=== PATIENT | female | born 1975 | race African-American/Black ===

== ENCOUNTER 2024-03-25 10:19 | Outpatient (CLI) | payer OTHER, SELFPAY ==
--- NOTE | ~2024-03-25 | MR_ITS ---
EXAMINATION: MR cervical spine wo con DATE: 03/25/2024 11:10 INDICATION: Cervical radiculopathy. TECHNIQUE: Magnetic resonance imaging (MRI) of the cervical spine was performed without intravenous c ontrast. COMPARISON: None FINDINGS: There is mild kyphosis of lower cervical spine. Vertebral body heights are normal. There is mildly decreased disc height at C4-C5, C5-C6, and C6-C7. The spinal cord signal intensity is normal. The following disc levels are specifically discussed: C2-C3: The disc does not extend beyond the endplate margin. There is no uncovertebral joint osteoarth ritis. There is no facet joint osteoarthritis. There is no neural foraminal stenosis. There is no carlos tral canal stenosis. C3-C4: There is a central extrusion. There is no uncovertebral joint osteoarthritis. There is mild bi lateral facet joint osteoarthritis. There is mild left neural foraminal stenosis. There is mild centr al canal stenosis. C4-C5: The disc does not extend beyond the endplate margin. There is mild bilateral uncovertebral eduin nt osteoarthritis. There is mild bilateral facet joint osteoarthritis. There is mild left neural fora soren stenosis. There is no central canal stenosis. C5-C6: The disc is bulging. There is moderate bilateral uncovertebral joint osteoarthritis. There is no facet joint osteoarthritis. There is mild bilateral neural foraminal stenosis. There is mild centr al canal stenosis with ventral indentation of the spinal cord. C6-C7: The disc is bulging with superimposed left central extrusion. There is mild bilateral uncovert ebral joint osteoarthritis. There is mild bilateral facet joint osteoarthritis. There is mild bilater al neural foraminal stenosis. There is severe central canal stenosis with ventral and dorsal indentat ion of the spinal cord. C7-T1: The disc does not extend beyond the endplate margin. There is no uncovertebral joint osteoarth ritis. There is mild bilateral facet joint osteoarthritis. There is no neural foraminal stenosis. The re is no central canal stenosis. IMPRESSION: 1. Severe spondylosis at C6-C7 and mild spondylosis at other levels. Reviewed, dictated and finalized at location [] [employer]
--- OUTSIDE RECORDS SUMMARY | 2024-03-25 10:31 | XMS_ITS | Patient Health Summary ---
Author Organization [facility] Address [address] [place] [address] Care Team Providers Care Fish Grader Name Role Phone Juan Ace MD Primary Care Provider Note from [facility],non-owned Affiliates and Associated Physician Practices is amultiple site organization consisting of ambulatory clinics and hospital sitesin [place], [place], [place] and [place]. This disclosure is being madepursuant to the Care Everywhere program and may not contain all information available regarding this patient. Last updated 17.[facility] Allergies No known active allergies Medications * Be aware that medications may not be up to date on this document. Alwaysverify current medications with the patient. * Probiotic Product (PROBIOTIC PO) Active Problems Problem Noted Date Diagnosed Date Subarachnoid hemorrhage 09/03/2020 Malignant hypertension 09/03/2020 Social History Tobacco Use Types Packs/Day Years Used Date Smoking Tobacco: Never Smokeless Tobacco: Never Alcohol Use Standard Drinks/Week Comments Yes 0 (1 standard drink = 0.6 oz pur e alcohol) AUDIT-C Answer Date Recorded Frequency of Alcohol Consumption Monthly or less 05/29/2019 Average Number of Drinks Not on file 020 Frequency of Binge Drinking Not on file 08/2019 Sex and Gender Information Value Date Recorded Sex Assigned at Not on file Gender Identity Not on file Sexual Orientation Not on file Last Filed Vital Signs Vital Sign Reading Time Taken Comments Blood Pressure 134/84 10/29/2020 2:52 PM CDT Pulse 76 10/29/2020 2:52 PM CDT Temperature 36.6 ??C (97.8 ??F) 10/29/2020 2:52 PM CD T Respiratory Rate 18 10/29/2020 2:52 PM CDT Oxygen Saturation 100% 10/29/2020 2:52 PM CDT Inhaled Oxygen Concentration - - Weight 72.8 kg (160 lb 6.4 oz) 10/29/2020 2:52 P M CDT Height 170.2 cm (5' 7 ) 10/29/2020 2:52 PM CDT Body Mass Index 25.12 10/29/2020 2:52 PM CDT Procedures * CT HEAD WO CONTRAST(Performed 10/29/2020) Performed for Subarachnoid hemorrhage (HCC) * CARDIAC EKG ORDER(Performed 09/15/2020) * PT EVAL AND TREAT(Performed 09/10/2020) * OT EVAL AND TREAT(Performed 09/10/2020) * PT EVAL AND TREAT(Performed 09/10/2020) * OT EVAL AND TREAT(Performed 09/10/2020) * MAGNESIUM BLOOD(Performed 09/10/2020) * CBC W/O DIFFERENTIAL(Performed 09/10/2020) * BASIC METABOLIC PANEL (CALCIUM TOTAL)(Performed 09/10/2020) * IR CAROTID CEREBRAL ANGIOGRAM(Performed 09/09/2020) Performed for Subarachnoid hemorrhage (HCC) * MAGNESIUM BLOOD(Performed 09/09/2020) * CBC W/O DIFFERENTIAL(Performed 09/09/2020) * BASIC METABOLIC PANEL (CALCIUM TOTAL)(Performed 09/09/2020) * MAGNESIUM BLOOD(Performed 09/08/2020) * CBC W/O DIFFERENTIAL(Performed 09/08/2020) * BASIC METABOLIC PANEL (CALCIUM TOTAL)(Performed 09/08/2020) * MAGNESIUM BLOOD(Performed 09/07/2020) * CBC W/O DIFFERENTIAL(Performed 09/07/2020) * BASIC METABOLIC PANEL (CALCIUM TOTAL)(Performed 09/07/2020) * MAGNESIUM BLOOD(Performed 09/06/2020) * CBC W/O DIFFERENTIAL(Performed 09/06/2020) * BASIC METABOLIC PANEL (CALCIUM TOTAL)(Performed 09/06/2020) * MAGNESIUM BLOOD(Performed 09/05/2020) * CBC W/O DIFFERENTIAL(Performed 09/05/2020) * BASIC METABOLIC PANEL (CALCIUM TOTAL)(Performed 09/05/2020) * MRI CERVICAL SPINE WWO CONT(Performed 09/04/2020) Performed for Subarachnoid hemorrhage (HCC) * MRI BRAIN WWO CONTRAST(Performed 09/04/2020) Performed for Subarachnoid hemorrhage (HCC) * IR CAROTID CEREBRAL ANGIOGRAM(Performed 09/04/2020) Performed for Subarachnoid hemorrhage (HCC) * CARDIAC EKG ORDER(Performed 09/04/2020) * MAGNESIUM BLOOD(Performed 09/04/2020) * CBC W/O DIFFERENTIAL(Performed 09/04/2020) * BASIC METABOLIC PANEL (CALCIUM TOTAL)(Performed 09/04/2020) * TROPONIN I(Performed 09/03/2020) * CT HEAD WO CONTRAST(Performed 09/03/2020) Performed for Subarachnoid hemorrhage (HCC) * TROPONIN I(Performed 09/03/2020) * URINE DRUG SCREEN IMMUNOASSAY(Performed 09/03/2020) * HCG URINE QUALITATIVE(Performed 09/03/2020) * BLOOD TYPE VERIFICATION(Performed 09/03/2020) * SARS-COV-2 (COVID-19)+INFLU A+B PCR RAPID(Performed 09/03/2020) * TYPE + SCREEN PANEL(Performed 09/03/2020) * SICKLE CELL SCREEN(Performed 09/03/2020) * TROPONIN I(Performed 09/03/2020) * PT-INR [facility](Performed 09/03/2020) * COMPREHENSIVE METABOLIC PANEL(Performed 09/03/2020) * CBC W AUTO DIFFERENTIAL(Performed 09/03/2020) * EKG 12-LEAD(Performed 09/03/2020) Performed for Subarachnoid hemorrhage (HCC) Results * CT HEAD WO CONTRAST (10/29/2020 2:24 PM CDT) Only the most recent of2 resultswithin the time period is included. Anatomical Region Laterality Modality Head Computed Tomogra phy 10/29/2020 7:06 PM CDT Impressions 10/29/2020 7:19 PM CDT IMPRESSION: 1. No acute intracranial abnormality. This report was electronically signed by ANDREA LOCKWOOD ??on 10/29/2020 7:19 PM . Narrative 10/29/2020 7:19 PM CDT EXAM: CT BRAIN WITHOUT CONTRAST CLINICAL INDICATION: I60.9: Subarachnoid hemorrhage TECHNIQUE: Contiguous axial images through head were obtained without intravenous contrast administration. ??Brain and bone window images were obtained. COMPARISON: 09/03/[address] FINDINGS: Brain parenchyma: Brain volume is normal for age. ??No large acute infarction, mass, hemorrhage or abnormal extra-axial fluid collection. Ventricles and the midline: Ventricles are normal without a midline shift or hydrocephalus. Skull and soft tissues: No acute fracture, bony or soft tissue abnormality. Extracranial structures: Orbits are normal bilaterally. Visualized parts of paranasal sinuses demonstrate no significant mucosal disease or opacification. ??Visualized mastoids and tympanic cavities demonstrate no significant opacification. Procedure Note Andrea Lockwood MD - 10/29/2020 EXAM: CT BRAIN WITHOUT CONTRAST CLINICAL INDICATION: I60.9: Subarachnoid hemorrhage TECHNIQUE: Contiguous axial images through head were obtained without intravenous contrast administration. Brain and bone window images were obtained. COMPARISON: 09/03/[address] FINDINGS: Brain parenchyma: Brain volume is normal for age. No large acute infarction, mass, hemorrhage or abnormal extra-axial fluid collection. Ventricles and the midline: Ventricles are normal without a midline shift or hydrocephalus. Skull and soft tissues: No acute fracture, bony or soft tissue abnormality. Extracranial structures: Orbits are normal bilaterally. Visualized parts of paranasal sinuses demonstrate no significant mucosal disease or opacification. Visualized mastoids and tympanic cavities demonstrate no significant opacification. IMPRESSION: 1. No acute intracranial abnormality. This report was electronically signed by ANDREA LOCKWOOD on 10/29/2020 7:[address] ORDERABLES * CARDIAC EKG ORDER (09/15/2020 11:02 AM CDT) Only the most recent of2 resultswithin the time period is included. Narrative 09/15/2020 11:02 AM CDT Ordered by an unspecified provider. Scanned Document CARDIAC SERVICES ORD ERABLES * (ABNORMAL) CBC W/O DIFFERENTIAL (09/10/2020 4:52 AM CDT) Only the most recent of7 resultswithin the time period is included. WBC 7.9 3.5 - 10.5 10? 3 /uL 09/10/2020 5:08 AM [facility] RBC 4.09 3.80 - 5.20 10? 6 /uL 09/10/2020 5:08 AM [facility] Hemoglobin 10.9(L) 12.0 - 15.6 g/dL 09/10/2020 5:08 AM [facility] Hematocrit 33.1(L) 35.0 - 45.0 % 09/10/2020 5:08 AM [facility] MCV 80.9 80.7 - 98.3 fL 09/10/2020 5:08 AM [facility] MCH 26.7 26.7 - 34.0 pg 09/10/2020 5:08 AM [facility] MCHC 32.9 30.8 - 35.9 g/dL 09/10/2020 5:08 AM [facility] Platelet Count 294 150 - 400 10? 3 /uL 09/10/2020 5:08 AM [facility] RDW-SD 38.2 36.0 - 50.0 fL 09/10/2020 5:08 AM [facility] RDW-CV 13.1 11.2 - 14.8 % 09/10/2020 5:08 AM [facility] MPV 10.2 9.4 - 12.9 fL 09/10/2020 5:08 AM [facility] nRBC Absolute 0.00 0 10? 3 /uL 09/10/2020 5:08 AM [facility] nRBC Auto 0.0 0 /100 WBC 09/10/2020 5:08 AM [facility] Blood BLOOD SPECIMEN / Unknown Venipuncture / Unknown 09/10/2020 4:52 AM CDT 09/10/2020 5:01 AM [facility] Oliver Haskins MD LAB - HEMATOLOGY O RDERABLES [facility] [address] [place] [address], [facility] [phone] * BASIC METABOLIC PANEL (CALCIUM TOTAL) (09/10/2020 4:52 AM CDT) Only the most recent of7 resultswithin the time period is included. BUN 13 7 - 26 mg/dL 09/10/2020 5:27 AM [facility] Creatinine 0.63 0.56 - 0.96 mg/dL 09/10/2020 5:27 AM [facility] Sodium 140 136 - 145 mmol/L 09/10/2020 5:27 AM [facility] Potassium 4.0 3.5 - 4.5 mmol/L 09/10/2020 5:27 AM [facility] Chloride 106 98 - 107 mmol/L 09/10/2020 5:27 AM [facility] CO2 28 22 - 29 mmol/L 09/10/2020 5:27 AM [facility] Glucose 109 70 - 115 mg/dL 09/10/2020 5:27 AM [facility] Calcium 8.8 8.4 - 10.2 mg/dL 09/10/2020 5:27 AM [facility] Anion Gap 10 8 - 18 09/10/2020 5:27 AM [facility] BUN/Creatinine Ratio 21 7 - 23 09/10/2020 5:27 AM [facility] Osmolality Calculated 291 270 - 300 mOsm/kg 09/10/2020 5:27 AM [facility] eGFR by CKD-EPI >90 >=90 mL/min/1.7 3 m2 09/10/2020 5:27 AM [facility] Blood BLOOD SPECIMEN / Unknown Venipuncture / Unknown 09/10/2020 4:52 AM CDT 09/10/2020 5:01 AM T Oliver Haskins MD LAB - CHEMISTRY OR DERABLES [address] [address], [facility] [phone] * MAGNESIUM BLOOD (09/10/2020 4:52 AM CDT) Only the most recent of7 resultswithin the time period is included. Pathologist [facility] Magnesium 1.8 1.6 - 2.6 mg/dL 09/10/2020 5:27 AM CDT [facility] Blood BLOOD SPECIMEN / Unknown Venipuncture / Unknown 09/10/2020 4:52 AM CDT 09/10/2020 5:01 AM CDT Oliver Haskins MD LAB - CHEMISTRY OR DERABLES Performing Organization Address City/State/[facility] Co de Phone Number [facility] [address] [place] [address], [facility] [phone] * IR CAROTID CEREBRAL ANGIOGRAM (09/09/2020 12:20 PM CDT) Only the most recent of2 resultswithin the time period is included. Anatomical Region Laterality Modality Head X-Ray Angiograph y 09/09/2020 1:26 PM CDT Impressions 09/29/2020 2:14 PM CDT Impression: 1. No angiographic evidence of aneurysm, dissection, or other vascular abnormality within anterior and posterior circulation to suggest an underlying etiology of hemorrhage 2. There is fusiform dilatation of R V3-4 junction 3. Xkugff-go-mbaap appearance of bilateral ICAs in mid-cervical segments is highly suggestive ofFMD changes as previously described in angiogram dated 09/04/2020. I, Dr. NAVDEEP ANTHONY M.D. have personally reviewed and interpreted this examination/study. This report was electronically signed by NAVDEEP ANTHONY M.D. ??on 09/29/2020 2:14 PM . Narrative 09/29/2020 2:14 PM CDT Procedure: Diagnostic Catheter Cerebral Angiogram Comparison Study: Cerebral Angiogram dated 09/04/2020 History: The patient is a 44 year-old woman who presents with subarachnoid hemorrhage. Catheter angiography from 09/04/2020 was negative for aneurysm or vascular abnormalities. She is here for repeat catheter angiography to rule out the presence of aneurysm or other vascular abnormality as the cause of the hemorrhage.. Janitor Helper: Yamil Anthony Page Makeup System Operator: Carlo Paulson Vessels: Ultrasound Guided Access of Right Femoral Radial Artery Left Vertebral Artery Angiogram: Cerebral Left Internal Carotid Artery Angiogram: Cerebral Left External Carotid Artery Angiogram Right Internal Carotid Artery Angiogram: Cerebral Right External Carotid Artery Angiogram Right Vertebral Artery Angiogram: Cerebral Right Femoral Artery Angiogram Anesthesia: Moderate sedation on this adult patient ws ordered by the subway train operator, administered intravenously in my presence, and monitored by the procedure nurse as an independent trained observer who was present throughout the procedure. The following parameters were monitored: oxygen saturation, heart rate, blood pressure, and response to care. Intra-service sedation start time was 1045 and end time was 1205 during which I was present. Total physician intra-service sedation time was 80 minutes. For details on sedation patient evaluation, please review the evaluation in [facility]. For details on monitored clinical parameters during the intra-service sedation time, please review the procedure nurse documentation in [facility]. Procedural detail: The risks, benefits, and alternatives to procedure were discussed in detail with the patient and her family. These included but were not limited to the risk of blood loss, vessel injury, stroke, renal injury, and contrast allergy. The patient was brought to the biplane angiography suite where she underwent prep and drape procedures. Limited ultrasound of the right common femoral ??artery demonstrated a patent vessel. The take off of the profunda and other arteries were identified. A hull scale image was documented. The right common femoral artery was accessed using a micropuncture needle. The needle entry was documented. Following a series of exchanges, a 6 Norwegian 35 cm Brite tip sheath was placed in the right femoral artery and a 5 Norwegian tapered angled catheter was navigated into the aortic arch. The catheter was used to select the left subclavian artery followed by the left vertebral artery and a cerebral angiogram was obtained. The catheter was returned to the arch and used to select the left common carotid artery followed by the left internal carotid artery and a cerebral angiogram was obtained. The catheter was returned to the common carotid artery and used to select the left external carotid artery and an angiogram was obtained. The catheter was returned to the arch and used to select the brachiocephalic artery followed by the right common carotid artery and finally the right internal carotid artery and a cerebral angiogram was obtained. The catheter was returned to the right common carotid artery and used select the right external carotid artery and an angiogram was obtained. The catheter was returned to the brachiocephalic artery and used to select the right subclavian artery followed by the right vertebral artery and a cerebral angiogram was obtained. The right femoral artery angiogram was obtained through the sheath. All catheters and sheaths were removed from the arterial system. Hemostasis was achieved using a 6 Norwegian Angio-Seal closure device. Hemostasis was immediate at the end of the closure procedure. The right dorsalis pedis pulse was palpable at the end of the closure procedure. The patient tolerated the procedure without immediate complications. She was returned to the recovery area and hemodynamically stable condition neurologically unchanged. The estimated blood loss was less than 10 mL. A total of ??10.5 ??minutes of fluoroscopic time and 140 ml of Isovue-300 contrast were utilized for the study. Findings: There was good arterial, capillary, and venous opacification of all angiographic runs. The left vertebral artery angiogram reveals a V3, V4, and vertebrobasilar junction that are normal in course and caliber. The major vessels to the cerebellum are normal in course and caliber. The basilar artery and posterior cerebral arteries are also normal in course and caliber. The venous drainage is also normal. There is no evidence of aneurysm or dissection on this angiogram. The left common carotid artery angiogram reveals a normal carotid bifurcation. Visualized branches of the external carotid artery are normal in course and caliber. The left internal carotid artery angiogram reveals an irregular ryhjed-cv-vxyeh appearance in the mid-distal cervical segment that was previously visualized on prior angiography. The middle cerebral artery and anterior cerebral artery are also normal in course and caliber as is the venous drainage. There is no evidence of aneurysm. The left external carotid artery angiogram reveals a normal course and caliber of the visualized branches. There is no evidence of early venous shunting to suggest underlying vascular abnormality. The right internal carotid artery angiogram reveals an irregular tkgxse-gd-kqtlj appearance in the mid-distal cervical segment that was previously visualized on prior angiography. The middle cerebral artery and anterior cerebral artery are also normal in course and caliber as is the venous drainage. There is no evidence of aneurysm. The right external carotid artery angiogram reveals a normal course and caliber of the visualized branches. There is no evidence of early venous shunting to suggest underlying vascular abnormality. The right vertebral artery angiogram reveals a fusiform dilatation at the V3-4 junction. There is no evidence of aneurysm or dissection in this angiogram. There is mild irregularity of the V2 segment. The remainder of the posterior circulation is as described above. The right femoral artery angiogram reveals a puncture site above the femoral bifurcation. Procedure Note Edgell, Navdeep C, MD - 09/29/2020 Procedure: Diagnostic Catheter Cerebral Angiogram Comparison Study: Cerebral Angiogram dated 09/04/2020 History: The patient is a 44 year-old woman who presents withsubarachnoid hemorrhage. Catheter angiography from 09/04/2020 was negative foraneurysm or vascular abnormalities. She is here for repeat catheter angiographyto rule out the presence of aneurysm or other vascular abnormality as the cause of the hemorrhage.. Janitor Helper: Yamil Anthony Page Makeup System Operator: Carlo Paulson Vessels: Ultrasound Guided Access of Right Femoral Radial Artery Left Vertebral Artery Angiogram: Cerebral Left Internal Carotid Artery Angiogram: Cerebral Left External Carotid Artery Angiogram Right Internal Carotid Artery Angiogram: Cerebral Right External Carotid Artery Angiogram Right Vertebral Artery Angiogram: Cerebral Right Femoral Artery Angiogram Anesthesia: Moderate sedation on this adult patient ws ordered by the subway train operator, administered intravenously in my presence, and monitored bythe procedure nurse as an independent trained observer who was present throughout the procedure. The following parameters were monitored:oxygen saturation, heart rate, blood pressure, and response to care. Intra-service sedation start time was 1045 and end time was 1205 during which I was present. Total physician intra-service sedation time was 80 minutes. For details on sedation patient evaluation, please review the evaluation in [facility]. For details on monitored clinical parameters during the intra-service sedation time, please review the procedure nurse documentation in [facility]. Procedural detail: The risks, benefits, and alternatives to procedurewere discussed in detail with the patient and her family. These included but were not limited to the risk of blood loss, vessel injury, stroke, renal injury, and contrast allergy. The patient was brought to the biplane angiography suite where she underwent prep and drape procedures. Limited ultrasound of the right common femoral artery demonstrated a patent vessel. The take off of the profunda and other arteries were identified. A hull scale image was documented. The right common femoral artery was accessed using a micropuncture needle. The needle entry was documented. Following a series of exchanges, a 6 Norwegian 35 cm Brite tip sheath was placed in the right femoral artery and a 5 Norwegian tapered angled catheter was navigated into the aortic arch. The catheter was used to select the left subclavian artery followed bythe left vertebral artery and a cerebral angiogram was obtained. Thecatheter was returned to the arch and used to select the left common carotidartery followed by the left internal carotid artery and a cerebral angiogramwas obtained. The catheter was returned to the common carotid artery andused to select the left external carotid artery and an angiogram wasobtained. The catheter was returned to the arch and used to select the brachiocephalic artery followed by the right common carotid artery and finally the right internal carotid artery and a cerebral angiogram was obtained. The catheter was returned to the right common carotid arteryand used select the right external carotid artery and an angiogram was obtained. The catheter was returned to the brachiocephalic artery andused to select the right subclavian artery followed by the right vertebral artery and a cerebral angiogram was obtained. The right femoral artery angiogram was obtained through the sheath. All catheters and sheaths were removed from the arterial system. Hemostasis was achieved using a 6 Norwegian Angio-Seal closure device. Hemostasis was immediate at the end of the closure procedure. The right dorsalis pedis pulse was palpable at the end of the closure procedure. The patient tolerated the procedure without immediate complications. She was returned to the recovery area and hemodynamically stable condition neurologically unchanged. The estimated blood loss was less than 10 mL. A total of 10.5 minutes of fluoroscopic time and 140 ml of Isovue-300 contrast were utilized for the study. Findings: There was good arterial, capillary, and venous opacification of all angiographic runs. The left vertebral artery angiogram reveals a V3, V4, andvertebrobasilar junction that are normal in course and caliber. The major vessels to the cerebellum are normal in course and caliber. The basilar artery and posterior cerebral arteries are also normal in course and caliber. The venous drainage is also normal. There is no evidence of aneurysm or dissection on this angiogram. The left common carotid artery angiogram reveals a normal carotid bifurcation. Visualized branches of the external carotid artery arenormal in course and caliber. The left internal carotid artery angiogram reveals an irregular pubjdg-pt-ucjss appearance in the mid-distal cervical segment that was previously visualized on prior angiography. The middle cerebral arteryand anterior cerebral artery are also normal in course and caliber as is the venous drainage. There is no evidence of aneurysm. The left external carotid artery angiogram reveals a normal course and caliber of the visualized branches. There is no evidence of early venous shunting to suggest underlying vascular abnormality. The right internal carotid artery angiogram reveals an irregular zvxevu-ww-pgunl appearance in the mid-distal cervical segment that was previously visualized on prior angiography. The middle cerebral arteryand anterior cerebral artery are also normal in course and caliber as is the venous drainage. There is no evidence of aneurysm. The right external carotid artery angiogram reveals a normal course and caliber of the visualized branches. There is no evidence of early venous shunting to suggest underlying vascular abnormality. The right vertebral artery angiogram reveals a fusiform dilatation atthe V3-4 junction. There is no evidence of aneurysm or dissection in this angiogram. There is mild irregularity of the V2 segment. The remainderof the posterior circulation is as described above. The right femoral artery angiogram reveals a puncture site above the femoral bifurcation. Impression: 1. No angiographic evidence of aneurysm, dissection, or other vascular abnormality within anterior and posterior circulation to suggest an underlying etiology of hemorrhage 2. There is fusiform dilatation of R V3-4 junction 3. Ejfyho-yz-lnqpj appearance of bilateral ICAs in mid-cervicalsegments is highly suggestive ofFMD changes as previously described in angiogram dated 09/04/2020. I, Dr. NAVDEEP ANTHONY M.D. have personally reviewed and interpretedthis examination/study. This report was electronically signed by NAVDEEP ANTHONY M.D. on09/29/2020 2:14 PM . Chad Han MD IR ORDERABLES * MRI CERVICAL SPINE WWO CONT (09/04/2020 6:02 PM CDT) Anatomical Region Laterality Modality Spine Magnetic Resonan ce 09/05/2020 10:1 3 AM CDT Impressions 09/05/2020 10:41 AM CDT IMPRESSION: 1.Suggestion of subtle lateral vascular suppression in the bilateral cerebral sulci, predominantly posteriorly and in the interpeduncular cistern concerning for trace subarachnoid hemorrhage. 2.No evidence of mass effect or midline shift. 3.No evidence of abnormal enhancement. 4.Multilevel degenerative disc and joint disease as detailed level by level above. Subtle cord signal changes concerning for cord edema and/or myelomalacia. Evaluation is however limited due to the presence of motion artifacts. This report was electronically signed by JULIO RAO ??on 09/05/2020 10:41 AM . Narrative 09/05/2020 10:41 AM CDT MRI BRAIN WWO CONTRAST, MRI CERVICAL SPINE WWO CONT DATE: 09/04/2020 6:02 PM EXAMINATION: 1.Magnetic resonance imaging (MRI) of the brain without and with contrast 2.MRI of the cervical spine without and with contrast HISTORY: I60.9: Subarachnoid hemorrhage TECHNIQUE: MRI of the brain and cervical spine was performed prior to and following the uneventful administration of 7 mL intravenous GADAVIST contrast according to standard protocol. COMPARISON: CT of the head from 09/03/2020. FINDINGS: Brain: There is very subtle lack of FLAIR signal suppression in the bilateral cerebral sulci, predominantly posteriorly and within the interpeduncular cistern concerning for trace subarachnoid hemorrhage. No evidence of acute cerebral infarction is seen. The ventricles are of normal size, shape, and morphology. No mass effect or midline shift is seen. The brain parenchyma appears otherwise grossly unremarkable for the patient's stated age. No enhancing lesions are identified. The corpus callosum and sella appear normal. The posterior fossa and brainstem appear normal. Other than mild paranasal sinus disease, the visualized portions of the orbits, paranasal sinuses, and mastoids appear normal. Normal flow voids are demonstrated in the carotid arteries and basilar artery. The calvarium appears normal. Cervical spine: The images are degraded due to motion artifacts. Mild kyphosis centered at C5-C6. Vertebral bodies are normal in height without evidence of compression fractures. Marrow signal intensity is normal. The craniocervical junction and its stabilizing ligaments appear normal. Multilevel mild cord abutment and trace T2/STIR hyperintensity concerning for a cord edema and/or myelomalacia however evaluation is limited due to the presence of motion artifacts. No abnormal enhancement is identified. There is mild disc height loss at multiple levels. There is developmental cervical spinal canal stenosis and superimposed multilevel degenerative disc and joint disease. There are varying degrees of mild facet osteoarthritis. There are varying degrees of mild uncovertebral joint osteoarthritis with the same degree of neural foraminal stenosis at these levels. No soft tissue abnormality is identified. Normal flow voids are identified in the vertebral arteries. At C2-C3: The spinal canal and neural foramina are patent. At C3-C4: There is mild disc bulge/disc osteophyte complex causing central indentation on the ventral thecal sac. No high-grade spinal canal stenosis. Mild facet arthropathy and uncovertebral hypertrophy. No significant neural foraminal stenosis. At C4-C5: Minimal disc bulge. No significant spinal canal stenosis. Mild facet arthropathy and uncovertebral hypertrophy. Minimal left neural foraminal narrowing. No significant neural foraminal stenosis. At C5-C6: there is diffuse disc bulge/disc osteophyte complex. There is mild spinal canal stenosis. There is mild cord abutment. There are bilateral facet arthropathy and uncovertebral hypertrophy. There is mild to moderate right neural foraminal stenosis. At C6-C7: There is diffuse disc bulge/disc mass effect complex. There is mild thickening of the ligamentum flavum. There is mild to moderate spinal canal stenosis. There is mild cord abutment. There are bilateral facet arthropathy and uncovertebral hypertrophy. No high-grade neural foraminal stenosis. At C7-T1: The spinal canal and neural foramina are patent. Procedure Note Julio Rao MD - 09/05/2020 MRI BRAIN WWO CONTRAST, MRI CERVICAL SPINE WWO CONT DATE: 09/04/2020 6:02 PM EXAMINATION: 1.Magnetic resonance imaging (MRI) of the brain without and withcontrast 2.MRI of the cervical spine without and with contrast HISTORY: I60.9: Subarachnoid hemorrhage TECHNIQUE: MRI of the brain and cervical spine was performed prior toand following the uneventful administration of 7 mL intravenous GADAVIST contrast according to standard protocol. COMPARISON: CT of the head from 09/03/2020. FINDINGS: Brain: There is very subtle lack of FLAIR signal suppression in the bilateral cerebral sulci, predominantly posteriorly and within the interpeduncular cistern concerning for trace subarachnoid hemorrhage. No evidence ofacute cerebral infarction is seen. The ventricles are of normal size, shape,and morphology. No mass effect or midline shift is seen. The brainparenchyma appears otherwise grossly unremarkable for the patient's stated age. No enhancing lesions are identified. The corpus callosum and sella appear normal. The posterior fossa and brainstem appear normal. Other than mild paranasal sinus disease, the visualized portions of the orbits, paranasal sinuses, and mastoids appear normal. Normal flow voids are demonstrated in the carotid arteries and basilar artery. Thecalvarium appears normal. Cervical spine: The images are degraded due to motion artifacts. Mild kyphosis centered at C5-C6. Vertebral bodies are normal in height without evidence of compression fractures. Marrow signal intensity is normal. The craniocervical junction and its stabilizing ligaments appear normal. Multilevel mild cord abutment and trace T2/STIR hyperintensity concerning for a cord edema and/or myelomalacia however evaluation is limited due to the presence of motion artifacts. No abnormal enhancement is identified. There is mild disc height loss at multiple levels. There isdevelopmental cervical spinal canal stenosis and superimposed multilevel degenerative disc and joint disease. There are varying degrees of mild facet osteoarthritis. There are varying degrees of mild uncovertebral joint osteoarthritis with the same degree of neural foraminal stenosis atthese levels. No soft tissue abnormality is identified. Normal flow voids are identified in the vertebral arteries. At C2-C3: The spinal canal and neural foramina are patent. At C3-C4: There is mild disc bulge/disc osteophyte complex causingcentral indentation on the ventral thecal sac. No high-grade spinal canal stenosis. Mild facet arthropathy and uncovertebral hypertrophy. No significant neural foraminal stenosis. At C4-C5: Minimal disc bulge. No significant spinal canal stenosis. Mild facet arthropathy and uncovertebral hypertrophy. Minimal left neural foraminal narrowing. No significant neural foraminal stenosis. At C5-C6: there is diffuse disc bulge/disc osteophyte complex. There is mild spinal canal stenosis. There is mild cord abutment. There are bilateral facet arthropathy and uncovertebral hypertrophy. There is mild to moderate right neural foraminal stenosis. At C6-C7: There is diffuse disc bulge/disc mass effect complex. There is mild thickening of the ligamentum flavum. There is mild to moderatespinal canal stenosis. There is mild cord abutment. There are bilateral facet arthropathy and uncovertebral hypertrophy. No high-grade neuralforaminal stenosis. At C7-T1: The spinal canal and neural foramina are patent. IMPRESSION: 1.Suggestion of subtle lateral vascular suppression in the bilateral cerebral sulci, predominantly posteriorly and in the interpeduncular cistern concerning for trace subarachnoid hemorrhage. 2.No evidence of mass effect or midline shift. 3.No evidence of abnormal enhancement. 4.Multilevel degenerative disc and joint disease as detailed level by level above. Subtle cord signal changes concerning for cord edema and/or myelomalacia. Evaluation is however limited due to the presence ofmotion artifacts. This report was electronically signed by JULIO RAO on09/05/2020 10:41 AM . Mike Fuentes MD MR ORDERABLES * MRI BRAIN WWO CONTRAST (09/04/2020 6:02 PM CDT) Anatomical Region Laterality Modality Head Magnetic Resonan ce 09/05/2020 10:1 3 AM CDT Impressions 09/05/2020 10:41 AM CDT IMPRESSION: 1.Suggestion of subtle lateral vascular suppression in the bilateral cerebral sulci, predominantly posteriorly and in the interpeduncular cistern concerning for trace subarachnoid hemorrhage. 2.No evidence of mass effect or midline shift. 3.No evidence of abnormal enhancement. 4.Multilevel degenerative disc and joint disease as detailed level by level above. Subtle cord signal changes concerning for cord edema and/or myelomalacia. Evaluation is however limited due to the presence of motion artifacts. This report was electronically signed by JULIO RAO ??on 09/05/2020 10:41 AM . Narrative 09/05/2020 10:41 AM CDT MRI BRAIN WWO CONTRAST, MRI CERVICAL SPINE WWO CONT DATE: 09/04/2020 6:02 PM EXAMINATION: 1.Magnetic resonance imaging (MRI) of the brain without and with contrast 2.MRI of the cervical spine without and with contrast HISTORY: I60.9: Subarachnoid hemorrhage TECHNIQUE: MRI of the brain and cervical spine was performed prior to and following the uneventful administration of 7 mL intravenous GADAVIST contrast according to standard protocol. COMPARISON: CT of the head from 09/03/2020. FINDINGS: Brain: There is very subtle lack of FLAIR signal suppression in the bilateral cerebral sulci, predominantly posteriorly and within the interpeduncular cistern concerning for trace subarachnoid hemorrhage. No evidence of acute cerebral infarction is seen. The ventricles are of normal size, shape, and morphology. No mass effect or midline shift is seen. The brain parenchyma appears otherwise grossly unremarkable for the patient's stated age. No enhancing lesions are identified. The corpus callosum and sella appear normal. The posterior fossa and brainstem appear normal. Other than mild paranasal sinus disease, the visualized portions of the orbits, paranasal sinuses, and mastoids appear normal. Normal flow voids are demonstrated in the carotid arteries and basilar artery. The calvarium appears normal. Cervical spine: The images are degraded due to motion artifacts. Mild kyphosis centered at C5-C6. Vertebral bodies are normal in height without evidence of compression fractures. Marrow signal intensity is normal. The craniocervical junction and its stabilizing ligaments appear normal. Multilevel mild cord abutment and trace T2/STIR hyperintensity concerning for a cord edema and/or myelomalacia however evaluation is limited due to the presence of motion artifacts. No abnormal enhancement is identified. There is mild disc height loss at multiple levels. There is developmental cervical spinal canal stenosis and superimposed multilevel degenerative disc and joint disease. There are varying degrees of mild facet osteoarthritis. There are varying degrees of mild uncovertebral joint osteoarthritis with the same degree of neural foraminal stenosis at these levels. No soft tissue abnormality is identified. Normal flow voids are identified in the vertebral arteries. At C2-C3: The spinal canal and neural foramina are patent. At C3-C4: There is mild disc bulge/disc osteophyte complex causing central indentation on the ventral thecal sac. No high-grade spinal canal stenosis. Mild facet arthropathy and uncovertebral hypertrophy. No significant neural foraminal stenosis. At C4-C5: Minimal disc bulge. No significant spinal canal stenosis. Mild facet arthropathy and uncovertebral hypertrophy. Minimal left neural foraminal narrowing. No significant neural foraminal stenosis. At C5-C6: there is diffuse disc bulge/disc osteophyte complex. There is mild spinal canal stenosis. There is mild cord abutment. There are bilateral facet arthropathy and uncovertebral hypertrophy. There is mild to moderate right neural foraminal stenosis. At C6-C7: There is diffuse disc bulge/disc mass effect complex. There is mild thickening of the ligamentum flavum. There is mild to moderate spinal canal stenosis. There is mild cord abutment. There are bilateral facet arthropathy and uncovertebral hypertrophy. No high-grade neural foraminal stenosis. At C7-T1: The spinal canal and neural foramina are patent. Procedure Note Julio Rao MD - 09/05/2020 MRI BRAIN WWO CONTRAST, MRI CERVICAL SPINE WWO CONT DATE: 09/04/2020 6:02 PM EXAMINATION: 1.Magnetic resonance imaging (MRI) of the brain without and withcontrast 2.MRI of the cervical spine without and with contrast HISTORY: I60.9: Subarachnoid hemorrhage TECHNIQUE: MRI of the brain and cervical spine was performed prior toand following the uneventful administration of 7 mL intravenous GADAVIST contrast according to standard protocol. COMPARISON: CT of the head from 09/03/2020. FINDINGS: Brain: There is very subtle lack of FLAIR signal suppression in the bilateral cerebral sulci, predominantly posteriorly and within the interpeduncular cistern concerning for trace subarachnoid hemorrhage. No evidence ofacute cerebral infarction is seen. The ventricles are of normal size, shape,and morphology. No mass effect or midline shift is seen. The brainparenchyma appears otherwise grossly unremarkable for the patient's stated age. No enhancing lesions are identified. The corpus callosum and sella appear normal. The posterior fossa and brainstem appear normal. Other than mild paranasal sinus disease, the visualized portions of the orbits, paranasal sinuses, and mastoids appear normal. Normal flow voids are demonstrated in the carotid arteries and basilar artery. Thecalvarium appears normal. Cervical spine: The images are degraded due to motion artifacts. Mild kyphosis centered at C5-C6. Vertebral bodies are normal in height without evidence of compression fractures. Marrow signal intensity is normal. The craniocervical junction and its stabilizing ligaments appear normal. Multilevel mild cord abutment and trace T2/STIR hyperintensity concerning for a cord edema and/or myelomalacia however evaluation is limited due to the presence of motion artifacts. No abnormal enhancement is identified. There is mild disc height loss at multiple levels. There isdevelopmental cervical spinal canal stenosis and superimposed multilevel degenerative disc and joint disease. There are varying degrees of mild facet osteoarthritis. There are varying degrees of mild uncovertebral joint osteoarthritis with the same degree of neural foraminal stenosis atthese levels. No soft tissue abnormality is identified. Normal flow voids are identified in the vertebral arteries. At C2-C3: The spinal canal and neural foramina are patent. At C3-C4: There is mild disc bulge/disc osteophyte complex causingcentral indentation on the ventral thecal sac. No high-grade spinal canal stenosis. Mild facet arthropathy and uncovertebral hypertrophy. No significant neural foraminal stenosis. At C4-C5: Minimal disc bulge. No significant spinal canal stenosis. Mild facet arthropathy and uncovertebral hypertrophy. Minimal left neural foraminal narrowing. No significant neural foraminal stenosis. At C5-C6: there is diffuse disc bulge/disc osteophyte complex. There is mild spinal canal stenosis. There is mild cord abutment. There are bilateral facet arthropathy and uncovertebral hypertrophy. There is mild to moderate right neural foraminal stenosis. At C6-C7: There is diffuse disc bulge/disc mass effect complex. There is mild thickening of the ligamentum flavum. There is mild to moderatespinal canal stenosis. There is mild cord abutment. There are bilateral facet arthropathy and uncovertebral hypertrophy. No high-grade neuralforaminal stenosis. At C7-T1: The spinal canal and neural foramina are patent. IMPRESSION: 1.Suggestion of subtle lateral vascular suppression in the bilateral cerebral sulci, predominantly posteriorly and in the interpeduncular cistern concerning for trace subarachnoid hemorrhage. 2.No evidence of mass effect or midline shift. 3.No evidence of abnormal enhancement. 4.Multilevel degenerative disc and joint disease as detailed level by level above. Subtle cord signal changes concerning for cord edema and/or myelomalacia. Evaluation is however limited due to the presence ofmotion artifacts. This report was electronically signed by JULIO RAO on09/05/2020 10:41 AM . Mike Fuentes MD MR ORDERABLES * TROPONIN I (09/03/2020 8:28 PM CDT) Only the most recent of3 resultswithin the time period is included. [facility] Troponin I <0.010 <0.032 ng/mL 09/03/2020 9:09 PM CDT [facility] Blood BLOOD SPECIMEN / Unknown Venipuncture / Unknown 09/03/2020 8:28 PM CDT 09/03/2020 8:38 PM CDT Oliver Haskins MD LAB - CHEMISTRY OR DERABLES [address] [address], [facility] [phone] * HCG URINE QUALITATIVE (09/03/2020 4:14 PM CDT) Pathologist [facility] Test Urine Negative Negative 09/03/2020 4:41 PM CDT [facility] Urine URINE / Unknown Collection / Unknown 09/03/2020 4:14 PM CDT 09/03/2020 4:21 PM CDT Oliver Haskins MD LAB - URINALYSIS O RDERABLES [facility] [address] [place] [address], [facility] [phone] * (ABNORMAL) URINE DRUG SCREEN IMMUNOASSAY (09/03/2020 4:14 PM CDT) [facility] Amphetamines Screen Urine Negative Negative : < 1000 ng/mL 09/03/2020 4:53 PM [facility] Barbiturates Screen Urine Negative Negative : < 200 ng/mL 09/03/2020 4:53 PM [facility] Benzodiazepine Screen Urine Negative Negative : < 200 ng/mL 09/03/2020 4:53 PM [facility] Opiates Urine Positive(A) Negative : < 300 ng/mL 09/03/2020 4:53 PM [facility] Comment:Positive urine opiat e screening results should be confirmed by another generally accepted non-immunological method such as gas chromatography or mass spectrometry. Cocaine Metabolites Urine Negative Negative : < 300 ng/mL 09/03/2020 4:53 PM [facility] Phencyclidine Screen Urine Negative Negative : < 25 ng/ml 09/03/2020 4:53 PM [facility] Cannabinoids Screen Urine Negative Negative : <50 ng/mL 09/03/2020 4:53 PM [facility] Methadone Screen Urine Negative Negative : < 300 ng/mL 09/03/2020 4:53 PM [facility] Fentanyl Screen Urine Negative Negative : <1.0 ng/mL 09/03/2020 4:53 PM [facility] Urine URINE / Unknown Collection / Unknown 09/03/2020 4:14 PM CDT 09/03/2020 4:21 PM CDT Narrative [facility] - 09/03/2020 4:53 PM CDT The Urine Toxicology Screening Panel does not screen for Propoxyphene, Meprobamate, Carisoprodol, Trazodone, [id number]-zul-whwxozg medications and/or volatiles (Acetone, Isopropanol, Methanol or Ethylene Glycol). Ethanol, Salicylate, Acetaminophen, Tricyclic Antidepressants and several therapeutic drugs may be individually assayed in serum or plasma specimen. Toxicology testing by the [facility] is an aid to medical diagnosis and treatment of patients. No documented chain of custody was maintained. Results are intended to be used for clinical purposes only. ? Oliver Haskins MD LAB - URINE CHEMIS TRY ORDERABLES Performing Organization Address [facility] Co de Phone Number [facility] [address] [place] [phone], [facility] [phone] * BLOOD TYPE VERIFICATION (09/03/2020 2:52 PM CDT) ABO Rh O POS 09/03/2020 3:2 8 PM CDT [facility] Blood Bank BLOOD SPECIMEN / Unknown Venipuncture / Unknown 09/03/2020 2:52 PM CDT 09/03/2020 3:00 PM CDT Provider Unknown LAB - BLOOD BANK ORD ERABLES Performing Organization Address [facility] Co de Phone Number [facility] [address] [place] [phone], [place] [phone] * SARS-COV-2 (COVID-19)+INFLU A+B PCR RAPID (09/03/2020 2:48 PM CDT) COVID-19 PCR Not detected Not detected 09/04/19 3:23 PM CDT [facility] Influenza A Rapid ALEXEI Not Detected Not Detected 09/03/2020 3:23 PM CDT [facility] Influenza B ALEXEI Rapid Not Detected Not Detected 09/03/2020 3:23 PM CDT [facility] Microbiology SPECIMEN FROM NASOPHARYNGEAL STRUCTURE / Unknown Collection / Unknown 09/03/2020 2:48 PM CDT 09/03/2020 2:58 PM CDT Narrative [facility] - 09/03/2020 3:23 PM CDT Influenza assay performed by Nucleic Acid Amplification. Results do not exclude the possibility of a mixed viral infection. NOTE: ??Detecting and identifying specific viral nucleic acids from individuals exhibiting signs and symptoms of respiratory infection aids in the diagnosis of respiratory infection, if used in conjunction with other clinical and laboratory findings. The results of this test should not be used as the sole basis for diagnosis, treatment, or patient management decisions. This nucleic acid amplification assay performance was validated by [facility]. This test has been authorized by the Food and Drug administration (FDA)under an Emergency??Use Authorization (EUA). This test has been validated in accordance with the FDA's guidance document Policy for Diagnostic Testing in Laboratories Certified to perform High Complexity Testing under CLIA prior to Emergency Use Authorization for Coronavirus Disease-2019 during the Public Health Emergency issued on April 21, 2019. FDA independent review of this validation is pending. This test is only authorized for the duration of time the declaration that circumstances exist justifying the authorization of emergency use of in vitro diagnostic tests for detection of SARS-CoV-2 virus and/or diagnosis of COVID-19 infection under section 564(b)(1) of the Act, 21 U.S.C 360bbb-3 (b)(1), unless the authorization is terminated or revoked sooner. Fact Sheets for this EUA assay are available upon request. Oliver Haskins MD LAB - MICROBIOLOGY ORDERABLES [facility] [address] [place] [address], [facility] [phone] * PT-INR [facility] (09/03/2020 1:56 PM CDT) Pathologist [facility] PT 12.8 12.1 - 14.8 Seconds 09/03/2020 2:18 PM CDT [facility] INR 1.0 See Comment 09/03/2020 2:18 PM CDT [facility] Comment:The suggested therap eutic range for standard coumadin (warfarin) therapy is an INR of 2.0-3.0. For high-risk patients (Mechanical Mitral Valve Prosthesis, etc.), the suggested prophylactic therapeutic range is an INR of 2.5-3.5. Blood BLOOD SPECIMEN / Unknown Venipuncture / Unknown 09/03/2020 1:56 PM CDT 09/03/2020 2:10 PM CDT Oliver Haskins MD LAB - COAGULATION ORDERABLES Performing Organization Address City/[facility]/ZIP Co de Phone Number [address] [address], [facility] [phone] * TYPE + SCREEN PANEL (09/03/2020 1:56 PM CDT) Pathologist [facility] Antibody Screen NEG 2:41 PM CDT [facility] ABO Rh O POS 09/03/2020 2:41 PM CDT [facility] Blood Bank BLOOD SPECIMEN / Unknown Venipuncture / Unknown 09/03/2020 1:56 PM CDT 09/03/2020 2:02 PM CDT Oliver Haskins MD LAB - BLOOD BANK O RDERABLES [facility] [address] [place] [phone], [facility] [phone] * (ABNORMAL) SICKLE CELL SCREEN (09/03/2020 1:56 PM CDT) Pathologist [facility] Sickle Cell Screen Positive(A ) Negative 09/03/2020 2:52 PM CDT [facility] Blood BLOOD SPECIMEN / Unknown Venipuncture / Unknown 09/03/2020 1:56 PM CDT 09/03/2020 2:00 PM CDT [facility] - 09/03/2020 2:52 PM CDT Disclaimer: ??This is a screening test only. ??Recommend ordering Hemoglobin Electrophoresis test for the confirmation of Sickle Cell Disease. Oliver Haskins MD LAB - HEMATOLOGY O RDERABLES [facility] [address] [place] [address], [facility] [phone] * (ABNORMAL) CBC W AUTO DIFFERENTIAL (09/03/2020 1:56 PM CDT) WBC 7.3 3.5 - 10.5 10? 3 /uL 09/03/2020 2:06 PM [facility] RBC 4.28 3.80 - 5.20 10? 6 /uL 09/03/2020 2:06 PM [facility] Hemoglobin 11.2(L) 12.0 - 15.6 g/dL 09/03/2020 2:06 PM [facility] Hematocrit 34.9(L) 35.0 - 45.0 % 09/03/2020 2:06 PM [facility] MCV 81.5 80.7 - 98.3 fL 09/03/2020 2:06 PM [facility] MCH 26.2(L) 26.7 - 34.0 pg 09/03/2020 2:06 PM [facility] MCHC 32.1 30.8 - 35.9 g/dL 09/03/2020 2:06 PM [facility] Platelet Count 331 150 - 400 10? 3 /uL 09/03/2020 2:06 PM [facility] RDW-SD 39.8 36.0 - 50.0 fL 09/03/2020 2:06 PM [facility] RDW-CV 13.3 11.2 - 14.8 % 09/03/2020 2:06 PM [facility] MPV 10.3 9.4 - 12.9 fL 09/03/2020 2:06 PM [facility] nRBC Absolute 0.00 0 10? 3 /uL 09/03/2020 2:06 PM [facility] nRBC Auto 0.0 0 /100 WBC 09/03/2020 2:06 PM [facility] Neutrophils % 82.0(H) 35.0 - 70.0 % 09/03/2020 2:06 PM [facility] Lymphocytes % 14.0(L) 20.0 - 43.0 % 09/03/2020 2:06 PM [facility] Monocytes % 3.3(L) 5.0 - 13.0 % 09/03/2020 2:06 PM [facility] Eosinophils % 0.1 0.0 - 6.0 % 09/03/2020 2:06 PM [facility] Basophil % 0.3 0.0 - 2.0 % 09/03/2020 2:06 PM [facility] Neutrophils Absolute 6.0 1.6 - 7.0 10? 3 /uL 09/03/2020 2:06 PM [facility] Lymphocyte Absolute 1.0(L) 1.1 - 3.9 10? 3 /uL 09/03/2020 2:06 PM [facility] Monocytes Absolute 0.24(L) 0.26 - 1.07 10? 3 /uL 09/03/2020 2:06 PM [facility] Eosinophils Absolute 0.01 0.00 - 0.47 10? 3 /uL 09/03/2020 2:06 PM [facility] Basophils Absolute 0.02 0.00 - 0.08 10? 3 /uL 09/03/2020 2:06 PM [facility] Immature Granulocytes % 0.3 0.0 - 1.0 % 09/03/2020 2:06 PM [facility] Immature Granulocytes Absolute 0.02 09/03/2020 2:06 PM [facility] Blood BLOOD SPECIMEN / Unknown Venipuncture / Unknown 09/03/2020 1:56 PM CDT 09/03/2020 2:00 PM T Oliver Haskins MD LAB - HEMATOLOGY O RDERABLES [facility] [address] [place] [address], [facility] [phone] * (ABNORMAL) COMPREHENSIVE METABOLIC PANEL (09/03/2020 1:56 PM [facility]) BUN 8 7 - 26 mg/dL 09/03/2020 2:38 PM [facility] Creatinine 0.59 0.56 - 0.96 mg/dL 09/03/2020 2:38 PM [facility] Sodium 142 136 - 145 mmol/L 09/03/2020 2:38 PM [facility] Potassium 3.7 3.5 - 4.5 mmol/L 09/03/2020 2:38 PM [facility] Chloride 107 98 - 107 mmol/L 09/03/2020 2:38 PM [facility] CO2 25 22 - 29 mmol/L 09/03/2020 2:38 PM [facility] Glucose 119(H) 70 - 115 mg/dL 09/03/2020 2:38 PM [facility] Calcium 8.9 8.4 - 10.2 mg/dL 09/03/2020 2:38 PM [facility] Protein Total 7.5 6.0 - 8.3 g/dL 09/03/2020 2:38 PM [facility] Albumin 4.0 3.4 - 5.0 g/dL 09/03/2020 2:38 PM [facility] Bilirubin Total 0.5 0.2 - 1.2 mg/dL 09/03/2020 2:38 PM [facility] Alkaline Phosphatase 82 40 - 150 U/L 09/03/2020 2:38 PM [facility] ALT 30 5 - 55 U/L 09/03/2020 2:38 PM [facility] AST 32 5 - 34 U/L 09/03/2020 2:38 PM [facility] Anion Gap 14 8 - 18 09/03/2020 2:38 PM [facility] BUN/Creatinine Ratio 14 7 - 23 09/03/2020 2:38 PM [facility] Osmolality Calculated 293 270 - 300 mOsm/kg 09/03/2020 2:38 PM CDT [facility] Albumin/Globulin Ratio 1.1 1.1 - 2.3 09/03/2020 2:38 PM CDT [facility] eGFR by CKD-EPI >90 >=90 mL/min/1.7 3 m2 09/03/2020 2:38 PM CDT [facility] Blood BLOOD SPECIMEN / Unknown Venipuncture / Unknown 09/03/2020 1:56 PM CDT 09/03/2020 2:01 PM CDT Oliver Haskins MD LAB - CHEMISTRY OR DERABLES Performing Organization Address City/[facility]/ZIP Co de Phone Number [facility] [address] [place] [address], [facility] [phone] * EKG 12-LEAD (09/03/2020 1:48 PM CDT) Pathologist [facility] Ventricular Rate 95 BPM [facility] MUSE Atrial Rate 95 BPM [facility] MUSE P-R Interval 198 ms [facility] MUSE QRS Duration ms 72 ms [facility] MUSE Q-T Interval ms 366 ms [facility] MUSE QTC Calculation (Bezet) 459 ms [facility] MUSE Calculated P [place] 49 degrees [facility] MUSE Calculated R [place] 35 degrees [facility] MUSE Calculated T [place] 13 degrees [facility] MUSE Interpretation EKG NORMAL SINUS RHYTHM NORMAL ECG NO PREVIOUS ECGS AVAILABLE Confirmed by fellow Gurwinder Guerra ([id number]) on 09/04/2020 8:10:25 AM Confirmed by Samy Rueda ([id number]) on 09/04/2020 4:37:57 PM [facility] MUSE 09/03/2020 1:48 PM CDT 09/04/2020 4:37 PM CDT Oliver Haskins MD ECG ORDERABLES [facility] MUSE Care Teams Fish Grader Relationship Specialty Start Date End Date Juan Ace MD [address] [place] [phone] (work) PCP - General 04/12/19
--- OUTSIDE RECORDS SUMMARY | 2024-03-25 10:31 | XMS_ITS | Clinical Summary ---
Author Organization [facility] Address [address] [place] [address] Care Team Providers Care Cut In Station Operator Name Role Phone Juan Ace MD Primary Care Provider [phone] Source Comments [facility],non-owned Affiliates and Associated Physician Practices is amultiple site organization consisting of ambulatory clinics and hospital sitesin [place], [place], [place]. This disclosure is being madepursuant to the Care Everywhere program and may not contain all information available regarding this patient. Last updated 17.[facility] Allergies No known active allergies Medications * Be aware that medications may not be up to date on this document. Alwaysverify current medications with the patient. 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 Family History Medical History Relation Name Comments Hypertension Father CVA Maternal Grandfather Hypertension Maternal Grandmother Cancer - Other Sister Relation Name Status Comments Father Maternal Grandfather Maternal Grandmother Sister Social History Tobacco Use Types Packs/Day Years [...] Mass Index 25.12 10/29/2020 2:52 PM CDT Plan of Treatment Health Maintenance Due Date Last Done Comments COLOGUARD (AGES 45-75) - COLON CA SCREENING 1977 COLON MONITORING 1977 COLONOSCOPY - COLON CA SCREENING 1977 CT COLONOGRAPHY - COLON CA SCREENING 1977 Colorectal Cancer Screening 1977 FIT - COLON CA SCREENING 1977 FLEX SIG - COLON CA SCREENING 1977 LIPID TESTING 1977 MAMMOGRAM 1977 PAP SMEAR 1977 HIV SCREENING 1992 HEPATITIS C SCREENING 10/15/1995 DTAP/TDAP/TD VACCINES (1 - Tdap) 1996 HEPATITIS B VACCINE (1 of 3 - 19+ 3-dose series) 1996 SCREENING FOR DIABETES 09/11/2023 , 09/09/2020, 09/08/2020, Additional history exists COVID-19 VACCINE ( - 2023- season) 2023 INFLUENZA VACCINE (#1) 2023 DEPRESSION SCREENING 02/22/2024 ZOSTER VACCINE (1 of 2) 10/20/2027 HIB VACCINE Aged Out No longer eligi ble based on patient's age to complete this topic HPV VACCINE Aged Out No longer eligi ble based on patient's age to complete this topic MENINGOCOCCAL (Group B) VACCINE Aged Out No longer eligible based on patient's age to complete this topic MENINGOCOCCAL VACCINE Aged Out No abel olayinka eligible based on patient's age to complete this topic PNEUMOCOCCAL VACCINE Aged Out No long er eligible based on patient's age to complete this topic Procedures Procedure Name Priority Date/Time Associated Diagnosis Comments BASIC METABOLIC PANEL (CALCIUM TOTAL) Routine 09/10/2020 4:52 AM CDT from Last 3 Months or Most Recently Relevant to Health Maintenance Results * BASIC METABOLIC PANEL (CALCIUM TOTAL) (09/10/2020 4:52 AM CDT) BUN 13 7 - 26 mg/dL 09/10/2020 5:27 AM [facility] Creatinine 0.63 0.56 - 0.96 mg/dL 09/10/2020 5:27 AM [facility] Sodium 140 136 - 145 mmol/L 09/10/2020 5:27 AM [facility] Potassium 4.0 3.5 - 4.5 mmol/L 09/10/2020 5:27 AM [facility] Chloride 106 98 - 107 mmol/L 09/10/2020 5:27 AM [facility] CO2 28 22 - 29 mmol/L 09/10/2020 5:27 AM [facility] Glucose 109 70 - 115 mg/dL 09/10/2020 5:27 AM [facility] Calcium 8.8 8.4 - 10.2 mg/dL 09/10/2020 5:27 AM [facility] Anion Gap 10 8 - 18 09/10/2020 5:27 AM [facility] BUN/Creatinine Ratio 21 7 - 23 09/10/2020 5:27 AM [facility] Osmolality Calculated 291 270 - 300 mOsm/kg 09/10/2020 5:27 AM [facility] eGFR by CKD-EPI >90 >=90 mL/min/1.7 3 m2 09/10/2020 5:27 AM [facility] Blood BLOOD SPECIMEN / Unknown Venipuncture / Unknown 09/10/2020 4:52 AM CDT 09/10/2020 5:01 AM CDT Oliver Haskins MD LAB - CHEMISTRY OR DERABLES [facility] [address] [place] [address], [facility] [phone] from Last 3 Months or Most Recently Relevant to Health Maintenance Advance Directives * Full Code (Latest Code Status on File) Date Activated Date Inactivated Comments 09/03/2020 5:30 PM 09/10/2020 6:10 PM * Full Code Date Activated Date Inactivated Comments 09/03/2020 3:05 PM 09/03/2020 5:30 PM Care Teams Cut In Station Operator Relationship Specialty Start Date End Date Juan Ace MD [address] [place] [phone] PCP - General 04/12/19
--- OUTSIDE RECORDS SUMMARY | 2024-03-25 10:31 | XMS_ITS | Clinical Summary ---
Author Organization [facility] Care Team Providers Care Land Acquisition Manager Name Role Phone Unavailable Primary Care Provider Unavailabl e Social History Tobacco Use Types Packs/Day Years Used Date Smoking Tobacco: Never Assessed Comments Unknown Sex and Gender Information Value Date Recorded Sex Assigned at Not on file Legal Sex Female 10:17 AM CDT Gender Identity Not on file Sexual Orientation Not on file Plan of Treatment Health Maintenance Due Date Last Done Comments Hepatitis C Virus (HCV) Screening 1977 TdaP Immunization 1977 Hepatitis B Immunization (1 of 3 - 19+ 3-dose series) 1996 Pap Smear 1998 Cervical Cancer Screening (CCS) 10/20/2007 HPV/Cotest 10/20/2007 Discussion re Starting/Frequ ency of Mammograms 2017 Colonoscopy 2022 Colorectal Cancer Screening 2022 Influenza Immunization (#1) 2023 SARS-COV-2 Immunization ( season) 2023 Respiratory Syncytial Virus (RSV) Immunization (Adult) (1 - 1-dose 75+ series) 2052 Meningococcal Immunization (ACWY) Aged Out No longer eligible based on patient's age to complete this topic Pneumococcal Immunization Combined Aged Out No longer eligible based on patient's age to complete this topic Rotavirus Immunization Aged Out No lo nger eligible based on patient's age to complete this topic
--- OUTSIDE RECORDS SUMMARY | 2024-03-25 10:31 | XMS_ITS | Referral Summary ---
Author Organization [facility] Address [address] [place] [address] Care Team Providers Care Pinion Sorter Name Role Phone Juan Ace MD Primary Care Provider [phone] Source Comments [facility],non-owned Affiliates and Associated Physician Practices is amultiple site organization consisting of ambulatory clinics and hospital sitesin [place], [place], [place] and [place]. This disclosure is being madepursuant to the Care Everywhere program and may not contain all information available regarding this patient. Last updated 17.[facility] Allergies No known active allergies Medications * [...] Mass Index 25.12 10/29/2020 2:52 PM CDT Functional Status Functional Status Response Date of Assess ment Is person deaf or have serious hearing difficult y? No 09/03/2020 Is person blind or have serious difficulty seein g? No 09/03/2020 Does person have serious dif ficulty walking/climbing stairs? No 09/03/2020 Does person have difficulty dressing/bathing? No 09/03/2020 Does person have difficulty doing errands alone? No 09/03/2020 Cognitive Status Response Date of Assessm ent Does person have difficulty concentrating/remembering/making decisions? No 09/03/2020 Plan of Treatment Not on file Procedures Procedure Name Priority Date/Time Associated Diagnosis Comments BASIC METABOLIC PANEL (CALCIUM TOTAL) Routine 09/10/2020 4:52 AM CDT from Last 3 Months or Most Recently Relevant to Health Maintenance Results * BASIC METABOLIC PANEL (CALCIUM TOTAL) (09/10/2020 4:52 AM CDT) BUN 13 7 - 26 mg/dL 09/10/2020 5:27 AM CDT [facility] Creatinine 0.63 0.56 - 0.96 mg/dL 09/10/2020 5:27 AM CDT [facility] Sodium 140 136 - 145 mmol/L 09/10/2020 5:27 AM CDT [facility] Potassium 4.0 3.5 - 4.5 mmol/L 09/10/2020 5:27 AM CDT [facility] Chloride 106 98 - 107 mmol/L 09/10/2020 5:27 AM CDT [facility] CO2 28 22 - 29 mmol/L 09/10/2020 5:27 AM [facility] Glucose 109 70 - 115 mg/dL 09/10/2020 5:27 AM [facility] Calcium 8.8 8.4 - 10.2 mg/dL 09/10/2020 5:27 AM [facility] Anion Gap 10 8 - 18 09/10/2020 5:27 AM [facility] BUN/Creatinine Ratio 21 7 - 23 09/10/2020 5:27 AM [facility] Osmolality Calculated 291 270 - 300 mOsm/kg 09/10/2020 5:27 AM [facility] eGFR by CKD-EPI >90 >=90 mL/min/1.7 3 m2 09/10/2020 5:27 AM [facility] Blood BLOOD SPECIMEN / Unknown Venipuncture / Unknown 09/10/2020 4:52 AM T 09/10/2020 5:[address] [facility] Oliver Haskins MD LAB - CHEMISTRY OR DERABLES [facility] [address] [place] [address], [facility] [phone] from Last 3 Months or Most Recently Relevant to Health Maintenance Advance Directives * Full Code (Latest Code Status on File) Date Activated Date Inactivated Comments 09/03/2020 5:30 PM 09/10/2020 6:10 PM * Full Code Date Activated Date Inactivated Comments 09/03/2020 3:05 PM 09/03/2020 5:30 PM Care Teams Pinion Sorter Relationship Specialty Start Date End Date Juan Ace MD [address] [place] [phone] PCP - General 04/12/19
--- OUTSIDE RECORDS SUMMARY | 2024-03-25 10:31 | XMS_ITS | Clinical Summary ---
Author Organization [facility] Address [address] [place] [address]. [place], [place] [id number] [place] [id number] Care Team Providers Care Modeling Instructor Name Role Phone Juan Ace MD Primary Care Provider [phone] Allergies No known active allergies Social History Tobacco Use Types Packs/Day Years Used Date Smoking Tobacco: Never Smokeless Tobacco: Never Alcohol Use Standard Drinks/Week Comments Not Currently 0 (1 standard drink = 0.6 oz pur e alcohol) Comments No Sex and Gender Information Value Date Recorded Sex Assigned at Not on file Legal Sex Female 5:42 PM CDT Gender Identity Not on file Sexual Orientation Not on file Last Filed Vital Signs Vital Sign Reading Time Taken Comments Blood Pressure 145/94 09/03/2020 12:48 PM CDT Pulse 98 09/03/2020 12:48 PM CDT Temperature 36.3 ??C (97.4 ??F) 09/03/2020 8:22 AM CD T Respiratory Rate 18 09/03/2020 12:4 8 PM CDT Oxygen Saturation 100% 09/03/2020 12: 48 PM CDT Inhaled Oxygen Concentration - - Weight 77.9 kg (171 lb 11.8 oz) 021 11:50 AM CDT Height 170.2 cm (5' 7 ) 09/03/2020 8:24 AM CDT Body Mass Index 26.9 09/03/2020 8:24 AM CDT Plan of Treatment Health Maintenance Due Date Last Done Comments Cervical Cancer Screening Pa p Smear (Age 30 to 64) Every 3 Years 1977 Colorectal Cancer Screening Colonoscopy (10 Years) 1977 Annual Physical 1980 Hepatitis C 10/20/1995 DTaP, Tdap and Td Vaccines ( 1 - Tdap) 1996 Hepatitis B Vaccines (1 of 3 - 19+ 3-dose series) 1996 Cervical Cancer Screening Pa p with HPV Testing (Age 30 to 64) Every 5 Years 10/20/2007 Cervical Cancer Screening wi th HPV 10/20/2007 Mammogram Screening 2017 COVID-19 Vaccine (3 - 2023-2 5 season) 2023 05/30/2020, 05/02/2020 Influenza Adult (#1) 2023 Meningococcal B Vaccine Aged Out No l onger eligible based on patient's age to complete this topic Meningococcal Vaccine Aged Out No abel olayinka eligible based on patient's age to complete this topic Pneumococcal Vaccine: Pediatrics (0 to 5 Years) and At-Risk Patients (6 to 64 Years) Aged Out No longer eligible b ased on patient's age to complete this topic RSV Immunizations Under 20 Months Aged Out No longer eligible b ased on patient's age to complete this topic Insurance Care Teams Modeling Instructor Relationship Specialty Start Date End Date Juan Ace MD PCP - General FAMILY PRACTICE 09/03/20
--- OUTSIDE RECORDS SUMMARY | 2024-03-25 10:31 | XMS_ITS | Data Portability ---
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 Plan of Treatment Reminders Order Date Submit Date Provider Last Modified By Organization Details Last Modified Time Details Appointments None recorded. Lab urinalysis , complete 2022 023 [facility], [address] [place] [address], [facility] [address], [place], [address], 4 12:40:55 HbA1c (hemoglobi n A1c), blood 2022 023 [email or web address] 3 In-Office Order, Internal Use Only DO Not Attach Compendium DO Not Attach Compendium, Do Not Delete/merge, [id number] 3 17:43:23 TSH, ultra-sens itive, serum 2023 024 [place] [facility], [address] [place] [address], [address], [place], [address], 4 08:28:41 HbA1c (hemoglobi n A1c), blood 2023 024 [facility], [address] [place] [address], [address], [place], [address], 4 08:28:43 vitamin D, 25-hydroxy , total, serum 2023 024 [facility], [address], [address], [place], [address], 4 08:28:47 CMP, serum or plasma 2023 024 [facility], [address], [address], [place], [address], 4 08:28:40 CBC w/ auto diff 2023 024 [facility], [address], [address], [place], [address], 4 08:28:46 lipid panel, serum 2023 024 [facility], [address], [address], [place], [address], 4 08:28:38 urinalysis macro (dipstick) panel, urine 2023 024 [facility], [address], [place], [address], 4 08:28:44 glucose, fingerstic k, blood 2024 025 [email or web address] 3 In-Office Order, Internal Use Only DO Not Attach Compendium DO Not Attach Compendium, Do Not Delete/merge, [id number] 5 12:07:07 Referral gastroente rologist referral 2023 024 KATRINA Langston MD, [address], [place], [address], 4 11:03:22 Procedures None recorded. Surgeries None recorded. Imaging unlisted imaging order 2022 023 [email or web address] 3 [facility]? [facility], [address], [place], [address], 4 13:22:35 US, abdomen 2023 024 [facility], [address], [place], [address], 5 14:50:57 MRI, cervical spine, w/o contrast 2024 025 [facility], [address], [address] [address], [place], [address], 5 17:00:41 Medication Orders dicyclomin e 10 mg capsule 2022 023 [facility], [address], [place], [place], [id number], 3 15:26:11 metronidaz ole 500 mg tablet 2023 024 [facility] #77877, [address], [place], [place], [id number], 4 12:52:08 fluconazol e 150 mg tablet 2023 024 [facility] #58771, [address], [place], [place], [id number], 4 12:52:07 pantoprazo le 40 mg tablet,del ayed release 2023 024 [facility] #59717, [address], [place], [place], [id number], 4 12:50:58 metformin ER 500 mg tablet,ext ended release 24 hr 2023 024 [email or web address] 3 [facility] #68463, [address], [place], [place], [id number], 4 16:14:57 Medrol (Wesley) 4 mg tablets in a dose pack 2024 025 [facility] #35485, [address], [place], [id number], 5 15:32:26 Jardiance 10 mg tablet 2024 025 [facility] #35211, [address], [place], [place], [id number], 5 12:08:45 Patient Targets Encounter Date Encounter Id Patient Goals Patient Target Last Modified By Organization Details Last Modified Time Our goal is to get rid of the Diabetes. [email or web address] Not available 01/17/2024 16:23:18 Patient Instructions Encounter Date Encounter Id Patient Instructions Last Modified By Organization Details Last Modified Time 01/28/2023 [id number] abdominal pain: care instructions [email or web address] Not available 01/28/2023 15:25:54 A healthy lifest yle: care instructions [email or web address] Not available 01/29/2023 17:43:23 Take your medications as directed. If you have any problems with them, let us know. Keep adequate fluid intake. Winter is on it's way. The cold temperatures will make your arthritis hurt more. Decrease red meat. Increase vegetables & fruits. Please add exercise if you can. Get a little sunlight daily even if it's in your house. Vitamin D Deficiency is caused by our lack of sunlight and not a poor diet issue. Let the shades up and let the sun shine in on you. It will help. Use the 5 S[facility] To Good Health. [email or web address] Not available 01/29/2023 17:09:26 Lets try the dicyclomine first. If no improvement, we may need to treat for Diverticulitis. The ultrasound will let us know if you have gallbladder stones. Follow up in 2 weeks. [email or web address] Not available 01/29/2023 17:12:03 01/10/2024 [id number] learning about h igh blood sugar [email or web address] Not available 01/10/2024 12:50:45 abdominal pain: care instructions [email or web address] Not available 01/10/2024 12:50:46 bacterial vagino sis: care instructions [email or web address] Not available 01/10/2024 12:52:04 learning about h igh blood pressure [email or web address] Not available 01/10/2024 12:50:45 gastroesophageal reflux disease (GERD): care instructions [email or web address] Not available 01/10/2024 12:50:45 Please take all medications as directed. Report any problems with them to us. Keep adequate fluid intake. Fall is here with it's cooler temperatures and allergies. Changes in weather can cause an increased chance of illness. The cooler temperatures can also result in more pain. Try to keep the body temperature constant. Decrease red meat. (Pork & beef). Increase vegetables & fruits. Use the 5 Sausal, they address all the issues. Follow up in 1 MO. [email or web address] Not available 01/10/2024 16:15:11 We discuss the education of the problems, the possible causes of these problems and possible treatments that we can offer. The side effects of the new medications prescribed are discussed. Support and counseling given. Our primary goal, is to help you. Let's work together to get a better outcome. I discussed the 5 [employer] to Good Health. [email or web address] Not available 01/10/2024 16:15:36 01/17/2024 [id number] learning about h igh blood pressure [email or web address] Not available 01/17/2024 16:22:52 Take your medications as directed. Keep up the exercise. Keep adequate fluid intake. Fall is upon us. Try to keep your body temperature even. Decrease red meat. Increase vegetables & fruits. Add exercise. Take one day at a time. Follow up in 1 month. [email or web address] Not available 01/17/2024 16:25:09 Take your medications as directed. Keep adequate fluid intake. Decrease red meat. This is pork and beef. Increase vegetables & fruits. Stay away from sugary snacks. Eat more often, but less food. Exercise is so important. [email or web address] Not available 01/17/2024 16:24:58 03/05/2024 [id number] learning about h igh blood pressure [email or web address] Not available 03/05/2024 15:31:54 Be very careful. Do gentle stretching for your neck. Take the medications as directed. Report any problems with them to us. Don't just stop taking them. Winter is here. Changes in weather can cause an increased chance of illness. The cooler temperatures can also result in more pain and stiffness. Try to keep the body temperature constant. Decrease red meat. (Pork & beef). Increase vegetables & fruits. Use the 5 Sausal, they address all the issues. Follow up in 1 month. [email or web address] Not available 03/06/2024 00:22:28 We discuss the t he problems, the possible causes of these problems and possible treatments that we can offer. The possible side effects of the medications prescribed are discussed. Support and counseling given. Our primary goal, is to help you. Let's work together to get a better outcome. We can do it together. I discussed the 5 [employer] to Good Health. [email or web address] Not available 03/06/2024 00:22:46 03/19/2024 [id number] neck pain: care instructions [email or web address] Not available 03/19/2024 12:07:07 learning about h igh blood pressure [email or web address] Not available 03/19/2024 12:07:07 Try gentle stretching of your neck now. I probably was the shoveling of the snow that did it. Take your medications as directed. Keep adequate fluid intake. Keep warm this Winter. . Do not allow your body to get cold. Decrease red meat. Increase vegetables & fruits. Please add exercise if you can. Get a little sunlight daily even if it's in your house. Please do not take any herbs unless you discuss it with me. Follow up in 1 month. [email or web address] Not available 03/19/2024 22:05:55 The MRI will tel l us where you are with the stenosis. It is awful what is happening in healthcare. Every Black person is considered a drug abuser. This is what we face. 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 Referral for Gastroesophageal reflux disease Referring Physician: Juan Ace, Family Medicine, Encounter Date: 01/10/2024 Results Created Date Observation Date Name Description Value Unit Range Abnormal Flag Note LastModifiedBy Organization Detail LastModifiedTime 01/29/20 23 01/28/2023 HbA1c (hemo globi n A1c), blood HbA1c 6.5 Not Available In-Office Order Internal Use Only DO Not Attach Compendium DO Not Attach Compendium, Do Not Delete/merge, [id number] 01/28/2023 16:44:54 01/10/20 24 01/11/2024 LIPID PANEL cholesterol, total 206 mg/dL 100-19 9 above high normal Not Available [facility] ([facility]) [address] [place], [address], 01/11/2024 08:28:38 01/10/20 24 01/11/2024 LIPID PANEL triglyceride s 49 mg/dL 0-149 Not Available [facility] [address] [place], [address], 01/11/2024 08:28:38 01/10/20 24 01/11/2024 LIPID PANEL HDL cholesterol 80 mg/dL >39 Not Available [facility] [address] [place], [address], 01/11/2024 08:28:38 01/10/20 24 01/11/2024 LIPID PANEL VLDL cholesterol stephan 9 mg/dL 5-40 Not Available [facility]) [address] [place], [address], 01/11/2024 08:28:38 01/10/20 24 01/11/2024 LIPID PANEL LDL chol calc ([facility]) 117 mg/dL 0-99 above high normal Not Available [facility] ([facility]) [address] [place], [address], 01/11/2024 08:28:38 01/10/20 24 01/11/2024 COMP. METAB OLIC PANEL (14) glucose 114 mg/dL 70-99 above high normal Not Available [facility] ([facility]) [address] [place], [address], 01/11/2024 08:28:39 01/10/20 24 01/11/2024 COMP. METAB OLIC PANEL (14) BUN 13 mg/dL 6-24 Not Available [facility] ([facility]) [address] [place], [address], 01/11/2024 08:28:39 01/10/20 24 01/11/2024 COMP. METAB OLIC PANEL (14) creatinine 0.72 mg/dL 0.57-1 .00 Not Available [facility] ([facility]) [address] [place], [address], 01/11/2024 08:28:39 01/10/20 24 01/11/2024 COMP. METAB OLIC PANEL (14) eGFR 104 mL/mi n/1.7 3 >59 Not Available [facility] ([facility]) [address] [facility] [place], [address], 01/11/2024 08:28:39 01/10/20 24 01/11/2024 COMP. METAB OLIC PANEL (14) BUN/creatini ne ratio 18 9-23 Not Available [facility] [address] [facility] [place], [address], 01/11/2024 08:28:39 01/10/20 24 01/11/2024 COMP. METAB OLIC PANEL (14) sodium 141 mmol/ L 134-14 4 Not Available [facility] ([facility] [address] [facility] [place], [address], 01/11/2024 08:28:39 01/10/20 24 01/11/2024 COMP. METAB OLIC PANEL (14) potassium 3.9 mmol/ L 3.5-5. 2 Not Available [facility] ([facility] [address] [facility] [place], [address], 01/11/2024 08:28:39 01/10/20 24 01/11/2024 COMP. METAB OLIC PANEL (14) chloride 105 mmol/ L 96-106 Not Available [facility] ([facility]) [address] [place], [address], 01/11/2024 08:28:39 01/10/20 24 01/11/2024 COMP. METAB OLIC PANEL (14) carbon dioxide, total 23 mmol/ L 20-29 Not Available [facility] ([facility] [address] [place], [address], 01/11/2024 08:28:39 01/10/20 24 01/11/2024 COMP. METAB OLIC PANEL (14) calcium 9.1 mg/dL 8.7-10 .2 Not Available [facility] ([facility] [address] [place], [address], 01/11/2024 08:28:39 01/10/20 24 01/11/2024 COMP. METAB OLIC PANEL (14) protein, total 7.2 g/dL 6.0-8. 5 Not Available [facility] ([facility] [address] [place], [address], 01/11/2024 08:28:39 01/10/20 24 01/11/2024 COMP. METAB OLIC PANEL (14) albumin 4.3 g/dL 3.9-4. 9 Not Available [facility] ([facility]) [address] [place], [address], 01/11/2024 08:28:39 01/10/20 24 01/11/2024 COMP. METAB OLIC PANEL (14) globulin, total 2.9 g/dL 1.5-4. 5 Not Available [facility] ([facility] [address] [place], [address], 01/11/2024 08:28:39 01/10/20 24 01/11/2024 COMP. METAB OLIC PANEL (14) bilirubin, total 0.4 mg/dL 0.0-1. 2 Not Available [facility] ([facility] [address] [facility], [place], [address], 01/11/2024 08:28:39 01/10/20 24 01/11/2024 COMP. METAB OLIC PANEL (14) alkaline phosphatase 69 IU/L 44-121 Not Available [facility] [address] [facility], [place], [address], 01/11/2024 08:28:39 01/10/20 24 01/11/2024 COMP. METAB OLIC PANEL (14) AST (SGOT) 17 IU/L 0-40 Not Available [facility] ([facility] [address] [facility], [place], [address], 01/11/2024 08:28:39 01/10/20 24 01/11/2024 COMP. METAB OLIC PANEL (14) ALT (SGPT) 14 IU/L 0-32 Not Available [facility] ([facility] [address] [facility], [place], [address], 01/11/2024 08:28:39 01/10/20 24 01/11/2024 TSH RFX ON ABNOR MAL TO FREE T4 TSH 0.931 uIU/m L 0.450- 4.500 Not Available [facility] ([facility]) [address] [place], [address], 01/11/2024 08:28:41 01/10/20 24 01/11/2024 HEMOG LOBIN A1C hemoglobin A1C 7.1 % 4.8-5. 6 above high normal Predi abete s: 5.7 - 6.4 Diabe maggi: >6.4 Glyce camila contr ol for adult s with diabe maggi: <7.0 Not Available [facility] ([facility]) [address] [facility], [place], [address], 01/11/2024 08:28:43 01/10/20 24 01/11/2024 URINA LYSIS , ROUTI NE specific gravity 1.015 1.005- 1.030 Not Available [facility] ([facility]) [address] [facility], [place], [address], 01/11/2024 08:28:44 01/10/20 24 01/11/2024 URINA LYSIS , ROUTI NE pH 6.5 5.0-7. 5 Not Available [facility] ([facility] [address] [facility], [place], [address], 01/11/2024 08:28:44 01/10/2001/11/2024 URINA LYSIS , ROUTI NE urine-color YELLOW yellow Not Available [facility] [address] [facility], [place], [address], 01/11/2024 08:28:44 01/10/2001/11/2024 URINA LYSIS , ROUTI NE appearance CLEAR clear Not Available [facility] ([facility] [address] [facility], [place], [address], 01/11/2024 08:28:44 01/10/20 24 01/11/2024 URINA LYSIS , ROUTI NE WBC esterase NEGATI VE negati ve Not Available [facility] ([facility]) [address] [facility], [place], [address], 01/11/2024 08:28:44 01/10/20 24 01/11/2024 URINA LYSIS , ROUTI NE protein TRACE negati ve/tra ce Not Available [facility] ([facility] [address] [place], [address], 01/11/2024 08:28:44 01/10/20 24 01/11/2024 URINA LYSIS , ROUTI NE glucose NEGATI VE negati ve Not Available [facility] ([facility] [address] [place], [address], 01/11/2024 08:28:44 01/10/20 24 01/11/2024 URINA LYSIS , ROUTI NE ketones NEGATI VE negati ve Not Available [facility] ([facility] [address] [place], [address], 01/11/2024 08:28:44 01/10/20 24 01/11/2024 URINA LYSIS , ROUTI NE occult blood NEGATI VE negati ve Not Available [facility] ([facility] [address] [place], [address], 01/11/2024 08:28:44 01/10/20 24 01/11/2024 URINA LYSIS , ROUTI NE bilirubin NEGATI VE negati ve Not Available [facility] ([facility] [address] [place], [address], 01/11/2024 08:28:44 01/10/20 24 01/11/2024 URINA LYSIS , ROUTI NE urobilinogen ,semi-qn 0.2 mg/dL 0.2-1. 0 Not Available [facility] ([facility]) [address] [place], [address], 01/11/2024 08:28:44 01/10/20 24 01/11/2024 URINA LYSIS , ROUTI NE nitrite, urine NEGATI VE negati ve Not Available [facility] ([facility]) [address] [place], [address], 01/11/2024 08:28:44 01/10/20 24 01/11/2024 URINA LYSIS , ROUTI NE microscopic examination COMMEN T Micro scopi c not indic ated and not perfo rmed. Not Available [facility] ([facility]) [address] [place], [address], 01/11/2024 08:28:44 01/10/20 24 01/11/2024 CBC WITH DIFFE RENTI AL/PL ATELE T WBC 4.7 x10e3 /uL 3.4-10 .8 Eff ectiv e Decem gabby 2023 profi katelyn [id number] 5 WBC will be made* * non-o rdera ble as a stand -santa e order code. Not Available [facility] ([facility]) [address] [facility], [place], [address], 01/11/2024 08:28:46 01/10/20 24 01/11/2024 CBC WITH DIFFE RENTI AL/PL ATELE T RBC 4.29 x10e6 /uL 3.77-5 .28 Not Available [facility]) [address] [place], [address], 01/11/2024 08:28:46 01/10/20 24 01/11/2024 CBC WITH DIFFE RENTI AL/PL ATELE T hemoglobin 11.8 g/dL 11.1-1 5.9 Not Available [facility] ([facility]) [address] [place], [address], 01/11/2024 08:28:46 01/10/20 24 01/11/2024 CBC WITH DIFFE RENTI AL/PL ATELE T hematocrit 36.5 % 34.0-4 6.6 Not Available [facility] ([facility]) [address] [place], [address], 01/11/2024 08:28:46 01/10/20 24 01/11/2024 CBC WITH DIFFE RENTI AL/PL ATELE T MCV 85 fL 79-97 Not Available [facility] ([facility]) [address] [place], [address], 01/11/2024 08:28:46 01/10/20 24 01/11/2024 CBC WITH DIFFE RENTI AL/PL ATELE T MCH 27.5 pg 26.6-3 3.0 Not Available [facility] ([facility]) [address] [place], [address], 01/11/2024 08:28:46 01/10/20 24 01/11/2024 CBC WITH DIFFE RENTI AL/PL ATELE T MCHC 32.3 g/dL 31.5-3 5.7 Not Available [facility]) [address] [facility], [place], [address], 01/11/2024 08:28:46 01/10/20 24 01/11/2024 CBC WITH DIFFE RENTI AL/PL ATELE T RDW 12.1 % 11.7-1 5.4 Not Available [facility] ([facility]) [address] [facility], [place], [address], 01/11/2024 08:28:46 01/10/20 24 01/11/2024 CBC WITH DIFFE RENTI AL/PL ATELE T platelets 284 x10e3 /uL 150-45 0 Not Available [facility] ([facility]) [address] [facility], [place], [address], 01/11/2024 08:28:46 01/10/20 24 01/11/2024 CBC WITH DIFFE RENTI AL/PL ATELE T neutrophils 46 % notest ab. Not Available [facility] ([facility]) [address] [facility], [place], [address], 01/11/2024 08:28:46 01/10/20 24 01/11/2024 CBC WITH DIFFE RENTI AL/PL ATELE T lymphs 45 % notest ab. Not Available [facility] [address] [facility], [place], [address], 01/11/2024 08:28:46 01/10/20 24 01/11/2024 CBC WITH DIFFE RENTI AL/PL ATELE T monocytes 6 % notest ab. Not Available [facility] [address] [facility], [place], [address], 01/11/2024 08:28:46 01/10/20 24 01/11/2024 CBC WITH DIFFE RENTI AL/PL ATELE T eos 3 % notest ab. Not Available [facility] ([facility]) [address] [place], [address], 01/11/2024 08:28:46 01/10/20 24 01/11/2024 CBC WITH DIFFE RENTI AL/PL ATELE T basos 0 % notest ab. Not Available [facility] ([facility]) [address] [place], [address], 01/11/2024 08:28:46 01/10/20 24 01/11/2024 CBC WITH DIFFE RENTI AL/PL ATELE T neutrophils (absolute) 2.1 x10e3 /uL 1.4-7. 0 Not Available [facility] ([facility]) [address] [place], [address], 01/11/2024 08:28:46 01/10/20 24 01/11/2024 CBC WITH DIFFE RENTI AL/PL ATELE T lymphs (absolute) 2.1 x10e3 /uL 0.7-3. 1 Not Available [facility] ([facility]) [address] [place], [address], 01/11/2024 08:28:46 01/10/20 24 01/11/2024 CBC WITH DIFFE RENTI AL/PL ATELE T monocytes(ab solute) 0.3 x10e3 /uL 0.1-0. 9 Not Available [facility] ([facility]) [address] [place], [address], 01/11/2024 08:28:46 01/10/20 24 01/11/2024 CBC WITH DIFFE RENTI AL/PL ATELE T eos (absolute) 0.2 x10e3 /uL 0.0-0. 4 Not Available [facility] ([facility] [address] [place], [address], 01/11/2024 08:28:46 01/10/20 24 01/11/2024 CBC WITH DIFFE RENTI AL/PL ATELE T baso (absolute) 0.0 x10e3 /uL 0.0-0. 2 Not Available [facility] ([facility]) [address] [facility], [place], [address], 01/11/2024 08:28:46 01/10/20 24 01/11/2024 CBC WITH DIFFE RENTI AL/PL ATELE T immature granulocytes 0 % notest ab. Not Available [facility] ([facility]) [address] [facility], [place], [address], 01/11/2024 08:28:46 01/10/20 24 01/11/2024 CBC WITH DIFFE RENTI AL/PL ATELE T immature grans (abs) 0.0 x10e3 /uL 0.0-0. 1 Not Available [facility] ([facility]) [address] [facility], [place], [address], 01/11/2024 08:28:46 01/10/20 24 01/11/2024 VITAM IN D, 25-HY DROXY vitamin D, 25-hydroxy 15.3 NG/mL 30.0-1 00.0 below low normal Vitam in D defic iency has been defin ed by the Insti tute of Medic ine and an Endoc rine Socie ty pract ice guide line as a level of serum 25-OH vitam in D less than 20 ng/mL (1,2) . The Endoc rine Socie ty went on to furth er defin e vitam in D insuf ficie ncy as a level betwe en 21 and 29 ng/mL (2). 1. IOM (Inst itute of Medic ine). 2010. Dieta ry refer ence intak es for calci um and D. Tree sam [place]: The Natio nal Acade [facility] Press . 2. José Miguel sherman MF, Binruddy ey [place], Rafaela off-F errar i RENE, et al. Evalu ation , treat ment, and preve ntion of vitam in D defic iency : an Endoc rine Socie ty clini stephan pract ice guide line. JCEM. 2010; 96(7) :1911 -30. Not Available [facility] ([facility]) [address], [place], [address], 01/11/2024 08:28:47 03/19/19 25 03/19/2024 gluco se, finge rstic k, blood Blood Glucose: mg/dl 113 Not Available In-Off ice Order Internal Use Only DO Not Attach Compendium DO Not Attach Compendium, Do Not Delete/merge, [id number] 03/19/2024 10:58:05 03/08/19 24 03/08/2023 US, abdom en No observ ation record ed. [address] [facility] [address] [place], [address], 03/12/2023 15:22:59 03/09/19 24 03/09/2023 US, pelvi s, compl ete No observ ation record ed. [address], [place], [address], 03/12/2023 15:41:10 03/22/19 24 03/22/2023 MAMMO , scree rgay, tomos ynthe sis, bilat eral No observ ation record ed. [facility] [address] [place], [address], 03/23/2023 17:07:10 Result Notes None recorded. Problems Name Problem SNOMED Code Status Onset Date Resolution Date Notes Provider Name and Address Organization Details Recorded Time Hyperlipide noé 56525458 Active Charles preciado MD Attn: Chelita oshea,[address] [place], [address], [facility] 6 13:53:03 Cervical radiculopat hy 21192694 Active 2020 Juan Ace MD Attn: Chelita oshea,[address] [place], [address], [place] [facility] 1 00:02:26 Subarachnoi d hemorrhage 89134761 Active 2020 Juan Ace MD Attn: Chelita oshea,[address] [facility], [place], [address], [place] [facility] 1 00:38:35 Essential hypertensio n 23123014 Active 2023 Juan Ace MD Attn: Chelita oshea,[address] [facility], [place], [address], [place] [facility] 4 12:48:39 Gastroesoph ageal reflux disease 733630193 Active 2023 Juan Ace MD Attn: Chelita oshea,[address] [facility], [place], [address], [place] [facility] 4 12:48:41 Diabetes mellitus 86861203 Active 2023 Juan Ace MD Attn: Chelita oshea,[address] [facility], [place], [address], [place] [facility] 4 11:55:13 Hypercholes terolemia 42051226 Active 2023 Juan Ace MD Attn: Chelita oshea,[address] [facility], [place], [address], [place] [facility] 4 16:22:30 Umbilical hernia 018699094 Active Charles Aditya preciado MD Attn: Chelita oshea,[address] [facility], [place], [address], [place] [facility] 6 13:53:03 Abdominal pain 35176686 Active Charles Aditya preciado MD Attn: Chelita oshea,[address] [place], [address], [place] [facility] 6 13:53:03 Chronic constipatio n 671496602 Active ibs Charles preciado MD Attn: Chelita oshea,[address] [place], [address], [facility] - [facility] 9 13:42:43 Swollen abdomen 82186931 Active Charles preciado MD Attn: Chelita oshea,[address] [facility], [place], [address], [facility] - [facility] 6 13:53:03 Candidiasis of vagina 65359594 Active Charles preciado MD Attn: Chelita oshea,[address] [facility], [place], [address], [facility] - [facility] 6 13:53:03 Migraine 48542284 Active Douglas Ontiveros PA-C Attn: Chelita oshea,[address] [facility], [place], [address], [facility] - [facility] 6 18:45:04 Acute sinusitis 13406185 Completed 07/19/2018 Charles preciado MD Attn: Chelita oshea,[address] [facility], [place], [address], [facility] - [facility] 9 13:42:32 Problem Notes None recorded. Procedures Surgical History Date Name Laterality Status Provider Name and Address Organization Details Recorded Time 6 Hernia Repair completed Rosalinda Sapp MA [facility] 01/31/2015 17:33:14 6 Caesarean Section completed Razia Kline [place] - [facility] 01/11/2014 17:16:48 Imaging Results Imaging Date Name Status LastModified by Organiz [facility] Details LastModified Time 03/08/2023 US, abdomen active [email or web address] [address] [place], [address], 03/12/2023 15:22:59 03/09/2023 US, pelvis, complete active [id number] [place] [address] [address] [place], [address], 03/12/2023 15:41:10 03/22/2023 MAMMO, screening, tomosynthesis, bilateral completed [facility] [address] [facility] [place], [address], 03/23/2023 17:07:10 Procedure Notes None recorded. Medical Equipment None Reported. Allergies No known drug allergies Medications Name Sig Start Date Stop Date Status Note LastModified by Organization Details LastModified Time cyclobenzap rine 10 mg tablet TAKE 1 TABLET BY MOUTH THREE TIMES DAILY NEEDED FOR SPASM active Not Available Not Available No t Available amoxicillin 500 mg capsule 01/27 completed Not Available Not Available Not Available cetirizine 10 mg tablet TAKE 1 TABLET BY MOUTH EVERY DAY active Not Available Not Available No t Available Necon 35 (28) 1 mg-35 mcg tablet Take 1 tablet every day by oral route for 28 days. 08/16 completed Not Available Not Available Not Available ibuprofen 800 mg tablet Take 1 tablet 3 times a day by oral route for 30 days. 04/15 completed Not Available Not Available Not Available fluconazole 150 mg tablet Take 1 tablet every week by oral route for 1 day. active Not Available Not Available No t Available benzonatate 200 mg capsule TAKE 1 CAPSULE BY MOUTH THREE TIMES DAILY NEEDED 04/15 completed Not Available Not Available Not Available sumatriptan 100 mg tablet Take 1 tablet as needed by oral route for 10 days. 04/15 completed Not Available Not Available Not Available promethazin e 6.25 mg/5 mL oral syrup TAKE 10 ML BY MOUTH EVERY 6 HOURS NEEDED active Not Available Not Available No t Available fluconazole 200 mg tablet TAKE 1 TABLET BY MOUTH AT END OF ANTIBIOTI CS OR WHEN SYMPTOMS START AND 1 TABLET 72 HOURS LATER active Not Available Not Available No t Available metronidazo le 0.75 % (37.5 mg/5 gram) vaginal gel INSERT 5G VAGINALLY AT BEDTIME FOR 5 DAYS active Not Available Not Available No t Available famotidine 40 mg tablet TAKE 1 TABLET BY MOUTH EVERY DAY active Not Available Not Available No t Available Zithromax Z-Wesley 250 mg tablet TAKE 2 TABLETS (500 MG) BY ORAL ROUTE ONCE DAILY FOR 1 DAY THEN 1 TABLET (250 MG) BY ORAL ROUTE ONCE DAILY FOR 4 DAYS 04/15 completed Not Available Not Available Not Available sumatriptan 50 mg tablet Take one or two with onset RENE, max 2 tabs in 24 hours active Not Available Not Available No t Available metronidazo le 500 mg tablet Take 1 tablet twice a day by oral route for 14 days. active Not Available Not Available No t Available acetaminoph en 300 mg-codeine 30 mg tablet active Not Available Not Available Not Available ciprofloxac in 500 mg tablet Take 1 tablet every 12 hours by oral route for 10 days. 01/27 completed Not Available Not Available Not Available amoxicillin 500 mg tablet take 2 tabs PO x1 then 1 tab every 8 hours until gone 01/27 completed Not Available Not Available Not Available Depo-Medrol 80 mg/mL suspension for injection Take 80 mg by injection route. 04/15 completed Not Available Not Available Not Available meloxicam 7.5 mg tablet Take 1 tablet every day by oral route. 04/15 completed Not Available Not Available Not Available oxycodone-a cetaminophe n 5 mg-325 mg tablet active Not Available Not Available No t Available Microgestin FE /20 (28) 1 mg-20 mcg (21)/75 mg (7) tablet 08/16 completed Not Available Not Available Not Available DOK 100 mg capsule TK 1 C PO BID DIRECTED 04/15 completed Not Available Not Available Not Available benzonatate 100 mg capsule Take 1 capsule 3 times a day by oral route as needed. 08/16 completed Not Available Not Available Not Available cephalexin 500 mg capsule 04/15 completed Not Available Not Available Not Available pantoprazol e 40 mg tablet,amador yed release TAKE 1 TABLET BY MOUTH EVERY DAY active Not Available Not Available No t Available mupirocin calcium 2 % topical cream 01/27 completed Not Available Not Available Not Available omeprazole 20 mg capsule,del ayed release TAKE 1 CAPSULE BY MOUTH EVERY DAY active Not Available Not Available No t Available norethindro ne acetate 5 mg tablet active Not Available Not Available Not Available ergocalcife rol (vitamin D2) 1,250 mcg (50,000 unit) capsule TAKE 1 CAPSULE BY MOUTH EVERY WEEK. active Not Available Not Available No t Available polyethylen e glycol 3350 17 gram/dose oral powder TAKE 17GRAMS BY MOUTH DAILY active Not Available Not Available No t Available estradiol 0.01% (0.1 mg/gram) vaginal cream active Not Available Not Available Not Available methylpredn isolone 4 mg tablets in a dose pack FOLLOW PACKAGE DIRECTION S active Not Available Not Available No t Available albuterol sulfate HFA 90 mcg/actuati on aerosol inhaler Inhale 2 puffs every 4-6 hours by inhalatio n route. 04/15 completed Not Available Not Available Not Available norethindro ne (contracept david) 0.35 mg tablet TAKE 1 TABLET BY MOUTH EVERY DAY active Not Available Not Available No t Available metformin ER 500 mg tablet,exte nded release 24 hr Take 1 tablet every day by oral route. active Not Available Not Available No t Available dicyclomine 10 mg capsule TAKE 1 CAPSULE BY MOUTH THREE TIMES DAILY BEFORE MEALS active Not Available Not Available No t Available azithromyci n 500 mg tablet Take 1 tablet every day by oral route for 3 days. 04/15 completed Not Available Not Available Not Available Vitamin D3 25 mcg (1,000 unit) tablet Take 1 tablet every day by oral route. 04/15 completed Not Available Not Available Not Available cyclobenzap rine 5 mg tablet 04/15 completed Not Available Not Available Not Available June.07/20 (21) 1.5 mg-30 mcg tablet 04/15 completed Not Available Not Available Not Available nitrofurant oin monohydrate /macrocryst als 100 mg capsule TAKE 1 CAPSULE BY MOUTH EVERY 12 HOURS FOR 5 DAYS 04/15 completed Not Available Not Available Not Available Amitiza 24 mcg capsule Take 1 capsule twice a day by oral route. 2014 active Not Available Not Available Not Avai lable norethindro ne 1 mg-ethinyl estradiol 20 mcg (24)-iron 75 mg (4) tablet one po daily 08/16 completed Not Available Not Available Not Available Mucinex DM 60 mg-1,200 mg tablet,exte nded release 12 hr Take 1 tablet twice a day by oral route. 04/15 completed Not Available Not Available Not Available Virtussin AC 10 mg-100 mg/5 mL oral liquid Take 10 mL every 6 hours by oral route. 04/15 completed Not Available Not Available Not Available Jardiance 10 mg tablet TAKE 1 TABLET BY MOUTH EVERY DAY active Not Available Not Available No t Available Aurovela Fe 1.5/30 (28) 1.5 mg-30 mcg (21)/75 mg (7) tablet TAKE 1 TABLET BY MOUTH EVERY DAY 04/15 completed Not Available Not Available Not Available Vitals Date Recorded Body height Provider Name an d Address Organization Details Last Updated DateTime 01/28/2023 167.64 cm Sharon Staples MA [facility] 01/29/20 12:54:11 Date Recorded Body mass index (BMI) Body weight Provider Name and Address Organization Details Last Updated DateTime 01/28/2023 26.6 kg/m2 61553.74 g Sharon Staples MA [facility] 01/28/2023 12:54:31 Date Recorded Heart rate Provider Name an d Address Organization Details Last Updated DateTime 01/28/2023 101 /min Sharon Staples MA [facility] 01/29/20 12:54:39 Date Recorded Body temperature Provider Name a nd Address Organization Details Last Updated DateTime 01/28/2023 98.3 [degF] Sharon Staples MA [facility] 023 12:54:44 Date Recorded Body height Provider Name an d Address Organization Details Last Updated DateTime 01/10/2024 167.64 cm Sharon Staples MA [facility] 01/10/20 10:42:23 Date Recorded Heart rate Provider Name an d Address Organization Details Last Updated DateTime 01/10/2024 73 /min Sharon Staples MA [facility] 01/10/20 11:05:39 Date Recorded Respiratory rate Provider Name a nd Address Organization Details Last Updated DateTime 01/10/2024 18 /min Sharon Staples MA [facility] 01/10/20 11:05:53 Date Recorded Body mass index (BMI) Body weight Provider Name and Address Organization Details Last Updated DateTime 01/10/2024 26 kg/m2 82819.37 g Sharon Staples MA [facility] 01/10/2024 11:06:03 Date Recorded Body height Provider Name an d Address Organization Details Last Updated DateTime 01/17/2024 167.64 cm Sharon Staples MA [facility] 01/17/20 10:55:11 Date Recorded Body mass index (BMI) Body weight Provider Name and Address Organization Details Last Updated DateTime 01/17/2024 26 kg/m2 46955.37 dorie Sharon Staples MA [facility] 01/17/2024 10:55:15 Date Recorded Heart rate Provider Name an d Address Organization Details Last Updated DateTime 01/17/2024 80 /min Sharon Staples MA [facility] 01/17/20 24 10:55:23 Date Recorded Body height Provider Name an d Address Organization Details Last Updated DateTime 03/05/2024 167.64 cm Sharon Staples MA [facility] 03/05/19 13:50:18 Date Recorded Body mass index (BMI) Body weight Provider Name and Address Organization Details Last Updated DateTime 03/05/2024 25.8 kg/m2 07297.48 g Sharon Staples MA [facility] 03/05/2024 14:25:08 Date Recorded Heart rate Provider Name an d Address Organization Details Last Updated DateTime 03/05/2024 72 /min Sharon Staples MA [facility] 03/05/19 14:25:16 Date Recorded Body height Provider Name an d Address Organization Details Last Updated DateTime 03/19/2024 167.64 cm Sharon Staples MA [facility] 03/19/19 10:55:28 Date Recorded Body mass index (BMI) Body weight Provider Name and Address Organization Details Last Updated DateTime 03/19/2024 25.4 kg/m2 48829.4 dorie Sharon Staples MA [facility] 03/19/2024 10:56:00 Date Recorded Heart rate Provider Name an d Address Organization Details Last Updated DateTime 03/19/2024 81 /min Sharon Staples MA [facility] 03/19/19 25 10:56:11 Date Recorded Systolic blood pressure Diastolic blood pressure Provider Name and Address Organization Details Last Updated DateTime 01/28/2023 158 mm[Hg] 84 mm[Hg] Sharon Staples MA [facility] 01/28/2023 12:54:22 Date Recorded Systolic blood pressure Diastolic blood pressure Provider Name and Address Organization Details Last Updated DateTime 01/10/2024 157 mm[Hg] 93 mm[Hg] Sharon Staples MA [facility] 01/10/2024 11:05:01 Date Recorded Systolic blood pressure Diastolic blood pressure Provider Name and Address Organization Details Last Updated DateTime 01/10/2024 149 mm[Hg] 87 mm[Hg] Sharon Staples MA [facility] 01/10/2024 11:05:19 Date Recorded Systolic blood pressure Diastolic blood pressure Provider Name and Address Organization Details Last Updated DateTime 01/17/2024 145 mm[Hg] 90 mm[Hg] Sharon Staples MA [facility] 01/17/2024 10:55:05 Date Recorded Systolic blood pressure Diastolic blood pressure Provider Name and Address Organization Details Last Updated DateTime 03/05/2024 130 mm[Hg] 83 mm[Hg] Sharon Staples MA [facility] 03/05/2024 14:24:58 Date Recorded Systolic blood pressure Diastolic blood pressure Provider Name and Address Organization Details Last Updated DateTime 03/19/2024 135 mm[Hg] 88 mm[Hg] Sharon Staples MA [facility] 03/19/2024 10:55:52 Social History Question Answer Notes LastModified by Organizat ion Details LastModified Time Tobacco Smoking Status Never [facility] 01/11[facility]2014 17:16:48 What Is Your Level Of Alcohol Consumption? None Information not available 02/08/2022 What Is Your Level Of Caffeine Consumption? None Information not available 02/08/2022 What Was The Date Of Your Most Recent Tobacco Screening? 03/19/2024 Information not available 03/19/2024 Do You Feel Stressed (tense, Restless, Nervous, Or Anxious, Or Unable To Sleep At Night)? [id number] Information not available 02/08/2022 Do You Use Any Illicit Or Recreational Drugs? No Information not available 02/08/2022 Has Tobacco Cessation Counseling Been Provided? No Information not available 02/08/2022 Do You Or Have You Ever Used Any Other Forms Of Tobacco Or Nicotine? No Information not available 06/08/2022 Sex: Unknown Functional Status None recorded. Mental Status None recorded. Family History Nothing Reported Notes:Sister with thyroid ca ncer dx age 38 Medical History Condition Response Coronary Artery Disease N Other N High Blood Pressure N Atrial Fibrillation N Kidney or Bladder Problems N Thyroid Problems N GI Problems N Depression N COPD N Blood Clots N Skin Problems N Anemia N Heart Attack ([place]) N Anxiety Disorder N Diabetes N Muscle, Joint, or Bone Problems N Seizures/Epilepsy N Acid Reflux (GERD) N Cancer N Stroke N Asthma N Allergies N High Cholesterol N Hepatitis N Liver Disease N Headaches N Heart Failure N Osteoporosis N Gynecological HistoryNo gynecological history recorded. Obstetrics History GPAL:G 0 P 0 0 0 0 Immunizations Vaccine Type Date Status Note Provider Nam e and Address Organization Details Recorded Time Influenza, injectable,veronica valent, preservative free, pediatric 9 completed Not Available [facility] 03/24/2019 02:11:47 influenza, unspecified formulation 3 completed Sharon Staples [place], [place] [facility] 12/14/2022 14:58:23 COVID-19, mRNA, LNP-S, PF, 100 mcg/0.5mL dose or 50 mcg/0.25mL dose 1 completed Narinder Jones RN [place], [place] [facility] 05/02/2020 19:18:33 COVID-19, mRNA, LNP-S, PF, 100 mcg/0.5mL dose or 50 mcg/0.25mL dose 1 completed Narinder Jones RN [place], [place] [facility] 05/30/2020 13:37:51 COVID-19, mRNA, LNP-S, PF, 100 mcg/0.5mL dose or 50 mcg/0.25mL dose 2 completed Richar Zhao [place], [place] [facility] 03/05/2021 16:56:40 Past Encounters Encounter ID Performer Location Encounter Start Date Encounter Closed Date Diagnosis/Indication Diagnosis SNOMED-CT Code Diagnosis ICD10 Code Diagnosis Note [id number] MD Sher Cagle [address] [facility] Ed AYAK[place] Orta [address] 01/11/2014 16:24:41 01/25/2014 10:13:03 Hyperlipidemia 46944187 [id number] [facility] [address] [facility] AYAKA GOMES [address] 05/20/2014 13:41:25 05/20/2014 15:40:51 Umbilical hernia 104157279 [id number] [facility] [address] [place] [address] 06/13/2014 13:41:24 06/14/2014 13:10:09 Umbilical hernia 789114708 Doing well post-op. Return to work 06/18. [id number] [address] [address] 07/11/2014 13:33:43 07/11/2014 16:42:53 Umbilical hernia 641288825 Doing well post-op. [id number] [address] [place] [address] 08/22/2014 14:33:16 08/22/2014 15:32:02 Chronic constipation 770429197 Abdominal pain 82374384 Not sure related to hernia? constipati on? other path? Long standing, no red flags, has had colonoscop y related to similar sx and records requested. Follow up 3-4 weeks after Miralox [id number] [facility] [address] [place] [address] 09/12/2014 10:15:43 09/12/2014 15:36:14 Chronic constipation 694449164 Stool soft but continues infreq and current management incre bloating and discomfort . Refer back to GI. Hx colon polyps? Proc at [facility] - try locate records. Pain 30476184 At incision. If persists should follow up with surgeon [id number] [facility] [address] [place] [address] 11/11/2014 13:33:48 11/11/2014 16:03:51 Umbilical hernia 809000219 Still having pain post-op. Recommende d adding Metamucil for constipati on. Analgesics as needed. See me in three months if not resolved. [id number] Hawa Barney [facility] [address] [place] [address] 12/20/2014 15:14:33 12/20/2014 16:48:54 Abdominal pain 17893474 R10.9 Chronic constipation 236 647945 K59.00 History of polyp of colon 537605973 Z86.010 Swollen abdomen 59109241 R14.0 [id number] Charles lawrence MD [facility] ([facility] [address] [place] [address] 03/17/2015 10:01:11 03/17/2015 13:28:40 Chronic constipation 461231584 K59.00 Resume Miralx, colace, avoid constipati ng meds, foods [id number] Douglas Ontiveros PA-C [address] [address] 10/30/2015 17:11:28 11/06/2015 10:42:37 Migraine 73114380 G43.909 Acute sinusitis 39155938 J01.90 [id number] Charles lawrence MD [facility] (Adult Med) [address] [place] [address] 11/12/2015 14:07:53 11/12/2015 17:40:02 Headache 56586282 R51 Migraine? Advised trial Imitrex + ibu for several days. If headache freq continue will start Topamaxa t HS. Screening for disorder 550836576 Z13.9 remote hx anemia. no menses on current OCP [id number] Charles lawrence MD [facility] (Adult Med) [address] [place] [address] 12/17/2015 09:30:12 12/17/2015 11:43:28 Fatigue 12575996 R53.83 Advised adequate rest, self care. Laboratory test result abnormal 408571050 R89.9 HgA1C 6.1 - discussed two hour glucose tolerance test vs recheck periodic BS and A1Ca nd will proceed with latter. Anemia 550240137 D64.9 Mild, not Fe deficient, chronic. Next labs add peripheral smear, haptoglobi n and LDH [id number] Charles lawrence MD [facility] (Adult Med) [address] [place] [address] 11/30/2016 14:17:23 12/09/2016 11:27:05 Anemia 125646596 D64.9 Mild, not Fe deficient, chronic. Next labs add peripheral smear, haptoglobi n and LDH Impaired g lucose tolerance 0320537 R73.03 Fatigue 90430126 R53.83 Advised adequate rest, self care. LAbs pending. [id number] Charles lawrence MD [facility] (Adult Med) [address] [place] [address] 08/16/2017 09:19:58 08/16/2017 14:19:59 Bilateral knee pain 6377963880 2804216 M25.562 suspect patellofem oral pain; ice, ibuprofen, PT Neck pain 60915415 M54.2 acute, muscle related Impaired g lucose tolerance 7607062 R73.03 A1C 6 months [id number] Charles lawrence MD [facility] (Adult Med) [address] [place] [address] 01/25/2018 09:04:16 01/25/2018 10:16:42 Acute bronchitis 56630259 J20.9 [id number] Charles lawrence MD [facility] (Adult Med) [address] [place] [address] 07/19/2018 09:27:56 07/19/2018 10:18:50 Abdominal bloating 706720259 R14.0 Trial of Bentyl. Has never had imaging - consider? 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 3589987601 9462252 G54.2 [id number] Juan Ace MD [facility] (Adult Med) [address] [place] [address] 01/22/2020 10:30:34 01/23/2020 00:30:24 Lower gastrointestinal hemorrhage 27371754 K92.2 Constipation 58383313 K5 9.00 [id number] Narinder Jones RN [facility] (Adult Med) [address] [place] [address] 05/02/2020 14:41:44 05/05/2020 11:15:26 Administration of SARS-CoV-2 antigen vaccine 300944237 Z23 [id number] Narinder Jones RN [facility] (Adult Med) [address] [place] [address] 05/30/2020 12:29:31 06/04/2020 15:05:59 Administration of SARS-CoV-2 antigen vaccine 888813790 Z23 [id number] Juan Ace MD [facility] (Adult Med) [address] [place] [address] 09/15/2020 15:01:30 09/16/2020 12:18:01 Subarachnoid hemorrhage 72088253 I60.9 Cervical radiculopathy 02464511 M54.12 [id number] Juan Ace MD [facility] (Adult Med) [address] [place] [address] 09/29/2020 14:40:13 09/30/2020 09:52:11 Subarachnoid hemorrhage 17085604 I60.9 [id number] Juan Ace MD [facility] (Adult Med) [address] [place] [address] 10/16/2020 12:35:32 10/17/2020 12:57:56 Subarachnoid hemorrhage 31353813 I60.9 10/16/20 DOING WELL NOW. She may have some mild flaw in her collagen-v ascular system. [id number] Juan Ace MD [facility] (Adult Med) [address] [place] [address] 12/02/2020 14:17:36 12/03/2020 11:55:07 Pain of right shoulder joint 9128262786 8034667 M25.511 Cervical radiculopathy 08007700 M54.12 [id number] Richar Zhao MA [facility] (Adult Med) [address] [place] [address] 03/03/2021 17:21:53 03/06/2021 12:25:49 Administration of SARS-CoV-2 mRNA vaccine 3476994599 Z23 [id number] Juan Ace MD [facility] (Adult Med) [address] [place] [address] 04/28/2021 10:03:49 04/30/2021 13:21:13 Gastroesophageal reflux disease 394213341 K21.9 Screening for disorder 940272002 Z13.9 [id number] Lashon Lemus PA-C [facility] (Peds) [address] [place] [address] 09/02/2021 09:36:49 09/04/2021 23:44:08 Exposure to SARS-CoV-2 187212633 Z20.822 recent diagnosis on 09/01/21dis cussed recommende d days for quarentine will treat supportive lywarning signs discusseda ll questions answered [id number] [facility] [address] [place] [address] 10/09/2021 15:08:36 10/12/2021 14:23:56 COVID-19 770970206 U07.1 The coryza stage Gastroesop hageal reflux disease 437234307 K21.9 [id number] Juan Ace MD [facility] (Adult Med) [address] [place] [address] 02/08/2022 10:14:45 02/09/2022 09:08:29 Overweight 377934827 E66.3 Pharyngitis 775713262 J0 2.9 Looks like coxsackie. [id number] Juan Ace MD [facility] (Adult Med) [address] [place] [address] 06/08/2022 09:33:35 06/09/2022 23:13:51 Overweight 711973494 E66.3 counselled . Upper resp iratory infection 53818177 J06.9 [id number] Juan Ace MD [facility] (Adult Med) [address] [place] [address] 07/01/2022 11:40:57 07/06/2022 11:16:16 Cervical radiculopathy 14259420 M54.12 Prediabetes 523092745 R7 3.03 Hypercholesterolemia 136 77088 E78.00 [id number] Juan Ace MD [facility] (Adult Med) [address] [place] [address] 07/23/2022 17:23:09 07/27/2022 09:25:34 Otitis media 46680471 H66.93 [id number] Juan Ace MD [facility] (Adult Med) [address] [place] [address] 01/28/2023 12:52:37 02/01/2023 11:34:59 Overweight 743862341 E66.3 counselled . Abdominal pain 28149664 R10.9 [id number] Juan Ace MD [facility] (Adult Med) [address] [place] [address] 01/10/2024 10:18:59 01/11/2024 11:36:26 Gastroesophageal reflux disease 814587101 K21.9 Abdominal pain 94986821 R10.9 Essential hypertension 53833073 I10 Hyperglycemia 77142787 R 73.9 Vitamin D deficiency 347 85469 E55.9 Bacterial vaginosis 4197 74476 N76.0 [id number] Juan Ace MD [facility] (Adult Med) [address] [place] [address] 01/17/2024 10:32:07 01/20/2024 10:13:19 Diabetes mellitus 10950576 E11.9 Hypercholesterolemia 136 91504 E78.00 Essential hypertension [id number] I10 [id number] Juan Ace MD [facility] (Adult Med) [address] [place] [address] 03/05/2024 13:47:40 03/07/2024 12:45:13 Essential hypertension [id number] I10 Cervical radiculopathy [id number] M54.12 =====MRI 04/02/2019 MPRESSION: =====1. Left posterior lateral disc protrusion at C6-C7 causes severe stenosis atthe entry to the left foramen and mild to moderate spinal canal stenosis.T here is cord contact and indentatio n without cord signal abnormalit y.2. Degenerati ve changes at C5-C6 causing mild to moderate spinal canalsteno sis with minimal left and moderate right foraminal stenosis. Diabetes mellitus [id number] E11.9 [id number] Juan Ace MD [facility] (Adult Med) [address] [place] [address] 03/19/2024 09:43:51 03/21/2024 14:28:09 Diabetes mellitus [id number] E11.9 Essential hypertension [id number] I10 Neck pain [id number] M54.2 Cervical radiculopathy [id number] M54.12 =====MRI 04/02/2019 MPRESSION: =====1. Left posterior lateral disc protrusion at C6-C7 causes severe stenosis atthe entry to the left foramen and mild to moderate spinal canal stenosis.T here is cord contact and indentatio n without cord signal abnormalit y.2. Degenerati ve changes at C5-C6 causing mild to moderate spinal canalsteno sis with minimal left and moderate right foraminal stenosis. Health Concerns Section Related Observation LastModified by Organization Detai ls LastModified Time None Recorded Concern Status LastModified by Organization Details LastModified Time None Recorded Advance Directives Directive None Recorded Payers Encounter Date Sequence Insurance Name Policy Number Policy [place] Covered Member ID [place] Member ID Guarantor Name 01/28/2023 1 [employer] (PPO) [id number] [employer] [id number] [employer] [place] 01/10/2024 1 [employer] (PPO) [id number] Carter [place] [id number] [employer] [place] 01/17/2024 1 [employer] (PPO) [id number] Carter [place]ey [id number] Edel Rawls Social Media Assistant 03/05/2024 1 [employer] (PPO) [id number] Carter Cayey [id number] Edel Paris 03/19/2024 1 [employer] (PPO) [id number] Carter Cayey [id number] Edel Rawls Social Media Assistant Notes Date Note Type Note Provider Name and Address Organization Details Recorded Time 01/28/2023 text/html Follow up in the office. The patient complains of having some abdominal bloating and discomfort for the last 2 weeks. She is taking . The patient complains of having some abdominal bloating and discomfort for the last 2 weeks. She is taking her omeprazole. She has not changed her diet at all. She is not taking any new medications. She has been under some stress lately. Juan Ace MD Attn: [address] [place], [address], [facility] [place]/29/2023 17:12:44 01/10/2024 text/html CHECK UP. DOING OKAY. SHE HAS A LOT OF BLOATING STILL. THE OMEPRAZOLE IS NOT WORKING. SHE NOW HAS INDIGESTION. SHE TAKE METAMUCIL ON REGULAR BASIS. 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 SEEING CARRIER BLOWER NOW. SHE C/O BV. SHE HAS BEEN CONTROLLING THE WEIGHT. ORTHO TOLD HER SHE WILL NEED SURGERY ON LEFT SHOULDER. Juan Ace MD Attn: [address] [place], [address], [facility] [place]/10/2024 16:16:17 01/17/2024 text/html Follow up in the office for discussion on the treatment of diabetes. She feels ok. She has some ear stopping up. It bothers her. She has a good diet. She exercises regularly. She also has concerns about ther cholesterol. Juan Ace MD Attn: [address] [place], [address], [facility] 01/17/2024 16:25:27 03/05/2024 text/html Follow up in the office. The patient states that she is having a lot more pain in her neck going down in her back now. Some of the pain goes into her left arm. She was told by the neurosurgeon if things got worse she may have to have surgery. She still does not want surgery but wants to try to get the injections now because of the pain. They have been pretty bad over the last two days. There is no chills a fever. Juan Ace MD Attn: [address] [facility], [place], [address], [facility] [place] 03/06/2024 00:23:07 03/19/2024 text/html F/u in office. S he is doing better. Her neck was hurting so much that she went to the ER. They treated her as if she was drug seeking. She was given toradol. It did not help. It gradually got better. She thinks it started from shoveling snow. She is interested in the farxiga or jardiance. Juan Ace MD Attn: [address] [facility], [place], [address], [facility] [place] 03/19/2024 22:11:20 OBGyn Episode No OBEpisode recorded.
--- OUTSIDE RECORDS SUMMARY | 2024-03-25 10:32 | XMS_ITS | Clinical Summary ---
Author Organization [facility] Address [address] [place] [address] Care Team Providers Care Information Technology Internship Name Role Phone Juan Ace MD Primary Care Provider [phone] Kalani Ace MD Unavailable [phone] Allergies No known active allergies Medications omeprazole (PriLOSEC) 20 mg capsule Take by mouth daily 12/01/19 22 Active multivit with minerals/lutei n (MULTIVITAMIN 50 PLUS ORAL) multivitamin Act david meloxicam (MOBIC) 7.5 mg tablet Take 1 tablet (7.5 mg total) by mouth 2 (two) times a day 60 tablet 08/20/19 23 Active Additional Information Patient not taking.Reported on 03/16/2024 polyethylene glycol (MIRALAX) 17 gram/dose bulk powder Take 17 g by mouth daily 510 g 11 04/18/19 24 Active Additional Information Patient not taking.Reported on 03/16/2024 norethindrone (AYGESTIN) 5 mg tablet Take 1 tablet (5 mg total) by mouth daily 30 tablet 11 07/25/19 24 2024 Active Additional Information Patient not taking.Reported on 03/16/2024 estradioL (ESTRACE) 0.01 % (0.1 mg/gram) vaginal creamIndicatio ns:Abnormal uterine bleeding,Vagin al dryness Apply nightly to vagina for 1 week, then Tuesday/ y/ Tuesday 42.5 g 5 08/05/19 24 2024 Active acetaminophen- codeine (TYLENOL with CODEINE #3) 300-30 mg per tablet Active albuterol HFA (PROVENTIL HFA,VENTOLIN HFA,PROAIR HFA) 90 mcg/actuation inhaler Inhale 2 puffs every 4-6 hours by inhalation route. 09/03/19 22 Active azithromycin (ZITHROMAX) 250 mg tablet TAKE 2 TABLETS (500 MG) BY ORAL ROUTE ONCE DAILY FOR 1 DAY THEN 1 TABLET (250 MG) BY ORAL ROUTE ONCE DAILY FOR 4 DAYS Active azithromycin (ZITHROMAX) 500 mg tablet Take 1 tablet every day by oral route for 3 days. Active benzonatate (TESSALON) 200 mg capsule TAKE 1 CAPSULE BY MOUTH THREE TIMES DAILY NEEDED Active cephalexin (KEFLEX) 500 mg capsule Active cetirizine (ZyrTEC) 10 mg tablet Take 1 tablet (10 mg total) by mouth daily Active cholecalcifero l 25 mcg (1,000 unit) tablet 12/01/19 17 Active guaiFENesin-co deine (GUAITUSS AC) liquid 100-10 mg/5 mL Take 10 mL every 6 hours by oral route. Active dicyclomine (BENTYL) 10 mg capsule TAKE 1 CAPSULE BY MOUTH THREE TIMES DAILY BEFORE MEALS 03/22/19 24 Active docusate sodium (DOK) 100 mg capsule TK 1 C PO BID DIRECTED Active ergocalciferol (VITAMIN D) 50,000 unit capsule Take 1 capsule (50,000 Units total) by mouth Active famotidine (PEPCID) 40 mg tablet Take 1 tablet (40 mg total) by mouth daily Active dextromethorph an-guaifenesin 60-1,200 mg tablet extended release 12 hr Take 1 tablet twice a day by oral route. 09/03/19 22 Active lubiprostone (Amitiza) 24 mcg capsule Take 1 capsule twice a day by oral route. 12/21/19 15 Active methylPREDNISo lone acetate (DEPO-MedroL) 80 mg/mL injection Take 80 mg by injection route. 12/03/19 21 Active nitrofurantoin monohydrate (MACROBID) 100 mg capsule TAKE 1 CAPSULE BY MOUTH EVERY 12 HOURS FOR 5 DAYS Active promethazine (PHENERGAN) 1.25 mg/mL syrup TAKE 10 ML BY MOUTH EVERY 6 HOURS NEEDED Active SUMAtriptan (IMITREX) 100 mg tablet Take 1 tablet as needed by oral route for 10 days. Active SUMAtriptan (IMITREX) 50 mg tablet Take one or two with onset RENE, max 2 tabs in 24 hours Active omeprazole (PriLOSEC) 20 mg capsule omeprazole 20 mg capsule,delayed release TAKE 1 CAPSULE BY MOUTH EVERY DAY Active pantoprazole DR (PROTONIX) 40 mg EC tablet Take 1 tablet (40 mg total) by mouth daily Active metroNIDAZOLE (FLAGYL) 500 mg tablet Take 1 tablet twice a day by oral route for 14 days. Active cyclobenzaprin e (FLEXERIL) 10 mg tablet TAKE 1 TABLET BY MOUTH THREE TIMES DAILY NEEDED FOR SPASM 03/10/19 25 Active metFORMIN XR (GLUCOPHAGE XR) 500 mg 24 hr tablet Take 1 tablet every day by oral route. Active amitriptyline (ELAVIL) 10 mg tabletIndicati ons:Migraine Prevention Take 1 tablet (10 mg total) by mouth nightly 30 tablet 11 12/31/19 22 2022 Discontinued tiZANidine (ZANAFLEX) 4 mg tablet Take 1 tablet (4 mg total) by mouth nightly as needed for muscle spasms 30 tablet 08/20/19 23 2024 Discontinued(T herapy completed) cyclobenzaprin e (FLEXERIL) 5 mg tablet 2024 Discontinued(T herapy completed) oxyCODONE-acet aminophen (PERCOCET) 5-325 mg per tablet 2024 Discontinued(T herapy completed) Hospital, Clinic, or Other Facility Administered Medication Ordered Dose Route Frequency Start Date End Date Status medroxyPROGESTERone (DEPO-PROVERA) 150 mg/mL injection 150 mgIndications:Surve illance for Depo-Provera contraception 150 mg IM During hospitalization 03/16/2024 Ended Active Problems No known active problems Encounters Date Type Department Care Team Description 03/21/2024 Telephone [facility] Obstetrics and Gynecology [address] [facility] 7th Floor [address] [place] [address] Mina Nolan RN Abnormal Uterine Bleeding 03/16/2024 6:04 PM TONAL REGULATOR - 03/16/2024 11:59 PM TONAL REGULATOR Hospital Encounter [facility] PATHOLOGY [address] [facility] 3rd [place] [address] Discharge Disposition: Discharge to home or self care 03/16/2024 1:30 PM TONAL REGULATOR Procedure visit [facility] Obstetrics and Gynecology [address] [place] [address] 7th Floor [address] [place] [phone] Carolyne Schroeder MD Atypical squamous cells of undetermined significance (ASCUS) on Papanicolaou smear of cervix (Primary Dx); Surveillance for Depo-Provera contraception; Adenomyosis 03/14/2024 1:00 PM TONAL REGULATOR Ancillary Procedure [facility] Obstetrics and Gynecology [address] [facility] [address] [place] [address] Abnormal uterine bleeding (AUB) 03/09/2024 2:40 AM TONAL REGULATOR - 03/09/2024 6:04 AM TONAL REGULATOR Emergency [place] [facility] [address] [place] [address] Apryl Mazariegos MD Acute on chronic back pain (Primary Dx); Cervical radiculopathy Discharge Disposition: Discharge to home or self care 02/17/2024 Telephone [facility] Obstetrics and Gynecology [address] [place] [address] 7th Floor [address] [place] [address] Magalie Blood RN Test Results 02/01/2024 5:27 PM TONAL REGULATOR - 02/01/2024 11:59 PM TONAL REGULATOR Hospital Encounter [place] [facility] [address] [place] [address] Cervical cancer screening Discharge Disposition: Discharge to home or self care 02/01/2024 2:00 PM TONAL REGULATOR Office Visit [facility] Obstetrics and Gynecology [address] [facility] [address] [place] [phone] Carolyne Schroeder MD Encounter for annual routine gynecological examination (Primary Dx); Encounter for screening for malignant neoplasm of breast, unspecified screening modality; Cervical cancer screening; Abnormal uterine bleeding (AUB); Encounter for screening for infections with predominantly sexual mode of transmission; Encounter for general counseling and advice on contraceptive management; Personal history of subarachnoid hemorrhage; Vaginal discharge 01/06/2024 10:15 AM TONAL REGULATOR Clinical Support [facility] [address] [place] [address] 3rd Floor [address] [place] [address] Depo-Provera contraceptive status (Primary Dx) from Last 3 Months Immunizations Name Administration Dates Next Due Hep A, Adult 11/27/2009,08/31/2002 Hep B Vaccine 11/27/2009,10/25/2008,08/16/2008 Influenza, Quadrivalent, Spl it, Pediatric, Preservative Free, Intramuscular 01/09/2019 Influenza, Unspecified 12/14/2022 MMR 11/27/2009,11/30/1991 Td, adsorbed 11/27/2009,11/30/1991 Varicella 11/27/2009 Surgical History Surgery Date Site/Laterality Comments SECTION Medical History Medical History Date Comments Migraines Lumbar facet arthropathy Anterolisthesis of lumbar spine, mild L4-L5 07/22 Piriformis syndrome, left 08/03/2022 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 Monthly or less 02/01/2024 Q2: How many drinks containi ng alcohol do you have on a typical day when you are drinking? 1 or 2 02/01/2024 Q3: How often do you have si x or more drinks on one occasion? Never 02/01/2024 Hunger Vital Sign Answer Date Recorded Within the past 12 months, y ou worried that your food would run out before you got the money to buy more. Never true 08/05/19 24 Within the past 12 months, t he food you bought just didn't last and you didn't have money to get more. Never true 08/05/2023 Personal Safety Answer Date Recorded Have you ever been in or are you currently in a harmful physical or emotional relationship or is someone making you feel afraid or unsafe? 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 Not on file Not on file Not on file Obstetrics History Para Term AB IAB SAB Ectopic Multiple Livin g Live Births 6 3 3 3 3 3 3 Date Outcome GA Total Labor Labor/2nd/3rd Weight Sex Type Anes PTL Isabell A1 A5 Name Clin 1994 Term F Vaginal Living 1999 Term F Vaginal Living 2005 Term F C-Secti on Living 2021 Last Filed Vital Signs Vital Sign Reading Time Taken Comments Blood Pressure 145/90 03/16/2024 1:13 PM TONAL REGULATOR Pulse 71 03/09/2024 5:45 AM TONAL REGULATOR Temperature 36.9 ??C (98.4 ??F) 03/09/2024 5:45 AM CS T Respiratory Rate 18 03/09/2024 5:45 AM TONAL REGULATOR Oxygen Saturation 100% 03/09/2024 5:45 AM TONAL REGULATOR Inhaled Oxygen Concentration - - Weight 72.6 kg (160 lb) 03/16/2024 1:13 PM TONAL REGULATOR Height 170.2 cm (5' 7 ) 03/16/2024 1:13 PM TONAL REGULATOR Body Mass Index 25.06 03/16/2024 1:13 PM TONAL REGULATOR Plan of Treatment Health Maintenance Due Date Last Done Comments Colon Cancer Screening-Colonoscopy 1975 Depression Screening 1975 Hepatitis C Screening 1975 DTaP/Tdap/Td Vaccine (1 - Tdap) 11/28/2009 11/27/2009, 11/30/1991 Covid-19 Vaccine ( season) 2023 03/03/2021, 05/30/2020, 05/02/2020 Influenza Vaccine (#1) 2023 12/14/2022, 2018 Breast Cancer Screening-Mammogram 03/22/2024 03/22/2023, 03/22/2023, 02/16/2022, Additional history exists Cervical Cancer Screening 01/31/2025 02/01/2024, 12/2023 Regular Well Visit/Exam 18-64 01/31/2025 02/01/2024, 04/18/2023 HPV Vaccines Aged Out No longer eligi ble based on patient's age to complete this topic Pneumococcal vaccine <65 Aged Out No longer eligible based on patient's age to complete this topic Procedures Procedure Name Priority Date/Time Associated Diagnosis Comments SURGICAL PATHOLOGY Routine 03/16/2024 2: 07 PM TONAL REGULATOR US PELVIS COMPLETE Schedule Routine, Read Routine (OP Routine) 03/14/2024 12:51 PM TONAL REGULATOR Abnormal uterine bleeding (AUB) ECG 12-LEAD STAT 03/09/2024 4:59 AM TONAL REGULATOR EGFR STAT 03/09/2024 4:47 AM TONAL REGULATOR DIFFERENTIAL AUTO STAT 03/09/2024 4:4 7 AM TONAL REGULATOR TROPONIN T HIGH-SENSITIVITY SERIES (BASELINE, 2HR, 4HR, 6HR) STAT 03/09/2024 4:47 AM TONAL REGULATOR COMPREHENSIVE METABOLIC PANEL STAT 03/09/2024 4:47 AM TONAL REGULATOR CBC WITH AUTO DIFFERENTIAL STAT 03/09/2024 4:47 AM TONAL REGULATOR XR CHEST PA LATERAL 2 VIEWS ED 03/09/2024 4:38 AM TONAL REGULATOR POCT HCG, URINE Routine 03/09/2024 3:23 AM TONAL REGULATOR SURESWAB(R), CT/NG, T VAGINALIS Routine 02/01/2024 2:56 PM TONAL REGULATOR Encounter for screening for infections with predominantly sexual mode of transmission POCT [place]P YEAST/FUNGUS Routine 02/01/2024 2:53 PM TONAL REGULATOR Vaginal discharge POCT VAGINAL PH Routine 02/01/2024 2:53 PM TONAL REGULATOR Vaginal discharge POCT WET PREP Routine 02/01/2024 2:53 PM TONAL REGULATOR Vaginal discharge PAP AND HIGH RISK HPV, REFLEX TO GENOTYPING Routine 02/01/2024 2:52 PM TONAL REGULATOR Cervical cancer screening HIGH RISK HPV DNA DETECTION WITH GENOTYPING Routine 02/01/2024 2:22 PM TONAL REGULATOR Cervical cancer screening SCREENING MAMMOGRAM BILATERAL W QUINTIN Schedule Routine, Read Routine (OP Routine) 03/22/2023 10:20 AM TONAL REGULATOR Screening mammogram, encounter for from Last 3 Months or Most Recently Relevant to Health Maintenance Results * Surgical pathology (03/16/2024 2:07 PM TONAL REGULATOR) Endometrial biopsy 2:07 PM TONAL REGULATOR 03/16/2024 3:59 PM TONAL REGULATOR Narrative 03/19/2024 11:48 AM TONAL REGULATOR EPIC results best viewed via link to PDF [facility] [place] [address] Note to Patients: This report may contain a detailed description of human tissue sent by a health care provider to the laboratory for pathologic evaluation. The content of this report is essential for diagnosis and may provide important critical findings. This information may be unfamiliar to patients to review without a medical professional present. It is advised that the patient review this report in the presence of a health care provider who can answer questions and explain the details. SURGICAL PATHOLOGY REPORT FINAL Patient Name: ?? EDEL AGUILA Gender: ??F : ??1975 (Age: 48) Address: ??[address] [place] [address] ??[id number] Hospital #: ??[id number] Taken:03/16/2024 Received:03/16/2024 Reported: 03/19/2024 Patient Type: [facility] SPECIMEN ?? Service: UNKNOWN Location: Physician(s): ??Carolyne Schroeder MD Diagnosis: Endocervix, curettage ? - Insufficient tissue for diagnosis lxs/03/19/2024 10:13 By this signature, I attest that the above diagnosis is based upon my personal examination of the slides(and/or other material indicated in the diagnosis). Neelima Wise MD PhD Report Electronically Reviewed and Signed Out By ??Neelima Wise MD PhD 03/19/2024 11:48:46 Azalia Garrett M.D. History: The patient is a 48-year-old woman presenting for ASCUS/HPV positive Pap. ??Operative procedure: ??Endocervical curettage. Specimen(s) Received: A: Endometrial curettings Gross Description: Received in formalin, labeled with the patient? ? s identifiers and endocervical curettage is an aggregate of mucinous material and a scant amount of possible included tissue (measuring 2.2 x 0.6 x 0.1 cm in aggregate, may not survive processing). ?? Labeled A1. Jar 0. ?? elsw/03/16/2024 18:17 PA(s): Kim Cooney By this signature, I attest that the above diagnosis is based upon my personal examination of the slides(and/or other material). Addenda/Procedures The performance characteristics of some immunohistochemical stains, fluorescence in-situ hybridization tests and immunophenotyping by flow cytometry cited in this report (if any) were determined by the Surgical Pathology and Flow Cytometry Departments at [facility] as part of an ongoing manufacturing quality engineer program and in compliance with federally mandated regulations drawn from the Clinical Laboratory Improvement Act of 1988 (CLIA '88). ??Some of these tests rely on the use of analyte specific reagents and are subject to specific labeling requirements by the US Food and Drug Administration. ??Such diagnostic tests may only be performed in a facility that is certified by the Department of Health and Human Services as a high complexity laboratory under CLIA '88. ??The FDA has determined that such clearance or approval is not necessary. ??This test is used for clinical purposes. ??It should not be regarded as investigational or for research. ??Nevertheless, federal rules concerning the medical use of analyte specific reagents require that the following disclaimer be attached to the report: This test was developed and its performance characteristics determined by the Surgical Pathology and Flow Cytometry Departments of [facility]. ??It has not been cleared or approved by the U. S. Food and Drug Administration. IMAGES AND SCANNED DOCUMENTS, IF INCLUDED, ONLY VIEWABLE IN PDF VERSION OF REPORT Carolyne Schroeder MD LAB PATHOLOGY ORDERABLE S Final Result * US Pelvis Complete (03/14/2024 12:51 PM TONAL REGULATOR) Cul de Sac No free fluid visualized VIEWPOINT Endometrial Thickness 4.0 mm&millim eters VIEWPOINT Anatomical Region Laterality Modality Pelvis N/A Ultrasound 03/14/2024 12:5 4 PM TONAL REGULATOR Impressions 03/14/2024 1:17 PM TONAL REGULATOR 1- Enlarged uterus with suspected adenomyosis. 2- Normal appearing ovaries 3- No adnexal masses are identified. Narrative Procedure Note Juan Coles MD - 03/14/2024 IMPRESSION: 1- Enlarged uterus with suspected adenomyosis. 2- Normal appearing ovaries 3- No adnexal masses are identified. Carolyne Schroeder MD IMG US PROCEDURES Final Result * ECG 12 lead (03/09/2024 4:59 AM TONAL REGULATOR) Ventricular Rate EKG/Min 62 BPM [facility] Atrial Rate 62 BPM [facility] CO-Interval (MSEC) 154 ms [facility] QRS-Interval (MSEC) 86 ms [facility] QT-Interval (MSEC) 420 ms [facility] QTc 426 ms [facility] P [place] 35 degrees [facility] R [place] 59 degrees [facility] T [place] 39 degrees [facility] Diagnosis Normal sinus rhythm Normal ECG When compared with ECG of 29-OCT-2006 21:47, No significant change was found Confirmed by GITA NELSON M.D. ([id number]) on 03/10/2024 12:54:43 PM [facility] 03/09/2024 4:59 AM TONAL REGULATOR 03/10/2024 12:54 PM TONAL REGULATOR Apryl Mazariegos MD ECG ORDERABLES Final Re [facility]ult [facility] * Troponin T high-sensitivity series (baseline, 2hr, 4hr, 6hr) (03/09/2024 4:47 AM TONAL REGULATOR) Trop T hs <6 <=14 ng/L Comment: Interpretive Data For further hscTnT resources including the diagnostic algorithm and an aid in interpretation, copy and paste this link: https://nrl.testcatalog.org/show/hsTrop Current Interpretive Data last revised 2019. Testing performed by: [facility], [address] [place] [address]., [id number] Blood 03/09/2024 4:47 AM TONAL REGULATOR 03/09/2024 4:50 AM TONAL REGULATOR us Apryl Mazariegos MD LAB BLOOD ORDERABLES Fin al Result Performing Organization Address [facility] de Phone Number [place] [phone] [facility] Department of Laboratories [place], [place] [id number] * eGFR (03/09/2024 4:47 AM TONAL REGULATOR) Pathologist [facility] eGFR >90 >=60 mL/min/1. 73 m2 Comment: Interpretive Data Reference Interval Normal ?>/= 90 mL/min/1.73m2 Mildly decreased* ? 60 - 89 mL/min/1.73m2 Mildly to moderately decreased ?45 - 59 mL/min/1.73m2 Moderately to severely decreased ??30 - 44 mL/min/1.73m2 Severely decreased ?15 - 29 mL/min/1.73m2 Kidney Failure ?< 15 ??mL/min/1.73m2 *Relative to young adult level Estimated glomerular filtration rate is determined by the 2020 CKD-EPI equation recommended by the National Kidney Foundation (A Unifying Approach to GFR Estimation: Recommendations of the NKF-ASK Task Force on Reassessing the Inclusion of Race in Diagnosing Kidney Disease, JASN 202). The CKD-EPI equation should not be used for patients with unstable renal function and has not been validated in children and those over 70. Current interpretive data was last reviewed 2020. Testing performed by: [address] [address] Blood 03/09/2024 4:47 AM TONAL REGULATOR 03/09/2024 4:50 AM TONAL REGULATOR us Apryl Mazariegos MD LAB BLOOD ORDERABLES Fin al Result [facility] [address] [facility] Department [place] [address] * Differential, auto (03/09/2024 4:47 AM TONAL REGULATOR) Neutrophil abs 2.8 1.5 - 6.5 K/cumm Comment:Testing performed by : [address] [address] Imm gran abs 0.0 0.0 - 0.1 K/cumm [facility] Comment:Testing performed by : [address] [address] Lymphocyte abs 3.0 0.8 - 3.3 K/cumm [place] Comment:Testing performed by : [address] [address] Monocyte abs 0.4 0.2 - 0.8 K/cumm [place] Comment:Testing performed by : [address] [address] Eosinophil abs 0.2 0.0 - 0.5 K/cumm [place] Comment:Testing performed by : [address] [address] Basophil abs 0.0 0.0 - 0.1 K/cumm [place] Comment:Testing performed by : [address] [address] Neutrophil pct 43.7 % [facility] Comment: Interpretive Data Percent cell count reference ranges are not reported, since discordance with absolute values may lead to misinterpretation of CBC data. Current Interpretive Data was last revised on 2017. Testing performed by: [address] [address] Imm gran pct 0.2 % [facility] Comment: Interpretive Data Percent cell count reference ranges are not reported, since discordance with absolute values may lead to misinterpretation of CBC data. Current Interpretive Data was last revised on 2017. Testing performed by: [address] [address] Lymphocyte pct 46.6 % [facility] Comment: Interpretive Data Percent cell count reference ranges are not reported, since discordance with absolute values may lead to misinterpretation of CBC data. Current Interpretive Data was last revised on 2017. Testing performed by: [address] [address] Monocyte pct 6.6 % [facility] Comment: Interpretive Data Percent cell count reference ranges are not reported, since discordance with absolute values may lead to misinterpretation of CBC data. Current Interpretive Data was last revised on 2017. Testing performed by: [address] [address] Eosinophil pct 2.4 % [facility] Comment: Interpretive Data Percent cell count reference ranges are not reported, since discordance with absolute values may lead to misinterpretation of CBC data. Current Interpretive Data was last revised on 2017. Testing performed by: [address] [address] Basophil pct 0.5 % [facility] Comment: Interpretive Data Percent cell count reference ranges are not reported, since discordance with absolute values may lead to misinterpretation of CBC data. Current Interpretive Data was last revised on 2017. Testing performed by: [address] [address] Blood 03/09/2024 4:47 AM TONAL REGULATOR 03/09/2024 4:50 AM TONAL REGULATOR us Apryl Mazariegos MD LAB BLOOD ORDERABLES Fin al Result [facility] [address] [facility] Department [place] [address] * (ABNORMAL) CBC with auto differential (03/09/2024 4:47 AM TONAL REGULATOR) WBC 6.4 3.8 - 9.9 K/cumm Comment:Testing performed by : [address] [address] Hgb 11.4(L) 11.9 - 15.5 g/dL [facility] Comment:Testing performed by : [address] [address] Hct 34.6(L) 35.6 - 45.5 % [facility] Comment:Testing performed by : [address] [address] Plt 295 150 - 400 K/cumm [place] Comment:Testing performed by : [address] [address] MPV 10.4 9.1 - 12.3 fL [facility] Comment:Testing performed by : [address] [address] RBC 4.28 3.90 - 5.20 M/cumm [facility] Comment:Testing performed by : [address] [address] MCV 80.8(L) 81.3 - 96.4 fL [facility] Comment:Testing performed by : [address] [address] MCH 26.6(L) 27.1 - 33.3 pg [facility] Comment:Testing performed by : [address] [address] MCHC 32.9 32.3 - 35.7 g/dL [facility] Comment:Testing performed by : [address] [address] RDW CV 13.1 11.1 - 14.9 % [facility] Comment:Testing performed by : [address] [address] RDW SD 38.0 35.7 - 48.1 fL [facility] Comment:Testing performed by : [address] [address] NRBC abs 0.00 0.00 - 0.01 K/cumm [place] Comment:Testing performed by : [address] [address] Blood 03/09/2024 4:47 AM TONAL REGULATOR 03/09/2024 4:50 AM TONAL REGULATOR us Apryl Mazariegos MD LAB BLOOD ORDERABLES Fin al Result ELAYNE [address] [facility] Department [place] [address] * (ABNORMAL) Comprehensive metabolic panel (03/09/2024 4:47 AM TONAL REGULATOR) Sodium 140 135 - 145 mmol/L Comment:Testing performed by : [address] [address] Potassium, pl 3.2(L) 3.3 - 4.9 mmol/L ELAYNE Comment:Testing performed by : [address] [address] Chloride 103 97 - 110 mmol/L ELAYNE Comment:Testing performed by : [address] [address] CO2 26 22 - 32 mmol/L ELAYNE Comment:Testing performed by : [address] [address] Anion gap 11 2 - 15 mmol/L ELAYNE Comment:Testing performed by : [address] [address] BUN 14 6 - 25 mg/dL ELAYNE Comment:Testing performed by : [address] [address] Creatinine 0.60 0.60 - 1.10 mg/dL ELAYNE Comment:Testing performed by : [address] [address] Glucose 126 70 - 199 mg/dL ELAYNE Comment: Interpretive Data Fasting glucose >/= 126 mg/dl is diagnostic for diabetes. ?? Fasting is defined as no caloric intake for at least 8 hours. Fasting glucose between 100 mg/dl to 125 mg/dl is diagnostic of prediabetes. In a patient with classic symptoms of hyperglycemia or hyperglycemic crisis, a random glucose >/= 200 mg/dl is diagnostic for diabetes. In the absence of unequivocal hyperglycemia, results should be confirmed by repeat testing. The classification and Diagnosis of Diabetes Diabetes Care 2021; 46: S19-S40. Current interpretive data was last revised 2022. Testing performed by: [address] [address] Calcium 9.4 8.5 - 10.3 mg/dL ELAYNE Comment:Testing performed by : [address] [address] Bilirubin, total 0.4 0.1 - 1.2 mg/dL ELAYNE Comment:Testing performed by : [address] [address] Protein, pl 7.3 6.5 - 8.5 g/dL ELAYNE Comment:Testing performed by : [address] [address] Albumin 4.4 3.5 - 5.0 g/dL ELAYNE Comment:Testing performed by : [address] [address] Alk phos 69 40 - 130 Units/L ELAYNE Comment:Testing performed by : [address] [address] ALT 12 7 - 45 Units/L ELAYNE Comment:Testing performed by : [address] [address] AST 14 10 - 45 Units/L ELAYNE Comment:Testing performed by : [address] [address] Blood 03/09/2024 4:47 AM TONAL REGULATOR 03/09/2024 4:50 AM TONAL REGULATOR us Apryl Mazariegos MD LAB BLOOD ORDERABLES Fin al Result [facility] [address] [facility] Department of Laboratories [place], [place] [id number] [phone] * XR Chest Pa Lateral 2 Vw (03/09/2024 4:38 AM TONAL REGULATOR) Anatomical Region Laterality Modality Body, Chest N/A Computed Radiogr aphy 03/09/2024 4:53 AM TONAL REGULATOR Narrative 03/09/2024 4:54 AM TONAL REGULATOR EXAM DESCRIPTION: XR CHEST PA LATERAL 2 VIEWS REASON FOR STUDY: Thoracic back pain ?? Upper back and neck pain since on Tuesday. ? TECHNIQUE: ??Frontal and lateral views of the chest. COMPARISON: 01/09/2010 FINDINGS: LUNGS AND PLEURA: ??No focal airspace opacity, pleural effusion, or pneumothorax identified. HEART/MEDIASTINUM: ??Trachea midline. ?? Cardiac silhouette normal in size. Mediastinal contours appear normal. BONES: ??Unremarkable. ?? CHEST WALL: ??Unremarkable. ?? UPPER ABDOMEN: ??Unremarkable. ?? IMPRESSION: Unremarkable chest radiographs. ?? THIS IS AN ELECTRONICALLY VERIFIED FINAL REPORT 03/09/2024 4:54 AM - Electronically signed by ??Waqas Parish M.D. AR: ISA D: ??03/09/2024 4:54 AM T: ??03/09/2024 4:54 AM Report ID: [id number] Reading Location: ??[id number] Procedure Note Waqas Parish MD - 03/09/2024 EXAM DESCRIPTION: XR CHEST PA LATERAL 2 VIEWS REASON FOR STUDY: Thoracic back pain Upper back and neck pain since tuesday. TECHNIQUE: Frontal and lateral views of the chest. COMPARISON: 01/09/2010 FINDINGS: LUNGS AND PLEURA: No focal airspace opacity, pleural effusion,or pneumothorax identified. HEART/MEDIASTINUM: Trachea midline. Cardiac silhouette normal in size. Mediastinal contours appear normal. BONES: Unremarkable. CHEST WALL: Unremarkable. UPPER ABDOMEN: Unremarkable. IMPRESSION: Unremarkable chest radiographs. THIS IS AN ELECTRONICALLY VERIFIED FINAL REPORT 03/09/2024 4:54 AM - Electronically signed by Waqas Parish M.D. AR: ISA Report ID: [id number] Reading Location: [id number] Apryl Mazariegos MD IMG XR PROCEDURES Final Result * POCT hCG, urine (03/09/2024 3:23 AM TONAL REGULATOR) Pathologist [facility] HCG, ur, POC Negative Negative Lot Number [id number] QC Backgroud Clear Acceptable QC Control Line Acceptable Urine 03/09/2024 3:23 AM TONAL REGULATOR Apryl Mazariegos MD POINT OF CARE TEST ORDER CRISTINO Final Result * SURESWAB(R), CT/NG, T VAGINALIS (02/01/2024 2:56 PM TONAL REGULATOR) Pathologist [facility] C. trachomatis RNA NOT DETECTED NOT DETECTED [facility] N. gonorrhoeae RNA NOT DETECTED NOT DETECTED [facility] Comment [facility] Comment: The analytical performance characteristics of this assay, when used to test SurePath(TM) specimens have been determined by [facility]. The modifications have not been cleared or approved by the FDA. This assay has been validated pursuant to the CLIA regulations and is used for clinical purposes. For additional information, please refer to https://Trooval.[employer].Bracketr/faq/VDQ174 (This link is being provided for information/ educational purposes only.) Trichomonas vaginalis NOT DETECTED NOT DETECTED [facility] [place] Comment: For additional information, please refer to http://education.Vas[employer]/ faq/Trichomonastma (This link is being provided for informational/ educational purposes only.) Endocervical/vag inal 02/01/2024 2:56 PM TONAL REGULATOR 02/02/2024 10:42 AM TONAL REGULATOR Carolyne Schroeder MD LAB BLOOD ORDERABLES Fi nal Result [facility] [address] [address] [phone] * POCT WET PREP (02/01/2024 2:53 PM TONAL REGULATOR) Trichomonas, Wet Prep Not present Not present Yeast, Wet Prep Not present Not present Clue Cells, Wet Prep Present Not present Epithelial Cells, Wet Prep Present Not present Bacilli, Wet Prep Present Not present Spermatozoa, Wet Prep Not present Not present RBC, Wet Prep Not present Not present Vaginal 02/01/2024 2:53 PM TONAL REGULATOR Carolyne Schroeder MD POINT OF CARE TEST ORDE RABLES Final Result * POCT SANTA prep yeast/fungus (02/01/2024 2:53 PM TONAL REGULATOR) SANTA Prep, POC Yeast/Fungi are Absent Yeast/Khanh i are Absent Swab 02/01/2024 2:53 PM TONAL REGULATOR Carolyne Schroeder MD POINT OF CARE TEST ORDE RABLES Final Result * POCT vaginal pH (02/01/2024 2:53 PM TONAL REGULATOR) PH, POC 8 Vaginal 02/01/2024 2:53 PM TONAL REGULATOR Carolyne Schroeder MD POINT OF CARE TEST ORDE RABLES Final Result * (ABNORMAL) Pap and High Risk HPV and Genotyping (Cytology Component) (02/01/2024 2:52 PM TONAL REGULATOR) Thin prep (Pap test) 02/01/2024 2:52 PM TONAL REGULATOR 02/02/2024 12:30 PM TONAL REGULATOR Narrative PATHOLOGY [facility] - 02/13/2024 11:59 AM TONAL REGULATOR EPIC results best viewed via link to PDF [facility] [place] [address] Note to Patients: This report may contain a detailed description of human tissue sent by a health care provider to the laboratory for pathologic evaluation. The content of this report is essential for diagnosis and may provide important critical findings. This information may be unfamiliar to patients to review without a medical professional present. It is advised that the patient review this report in the presence of a health care provider who can answer questions and explain the details. CYTOPATHOLOGY REPORT FINAL Patient Name: ??EDEL AGUILA Gender: ??F : ??1975 (Age: 48) Address: ??[address] [place] [address] ??[id number] [facility] #: ??[id number] Service: ??DEFAULT Location: ?? Patient Type: ??[facility] SPECIMEN Taken: ??02/01/2024 Received: ??02/02/2024 Accessioned: ??02/03/2024 Reported: ??02/13/2024 Physician(s): ??Carolyne Schroeder MD ?? FINAL INTERPRETATION SOURCE OF SPECIMEN ? Liquid based Thin Prep pap with HPV: STATEMENT OF ADEQUACY ?- Satisfactory for evaluation ?- Endocervical cells/transformation zone sample present ? GENERAL CATEGORIZATION: ?- EPITHELIAL CELL ABNORMALITY ? INTERPRETATION: ?- Atypical squamous cells of undetermined significance (ASCUS) ? Comments (Abnormal-Positive for High Risk HPV) HPV HR 16- NOT DETECTED ?? HPV HR 18- NOT DETECTED HPV HR NON 16/18- DETECTED Interpretive Data Nucleic acid amplification for detection of high-risk Human Papilloma virus (HPV) is performed by the [facility] 6800 HPV test. ??This assay specifically detects HPV-16 and HPV-18 genotypes. ??The following HPV genotypes are detected as high-risk HPV: HPV-31, 33, 35, 39, 45, 51, 52, 56, 58, 59, 66, and 68. ??This assay has been approved by the [place] Food and Drug Administration for detection of HPV in cervical specimens collected by a physician using an endocervical brush/spatula or cervical broom and placed in the ThinPrep Pap Test PreservCyt collection containers. ??The performance characteristics of this test have been verified by the [facility] Molecular Infectious Disease laboratory. ??Correlate with reported cytology results, as applicable. Interpretive data last revised 22 sucr/02/13/2024 11:59 By this signature, I attest that the above diagnosis is based upon my personal examination of the slides(and/or other material indicated in the diagnosis). ? Batsheva Lazo M.D. Report Electronically Reviewed and Signed Out By Batsheva Lazo M.D. 02/13/2024 11:59:13 ANTONIO Garrison (ASCP) Cervicovaginal Cytology (Pap Test) Disclaimer: The Pap test is a screening test used to detect cervical cancer and its precursors; it is not a diagnostic procedure. False negative and false positive results do occur. Pap test results should be interpreted in the context of pertinent clinical information and biopsy results as indicated. [facility] Clinical Laboratory Improvement Amendments (CLIA) mandate that cytologic and histologic results be correlated for laboratory quality assurance supervisor & improvement standards. ??FOR ALL HIGH-GRADE CASES we request submission of follow-up histological material and/or reports that have not been previously provided so that we may fulfill said required standards. ?? Gross Description A. ??Liquid based Thin Prep pap with HPV: ??Cervical/vaginal - Screening ThinPrep Clinical Diagnosis and History Last Menstrual Period: depo Menstrual History: Irregular Cycles Contraceptive History: Depo-Provera The patient is a 48 year old female with screening. Report Images and scanned documents, if included only viewable in PDF version The performance characteristics of some immunohistochemical stains, in-situ hybridization and fluorescence in-situ hybridization tests and immunophenotyping by flow cytometry cited in this report (if any) were determined by the Surgical Pathology Department at [facility] as part of an ongoing manufacturing quality engineer program and in compliance with federally mandated regulations drawn from the Clinical Laboratory Improvement Act of 1988 (CLIA '88). ??Some of these tests rely on the use of analyte specific reagents and are subject to specific labeling requirements by the US Food and Drug Administration. ??Such diagnostic tests may only be performed in a facility that is certified by the Department of Health and Human Services as a high complexity laboratory under CLIA '88. ??The FDA has determined that such clearance or approval is not necessary. ??This test is used for clinical purposes. ??It should not be regarded as investigational or for research. ??Nevertheless, federal rules concerning the medical use of analyte specific reagents require that the following disclaimer be attached to the report: This test was developed and its performance characteristics determined by the Surgical Pathology Department of [facility]. ??It has not been cleared or approved by the U. S. Food and Drug Administration. Carolyne Schroeder MD LAB CYTOLOGY ORDERABLES Final Result PATHOLOGY [facility] * (ABNORMAL) High Risk HPV DNA Detection with Genotyping (Molecular component) (02/01/2024 2:22 PM TONAL REGULATOR) HPV HR 16 Not Detected Not Detected [facility] Comment:Testing performed by : [facility], [address] [place] [address]., [id number] HPV HR 18 Not Detected Not Detected ELAYNE QIU Comment:Testing performed by : [facility], [address] [place]., [address] HPV HR Non 16/18 Detected(A) Not Detected ELAYNE QIU Comment: Interpretive Data Nucleic acid amplification for detection of high-risk Human Papilloma virus (HPV) is performed by the [facility] 6800 HPV test. ??This assay specifically detects HPV-16 and HPV-18 genotypes. ??The following HPV genotypes are detected as high-risk HPV: ?? HPV-31, 33, 35, ,39, 45, 51, 52, 56, 58, 59, 66, and 68. ??This assay has been approved by the [place] Food and Drug Administration for detection of HPV in cervical specimens collected by a physician using an endocervical brush/spatula or cervical broom and placed in the ThinPrep Pap Test PreservCyt collection containers. ??The performance characteristics of this test have been verified by the [facility] Infectious Disease laboratory. Correlate with separately reported cytology results, as applicable. Interpretive data last revised 22 Testing performed by: [facility], [address] [place]., [address] Endocervical 02/01/2024 2:22 PM TONAL REGULATOR 02/06/2024 10:35 AM TONAL REGULATOR Narrative ELAYNE QIU - 02/07/2024 3:05 AM TONAL REGULATOR Clinical history and diagnosis->screening Number of vials->1 Testing type->Screening Last menstrual period (date if known)->depo Menstrual status->Irregular Contraceptive use->Depo-provera Carolyne Schroeder MD LAB BODY FLUIDS AND STO OLS ORDERABLES Final Result ELAY[facility] [address] [facility] Department [place] [address] [facility] * Screening Mammogram Bilateral W Quintin (03/22/2023 10:20 AM TONAL REGULATOR) Anatomical Region Laterality Modality Breast Bilateral Mammography Impressions 03/22/2023 10:57 AM TONAL REGULATOR BI-RADS?? ATLAS category (overall): 1 - Negative There is no mammographic evidence of malignancy. A 1 year screening mammogram is recommended. The patient has been or will be contacted. We recommend annual screening mammography for women at average risk of breast cancer beginning at age 40, based on guidelines of the [employer] [employer] (ACR Practice Parameter for the Performance of Screening and Diagnostic Mammography) and [employer] [employer]. For women with and elevated risk of breast cancer, please refer to the ACR Practice Parameter for specific screening recommendations. The patient will be entered into a reminder system with a target due date of 1 year for her next screening exam. Narrative 03/22/2023 10:57 AM TONAL REGULATOR Screening Mammogram Bilateral W Quintin: 03/22/23 The study was acquired using full field digital technology and interpreted from soft copy. 2D digital mammographic views, as well as 3D digital tomosynthesis were performed in the CC, XCCL, and MLO projections. CLINICAL: ??Screening mammogram, encounter for. ??No relevant medical history has been documented for this patient. ??History of breast cancer in Neg Hx. COMPARISONS: 02/10/2022 Screening Mammogram Bilateral W Quintin 05/07/2019 Breast Imaging Screening Outside Reference 08/18/2018 Breast Imaging Diagnostic Outside Reference 08/18/2018 Breast Imaging US Outside Reference 01/17/2018 Breast Imaging Screening Outside Reference BREAST TISSUE: The breasts are extremely dense, which lowers the sensitivity of mammography. FINDINGS: No suspicious masses, suspicious calcifications, or other suspicious findings are seen within either breast. There has been no suspicious change. Juan Ace MD IMG MAMMO PROCEDURES Final Res ult from Last 3 Months or Most Recently Relevant to Health Maintenance Insurance [employer] Member Subscriber Plan / Payer (Ef fective 2021-Present) Name:Edel Aguila Relation to Subscriber:Spouse Name:Carter Aguila Date of :1978 (Home) Address: [address] [place] [address] Payer ID:[id number] (NAIC) Type:CIGNA HMO/PPO Address: [place] [id number] [employer] Care Teams Information Technology Internship Relationship Specialty Start Date End Date Juan Ace MD PCP - General Family Practice 12/14/21 Kalani Ace MD [address] [address] Resident Obstetrics and Gynecology 07/25/23
--- OUTSIDE RECORDS SUMMARY | 2024-03-25 10:32 | XMS_ITS | Data Portability ---
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 Discussed the various types of Infections and STIs, related symptoms and the potential consequences (including effects on fertility) of STI. Reviewed ways to limit exposure and prevention techniques. POC SureSwab Blood work [email or web address] Not available 05/17/2022 14:25:50 Plan of Treatment Reminders Order Date Submit Date Provider Last Modified By Organization Details Last Modified Time Details Appointments None record ed. Lab bacter ial vagino sis + vagini tis panel, vagina l 2021 [facility], [address] [place], [address], 07:20:17 HBsAg (hepat itis B surfac e Ag), serum 2021 [facility], [address] [facility], [place], [address], 13:47:16 HIV 1+2 Ab + HIV1 p24 Ag, quanti tative immuno assay, serum 2021 [facility], [address] [place], [address], 13:47:17 RPR (rapid plasma reagin ), serum 2021 [facility], [address] [place], [address], 13:47:17 hepati tis C virus Ab, serum 2021 [facility], [address] [place], [address], 13:47:16 cultur e, urine 2021 [facility], [address] [place], [address], 01:31:14 pregna ncy test, urine 2021 022 [email or web address] [facility], [address] [place], [address], 17:00:34 bacter ial vagino sis + vagini tis panel, vagina l 2022 023 [facility] Re[facility], [address] [place], [address], 3 14:22:51 unlist ed lab - STD screen ing ([facility]) 2022 023 [facility], [address] [place], [address], 3 13:15:19 pregna ncy test, urine 2022 023 [email or web address] [facility], [address] [place], [address], 10:29:12 hsv (1+2) igg, serum 2022 023 [facility], [address] [place], [address], 20:03:41 CT + NG DNA, PCR, unspec ified specim en 2022 023 [facility] Re[facility], [address] [place], [address], 09:38:23 HPV E6+E7 mRNA, qualit ative PCR, cervix 2022 023 [facility] [employer] Re[facility], [address] [place], [address], 16:55:17 pap, LB 2022 023 [facility], [address] [place], [address], 20:03:40 Referral None record ed. Procedures None record ed. Surgeries None record ed. Imaging None record ed. Medication Orders metron idazol e 500 mg tablet 2021 022 [id number], [address] [facility], [place], [place], [id number], 10:10:18 flucon azole 150 mg tablet 2021 022 [id number], [address] [facility], [place], [place], [id number], 10:10:12 Ortho Micron or 0.35 mg tablet 2021 022 [facility][id number], [address] [facility], [place], [place], [id number], 20:22:26 Patient TargetsNo targets recorded. Patient Instructions Encounter Date Encounter Id Patient Instructions Last Modified By Organization Details Last Modified Time 11/24/2021 [id number] vaginitis: care instructions [email or web address] Not available 11/24/2021 15:55:54 05/17/2022 [id number] exposure to sexually transmitted infections: care instructions [email or web address] Not available 05/17/2022 14:24:46 11/29/2022 [id number] A healthy lifestyle: care instructions [email or web address] Not available 11/29/2022 10:29:12 exercise program : getting started [email or web address] Not available 11/29/2022 10:29:12 eating healthy foods: care instructions [email or web address] Not available 11/29/2022 10:29:12 breast self-exam : care instructions [email or web address] Not available 11/29/2022 10:29:12 Reason for Referral None Reported. Results Created Date Observation Date Name Description Value Unit Range Abnormal Flag Note LastModifiedBy Organization Detail LastModifiedTime 11/27/1911/26/2021 HEPAT ITIS B SURFA CE ANTIG EN W/REF L CONFI RM hepatitis B surface antigen NON-RE ACTIVE non-re active normal Not Available [address] [address] [place], [address], 11/26/2021 13:47:16 11/27/19 22 11/26/2021 HEPAT ITIS C AB W/REF L TO HCV RNA, QN, PCR hepatitis C antibody NON-RE ACTIVE non-re active normal Not Available [address] [address] [place], [address], 11/26/2021 13:47:16 11/27/19 22 11/26/2021 HEPAT ITIS C AB W/REF L TO HCV RNA, QN, PCR index 0.02 <1.00 normal HCV antib cassidy was non-r eacti ve. There is no labor atory evide nce of HCV infec tion. In most cases , no furth er actio n is requi red. Howev er, if recen t HCV expos ure is suspe cted, a test for HCV RNA (test code 76189 ) is sugge sted. For addit ional infor matio n pleas e refer to http: //[facility].que stdia gnost ics.c om/fa q/FAQ 22v1 (This link is being provi ded for infor matio nal/ educa ashlee l purpo ses only. ) Not Available [employer] [facility] [address] [place], [address], 11/26/2021 13:47:16 11/27/19 22 11/26/2021 HIV 1/2 ANTIG EN/AN TIBOD Y,FOU RTH GENER ATION W/RFL HIV Ag/Ab, 4TH gen NON-RE ACTIVE non-re active normal HIV-1 antig en and HIV-1 /HIV- 2 antib odies were not detec shanta. There is no labor atory evide nce of HIV infec tion. PLEAS E NOTE: This infor matio n has been discl osed to you from recor ds whose confi denti ality may be prote cted by state law. If your state requi res such prote ction , then the state law prohi bits you from helga pathak furshama er discl osure of the infor matio n witho ut the speci fic writt en conse nt of the perso n to whom it perta ins, or as other michael permi tted by law. A gener al autho rizat ion for the relea se of medic al or other infor matio n is NOT suffi cient for this purpo se. For addit ional infor matio n pleas e refer to http: //[facility] yuan.que stdia gnost ics.c om/fa q/FAQ 106 (This link is being provi ded for infor matio nal/ educa ashlee l purpo ses only. ) The perfo rmanc e of this assay has not been clini eris valid ated in patie nts less than 2 years old. Not Available [employer] [facility] [address] [place], [address], 11/26/2021 13:47:17 11/27/19 22 11/26/2021 RPR (DX) W/REF L TITER AND CONFI RMATO RY TESTI NG RPR (DX) w/refl titer and confirmatory testing NON-RE ACTIVE non-re active normal NO COLLE CTION DATE RECEI HERIBERTO. WE HAVE USED THE DATE THE SPECI MEN WAS RECEI HERIBERTO BY THIS LABOR ATORY THE COLLE CTION DATE. IF THIS IS INCOR RECT, PLEAS E CONTA CT CLIEN T SERVI JENNIFER. PHONE NUMBE R: [phone] Not Available [employer] [facility] [id number] [place] [address], [address], 11/26/2021 13:47:17 11/25/19 22 11/26/2021 VAGIN ITIS PLUS STD PANEL bacterial vaginosis BV POS negati ve abnormal Not Available [address], [address], 11/27/2021 07:20:17 11/25/19 22 11/26/2021 VAGIN ITIS PLUS STD PANEL alvin species C. spp neg negati ve normal Not Available [address], [address], 11/27/2021 07:20:17 11/25/19 22 11/26/2021 VAGIN ITIS PLUS STD PANEL alvin glabrata C. gla neg negati ve normal Not Available [address], [address], 11/27/2021 07:20:17 11/25/19 22 11/26/2021 VAGIN ITIS PLUS STD PANEL trichomonas vaginalis CV/TV TRICH neg negati ve normal Not Available [address], [address], 11/27/2021 07:20:17 11/25/19 22 11/26/2021 VAGIN ITIS PLUS STD PANEL chlamydia trachomatis CT neg negati ve normal This repor t is inten ded for us in clini stephan monit oring and manag ement of kasie brenner. It is not inten ded for use in medic al-le gal appli catio n. Not Available [address], [address], 11/27/2021 07:20:17 11/25/19 22 11/26/2021 VAGIN ITIS PLUS STD PANEL neisseria gonorrhoeae GC neg negati ve normal This repor t is inten ded for us in clini stephan monit oring and manag ement of kasie brenner. It is not inten ded for use in medic al-le gal appli catio n. Not Available [address], [address], 11/27/2021 07:20:17 01/07/20 22 01/09/2022 CULTU RE, URINE , ROUTI NE culture, urine, routine SEE NOTE CULTU RE, URINE , ROUTI NE Micro Numbe r: [id number] Test Statu s: Final Speci men Sourc e: Urine Speci men Quali ty: Adequ ate Resul t: No Growt h Not Available [address] [address] [place], [address], 01/09/2022 01:31:11 01/07/20 22 01/06/2022 pregn shannan test, urine HCG positi ve Not Available [facility] [address] [place], [address], 01/06/2022 16:19:51 05/18/19 23 05/18/2022 STD SCREE GRAY ([facility] ) hep BS Ag Non-Re active non-re active normal Not Available [address], [address], 05/18/2022 13:15:19 05/18/19 23 05/18/2022 STD SCREE GRAY ([facility] ) hep C Ab Non-Re active non-re active normal Not Available [address], [address], 05/18/2022 13:15:19 05/18/19 23 05/18/2022 STD SCREE GRAY ([facility] ) HIV 1/2 Ag/Ab Non-Re active non-re active normal Not Available [address], [address], 05/18/2022 13:15:19 05/18/19 23 05/18/2022 STD MOOKE GRAY ([facility] ) syphilis Ab Non-Re active non-re active normal Not Available [address], [address], 05/18/2022 13:15:19 05/18/19 23 05/18/2022 VAGIN ITIS PLUS STD PANEL bacterial vaginosis BV neg negati ve normal Not Available [address], [address], 05/18/2022 14:22:51 05/18/19 23 05/18/2022 VAGIN ITIS PLUS STD PANEL alvin species C. spp POS negati ve abnormal Not Available [address], [address], 05/18/2022 14:22:51 05/18/19 23 05/18/2022 VAGIN ITIS PLUS STD PANEL alvin glabrata C. gla neg negati ve normal Not Available [address], [address], 05/18/2022 14:22:51 05/18/19 23 05/18/2022 VAGIN ITIS PLUS STD PANEL trichomonas vaginalis CV/TV TRICH neg negati ve normal Not Available [address], [address], 05/18/2022 14:22:51 05/18/19 23 05/18/2022 VAGIN ITIS PLUS STD PANEL chlamydia trachomatis CT neg negati ve normal This repor t is inten ded for us in clini stephan monit oring and manag ement of kasie brenner. It is not inten ded for use in medic al-le gal appli catio n. Not Available [address], [address], 05/18/2022 14:22:51 05/18/19 23 05/18/2022 VAGIN ITIS PLUS STD PANEL neisseria gonorrhoeae GC neg negati ve normal This repor t is inten ded for us in clini stephan monit oring and manag ement of patie nts. It is not inten ded for use in medic al-le gal appli catio n. Not Available [facility] [address] [place], [address], 05/18/2022 14:22:51 11/30/19 23 11/29/2022 CT/NG CT/NG merged to [id number] Not Available [facility] [address] [place], [address], 11/30/2022 09:38:23 11/30/1911/30/2022 CT/NG chlamydia trachomatis CT neg negati ve normal This repor t is inten ded for us in clini stephan monit oring and [facility]. It is not inten ded for use in medic al-le gal appli catio n. Not Available [facility] [address] [place], [address], 12/01/2022 16:55:17 11/30/19 23 11/30/2022 CT/NG neisseria gonorrhoeae GC neg negati ve normal This repor t is inten ded for us in clini stephan monit oring and manag ement of [facility]ie [facility]. It is not inten ded for use in medic al-le gal appli catio n. Not Available [facility] [address] [place], [address], 12/01/2022 16:55:17 11/30/19 23 12/01/2022 HPV HIGH RISK HPV high risk Negati ve negati ve normal The HPV High Risk assay is inten ded for use as co-te sting with cytol ogy and not as a subst itute for regul ar cervi stephan cytol ogy scree gray. This assay is not inten ded for use as a scree gray devic e for women under age 30 with farzana l cervi stephan cytol ogy. Not Available [facility] [address] [place], [address], 12/01/2022 16:55:17 11/30/1912/01/2022 THINP REP TIS PAP clinical information: normal None given Not Available [address] [address] [place], [address], 12/01/2022 20:03:40 11/30/1912/01/2022 THINP REP TIS PAP LMP: normal NONE GIVEN Not Available [address] [address] [place], [address], 12/01/2022 20:03:40 11/30/1912/01/2022 THINP REP TIS PAP prev. Pap: normal NONE GIVEN Not Available [address] [place], [address], 12/01/2022 20:03:40 11/30/1912/01/2022 THINP REP TIS PAP prev. BX: normal NONE GIVEN Not Available [address] [place], [address], 12/01/2022 20:03:40 11/30/1912/01/2022 THINP REP TIS PAP source: normal Cervi x Not Available [address] [place], [address], 12/01/2022 20:03:40 11/30/1912/01/2022 THINP REP TIS PAP statement of adequacy: normal Satis facto ry for evalu ation . Endoc ervic al/tr ansfo rmati on zone compo nent prese nt. Age and/o r menst rual statu s not provi ded Not Available [address] [address] [place], [address], 12/01/2022 20:03:40 11/30/19 23 12/01/2022 THINP REP TIS PAP interpretati on/result: normal Cytol ogy Resul ts: Negat david for intra epith elial lesio n or dorotamargie martinez . Not Available [address] [address] [place], [address], 12/01/2022 20:03:40 11/30/1912/01/2022 THINP REP TIS PAP comment: normal This Pap test has been evalu ated with compu toussaint techn ology . Not Available [address] [address] [place], [address], 12/01/2022 20:03:40 11/30/1912/01/2022 THINP REP TIS PAP cytotechnolo gist: normal LM, CT( CP) CT scree gray locat ion: [place] [address] [place] [address] Not Available [address] [address] [place], [address], 12/01/2022 20:03:40 11/30/1912/01/2022 THINP REP TIS PAP comment EXPLA NATOR Y NOTE: The Pap is a scree gray test for cervi stephan cance r. It is not a diagn ostic test and is subje ct to false negat david and false posit david resul ts. It is most relia ble when a satis facto ry sampl e, regul caleb obtai mary, is submi tted with relev ant clini stephan findi ngs and histo ry, and when the Pap resul t is evalu ated along with histo katherine and curre nt clini stephan infor matio n. Not Available [employer] [address] [address] [place], [address], 12/01/2022 20:03:40 11/30/1912/01/2022 HSV 1/2 IGG,T YPE SPECI FIC AB hsv 1 IgG, type specific Ab 28.00 index high Not Available [facility] [address] [address], [place], [address], 12/01/2022 20:03:41 11/30/19 23 12/01/2022 HSV 1/2 IGG,T YPE SPECI FIC AB hsv 2 IgG, type specific Ab <0.90 index normal Index Inter preta tion ----- ----- ----- ---- <0.90 Negat david 0.90- 1.09 Equiv ocal >1.09 Posit david This assay utili zes recom binan t type- speci fic antig ens to diffe renti ate HSV-1 from HSV-2 infec tions . A posit david resul t canno t disti nguis h betwe en recen t and past infec tion. If recen t HSV infec tion is suspe cted but the resul ts are negat david or equiv ocal, the assay shoul d be repea shanta in 4-6 weeks . The perfo rmanc e marine cteri stics of the assay have not been estab lishe d for pedia tric popul ation s, immun ocomp romis ed patie nts, or neona ayo scree gray. For addit ional infor wilbert esquivel e refer to http: //[facility] bolden.Que stDia gnost ics.c om/fa q/FAQ 118 (This link is being provi ded for infor matthew blair/ educa ashlee l purpo ses only. ) Not Available [facility] [address] [place], [address], 12/01/2022 20:03:41 11/30/19 23 11/29/2022 pregn shannan test, urine HCG negati ve Not Available [facility] [address] [place], [address], 11/29/2022 10:01:47 02/17/20 22 02/10/2022 MAMMO , scree gray, digit al, bilat eral No observ ation record ed. [email or web address] [facility] [address] [place], [address], 05/28/2022 17:29:19 Result Notes None recorded. Problems Name Problem SNOMED Code Status Onset Date Resolution Date Notes Provider Name and Address Organization Details Recorded Time Increase d frequenc y of urinatio n 835640223 Completed 201611/19/2016 Urinary frequenc y; Progress : Stable Added By: Emperatriz Lowery Add to Current Problems : NO ProblemS tatus: Resolve Frequenc y of micturit ion; Progress : Stable Added By: Emperatriz Lowery Add to Current Problems : NO ProblemS tatus: Resolve Not Available [facility] 2 20:58:55 Breast neoplasm screenin g NOS Completed 201712/19/2017 Screenin g for breast cancer, unspecif ied; Location : None Severity : Moderate Progress : Stable Added By: Andreia [place] Add to Current Problems : YES ProblemS tatus: Resolve Not Available [facility] 1 04:52:45 Subacute and chronic vaginiti s [id number] Completed 201505/12/2015 Subacute and chronic vaginiti s; Progress : Stable Added By: Yakelin Muñoz Add to Current Problems : NO ProblemS tatus: Resolve Not Available [facility] 2 20:58:54 Chlamydi al vulvovag initis [id number] Completed 201910/30/2019 Chlamydi al vulvovag initis; Progress : Stable Added By: Namrata Vasquez Add to Current Problems : NO ProblemS tatus: Resolve Not Available [facility] 2 11:02:40 Patient asked to attend [id number] Completed 201910/30/2019 Person consulti ng for explanat ion of examinat ion or test findings ; Progress : Stable Added By: Namrata Vasquez Add to Current Problems : NO ProblemS tatus: Resolve Not Available [facility] 2 11:02:40 Pain of breast [id number] Completed 201510/30/2019 Mastodyn ia; Progress : Stable Added By: Lucy Mendoza Add to Current Problems : NO ProblemS tatus: Resolve Not Available [facility] 2 20:58:53 Sampling of vagina for Papanico laou smear Completed 201801/19/2021 Encounte r for gynecolo gical examinat ion (general ) (routine ) without abnormal findings ; Severity : Moderate Progress : Stable Added By: Sylvia Ochoa Add to Current Problems : YES ProblemS tatus: Current Irma Win [address] [place], [address] , [email or web address] IV 3 09:56:44 Female genital organ symptoms [id number] Completed 201706/25/2017 Female pelvic pain; Location : None Progress : Stable Added By: Emperatriz Lowery Add to Current Problems : YES ProblemS tatus: Resolve Not Available [facility] 2 20:58:54 Acute vaginiti s 65050831 Completed 201701/19/2021 Acute vaginiti s; Severity : Moderate Progress : Stable Added By: Sylvia Ochoa Add to Current Problems : YES ProblemS tatus: Current Bacteria l vaginosi s; Location : None Severity : Moderate Progress : Stable Added By: Balwinder Meyer Add to Current Problems : YES ProblemS tatus: Resolve Irma Win [address] [place], [address] , [facility] 3 09:56:39 Syphilis test finding [id number] Completed 201601/19/2021 Encounte r for screenin g for infectio ns with a predomin antly sexual mode of transmis carlos; Severity : Moderate Progress : Stable Added By: Rashmi Brunson Add to Current Problems : YES ProblemS tatus: Current Roula holt, [facility] 2 16:16:54 Educatio n Completed 201901/19/2021 Encounte r for other general counseli ng and advice on contrace ption; Severity : Moderate Progress : Stable Added By: Yakelin Muñoz Add to Current Problems : YES ProblemS tatus: Current RUIZ [address] [place], [address] , [employer] [facility] IV 1 09:32:42 Breast neoplasm screenin g status [id number] Completed 201712/19/2017 Encounte r for other screenin g for malignan t neoplasm of breast; Progress : Stable Added By: Adnreia [place] Add to Current Problems : NO ProblemS tatus: Resolve Screenin g for breast cancer, unspecif ied; Location : None Progress : Stable Added By: Andreia [place] Add to Current Problems : YES ProblemS tatus: Resolve Not Available [facility] 2 20:58:53 Vaginola bial hernia Completed 201502/02/2016 Other specifie d noninfla mmatory disorder s of vagina; Progress : Stable Added By: Rachael Marin Add to Current Problems : NO ProblemS tatus: Resolve Vaginal Discharg e; Location : None Progress : Stable Added By: Rachael Marin Add to Current Problems : YES ProblemS tatus: Resolve Not Available [facility] 2 20:58:54 Leukorrh ea [id number] Completed 201706/25/2017 Vaginal Discharg e; Location : None Progress : Stable Added By: Andreia [place] Add to Current Problems : NO ProblemS tatus: Resolve Not Available [facility] 2 20:58:55 Uses combined oral contrace ption [id number] Completed 201502/06/2016 Encounte r for initial prescrip tion of contrace ptive pills; Severity : Moderate Progress : Stable Added By: Yakelin Muñoz Add to Current Problems : NO ProblemS tatus: Resolve Encounte r for surveill ance of contrace ptive pills; Severity : Moderate Progress : Stable Added By: Sylvia Ochoa Add to Current Problems : YES ProblemS tatus: Current; Start Date : 03/13/19 16 Roula Quinn [facility] 2 15:45:32 Uses contrace ption [id number] Completed 201505/12/2015 Contrace ptive maintena nce; Severity : Moderate Progress : Stable Added By: Yakelin Muñoz Add to Current Problems : NO ProblemS tatus: Resolve Not Available [facility] 1 04:52:47 Pelvic and perineal pain [id number] Completed 201901/19/2021 Pelvic and perineal pain; Severity : Moderate Progress : Stable Added By: Sylvia Ochoa Add to Current Problems : YES ProblemS tatus: Current RUIZ [address] [facility], [place], [address] , [facility] 1 09:32:27 Low back pain [id number] Completed 201611/19/2016 Low back pain; Progress : Stable Added By: Emperatriz Lowery Add to Current Problems : NO ProblemS tatus: Resolve Not Available [facility] 2 20:58:53 Candidal vulvovag initis [id number] Completed 201507/03/2015 Candidia sis, of vulva and vagina; Severity : Moderate Progress : Stable Added By: Kirk Arias Add to Current Problems : NO ProblemS tatus: Resolve Not Available [facility] 1 04:52:47 Vaginiti s and vulvovag initis Completed 201502/02/2016 Vagintiu s Unspecif ied; Severity : Moderate Progress : Stable Added By: Rachael Marin Add to Current Problems : NO ProblemS tatus: Resolve Vaginiti s; Severity : Moderate Progress : Stable Added By: Yakelin Muñoz Add to Current Problems : NO ProblemS tatus: Resolve; Start Date : 03/13/19 16 Not Available [facility] 1 04:52:47 Malaise and fatigue 333842506 Completed 201607/19/2018 Fatigue; Location : None Progress : Stable Added By: Azalia Araiza i Add to Current Problems : YES ProblemS tatus: Current Fatigue; Progress : Stable Added By: Azalia Araiza i Add to Current Problems : NO ProblemS tatus: Resolve Not Available [facility] 2 20:58:55 Vulvovag initis [id number] Completed 201502/02/2016 Other specifie d inflamma tion of vagina and vulva; Progress : Stable Added By: Rachael Marin Add to Current Problems : NO ProblemS tatus: Resolve Vagintiu s Unspecif ied; Location : None Progress : Stable Added By: Rachael Marin Add to Current Problems : YES ProblemS tatus: Resolve Not Available [facility] 2 20:58:56 At high risk of sexually transmit shanta infectio n [id number] Completed 201607/02/2016 STD Screenin g; Location : None Severity : Moderate Progress : Stable Added By: Emperatriz Lowery Add to Current Problems : YES ProblemS tatus: Resolve Not Available [facility] 1 04:52:48 Alvin infectio n of genital region Completed 201510/30/2019 Candidia sis of vulva and vagina; Progress : Stable Added By: Namrata Vasquez Add to Current Problems : NO ProblemS tatus: Resolve Not Available [facility] 2 20:58:52 Family planning educatio n done [id number] Completed 201502/06/2016 Family planning advice; Severity : Moderate Progress : Stable Added By: Yakelin Muñoz Add to Current Problems : NO ProblemS tatus: Resolve Not Available [facility] 1 04:52:48 Noninfla mmatory disorder of the vagina [id number] Completed 201901/19/2021 Noninfla mmatory disorder of vagina, unspecif ied; Severity : Moderate Progress : Stable Added By: Yakelin Muñoz Add to Current Problems : YES ProblemS tatus: Current RUIZ Trinidad [address] [facility], [place], [address] , [email or web address] IV 1 09:32:21 Screenin g for malignan t neoplasm of cervix Completed 201901/06/2022 Encounte r for screenin g for malignan t neoplasm of cervix; Progress : Stable Added By: Sylvia Ochoa Add to Current Problems : YES ProblemS tatus: Current Roula holt, [facility] IV 2 16:16:44 Vaginiti s and vulvovag initis Completed 201702/21/2018 Bacteria l vaginosi s; Progress : Stable Added By: Balwinder Meyer Add to Current Problems : NO ProblemS tatus: Resolve Vaginiti s; Progress : Stable Added By: Yakelin Muñoz Add to Current Problems : NO ProblemS tatus: Resolve; Start Date : 03/13/19 16 Not Available [facility] 2 20:58:53 Syphilis test finding [id number] Completed 201901/06/2022 Encounte r for screenin g for infectio ns with a predomin antly sexual mode of transmis carlos; Progress : Stable Added By: Rashmi Brunson Add to Current Problems : YES ProblemS tatus: Current STD Screenin g; Location : None Progress : Stable Added By: Emperatriz Lowery Add to Current Problems : YES ProblemS tatus: Resolve; Start Date : 05/04/19 17 Roula holt[place] - [facility] [place] 2 16:16:54 Candidia sis of vagina [id number] Completed 201507/03/2015 Candidia sis, of vulva and vagina; Location : None Progress : Stable Added By: Kirk Arias Add to Current Problems : YES ProblemS tatus: Resolve Not Available [facility] 2 20:58:54 Problem Notes None recorded. Procedures Surgical History Date Name Laterality Status Provider Name and Address Organization Details Recorded Time 0 Date of Last Pap Smear completed RUIZ Trinidad [facility] [place], [address], [facility] IV 01/09/2021 17:40:39 section completed RUIZ Trinidad [address] [place] [address], [phone], [facility] IV 01/09/2021 17:39:12 repair of umbilical hernia completed RUIZ Trinidad [address] [place] [address], [address], [facility] IV 01/09/2021 17:39:28 Imaging Results Imaging Date Name Status LastModified by [facility] Details LastModified Time 02/10/2022 MAMMO, screening, digital, bilateral completed [email or web address] [facility] [address], [address], 05/28/2022 17:29:19 Procedure Notes None recorded. Medical Equipment None Reported. Allergies No known drug allergies Medications Name Sig Start Date Stop Date Status Note LastModified by Organization Details LastModified Time cetirizin e 10 mg tablet TAKE 1 TABLET BY MOUTH EVERY DAY active Not Available Not Available No t Available azithromy stacey 250 mg tablet 11/29 completed Not Available Not Available Not Available Necon (28) 1 mg-35 mcg tablet Take 1 tablet(s ) by mouth daily as directed . 12/07 completed Necon 28 day 35mcg/1m g Tablet Allow Substitu tion: True Refill Denied: No For Problem: Contrace ptive maintena nce Not Available Not Available Not Available fluconazo le 150 mg tablet TAKE 1 TABLET BY MOUTH EVERY DAY FOR 1 DAY active Not Available Not Available No t Available benzonata te 200 mg capsule TAKE 1 CAPSULE BY MOUTH THREE TIMES DAILY NEEDED 11/24 completed Not Available Not Available Not Available promethaz ine 6.25 mg/5 mL oral syrup TAKE 10 ML BY MOUTH EVERY 6 HOURS NEEDED 11/29 completed Not Available Not Available Not Available metronida zole 0.75 % (37.5 mg/5 gram) vaginal gel INSERT 5G VAGINALL Y AT BEDTIME FOR 5 DAYS 11/29 completed Not Available Not Available Not Available famotidin e 40 mg tablet TAKE 1 TABLET BY MOUTH EVERY DAY active Not Available Not Available No t Available metronida zole 500 mg tablet TAKE 1 TABLET BY MOUTH TWICE DAILY 11/29 completed Not Available Not Available Not Available DOK 100 mg capsule TK 1 C PO BID DIRECTED 04/13 completed Not Available Not Available Not Available amitripty line 10 mg tablet 11/29 completed Not Available Not Available Not Available cephalexi n 500 mg capsule 11/29 completed Not Available Not Available Not Available omeprazol e 20 mg capsule,d elayed release TAKE 1 CAPSULE BY MOUTH EVERY DAY active Not Available Not Available No t Available ergocalci ferol (vitamin D2) 1,250 mcg (50,000 unit) capsule TAKE 1 CAPSULE BY MOUTH EVERY WEEK active Not Available Not Available No t Available norethind breanna (contrace ptive) 0.35 mg tablet Take 1 tablet(s ) every day by oral route. active Not Available Not Available No t Available dicyclomi ne 10 mg capsule TAKE 1 CAPSULE BY MOUTH THREE TIMES DAILY BEFORE MEALS active Not Available Not Available No t Available Microgest in Fe () 1.5 mg-30 mcg (21)/75 mg (7) tablet 1 tab PO daily; skip placebo pills at end of pack and start next pack early 01/19 completed Microges tin Fe () 1.5 mg-30 mcg (21)/75 mg (7) oral tablet RxNorm: [id number] Allow Substitu tion: True Refill Denied: No Edited by: Jeri Elliott ) on 09/25/19 20 Stopped by: Jeri Elliott ) on Not Available Not Available Not Available azithromy stacey 500 mg tablet TAKE 1 TABLET BY MOUTH EVERY DAY FOR 3 DAYS 11/29 completed Not Available Not Available Not Available cyclobenz aprine 5 mg tablet 11/29 completed Not Available Not Available Not Available 03/12 () 1 mg-20 mcg (21)/75 mg (7) tablet Take 1 tablet(s ) by mouth daily as directed - to skip placebo pills 05/03 completed 03/12 28 Day 20mcg/1m g/75mg Tablet Allow Substitu tion: True Refill Denied: No Not Available Not Available Not Available nitrofura ntoin monohydra te/macroc rystals 100 mg capsule TAKE 1 CAPSULE BY MOUTH EVERY 12 HOURS FOR 5 DAYS 04/13 completed Not Available Not Available Not Available amoxicill in 05/02 completed Amoxicil alexandr Allow Substitu tion: True Refill Denied: No Refill DateOccu rred: 03/13/19 16 Not Available Not Available Not Available Diflucan 1 p.o. now 12/09 completed Diflucan 150mg Tablet RxNorm: [id number] Allow Substitu tion: True Refill Denied: No Not Available Not Available Not Available multivita min active Not Available Not Available Not Available Vitals Date Recorded Body height Provider Name an d Address Organization Details Last Updated DateTime 11/24/2021 170.18 cm Roula [place]insch [place] [facility] 11/24/2021 15:42:49 Date Recorded Body mass index (BMI) Body weight Provider Name and Address Organization Details Last Updated DateTime 11/24/2021 24.9 kg/m2 46788.19 g Roula [place] [facility] 11/24/2021 15:43:06 Date Recorded Body temperature Provider Name a nd Address Organization Details Last Updated DateTime 11/24/2021 98.2 [degF] Roula [place] [facility] 11/24/2021 15:43:11 Date Recorded Body height Provider Name an d Address Organization Details Last Updated DateTime 01/06/2022 170.18 cm Roula [place]insch [place] [facility] 01/06/2022 16:08:07 Date Recorded Body mass index (BMI) Body weight Provider Name and Address Organization Details Last Updated DateTime 01/06/2022 25.7 kg/m2 59560.59 g Roula [place] [facility] 01/06/2022 16:09:30 Date Recorded Body temperature Provider Name a nd Address Organization Details Last Updated DateTime 01/06/2022 97.7 [degF] Roula [place] [facility] 01/06/2022 16:15:16 Date Recorded Body height Provider Name an d Address Organization Details Last Updated DateTime 01/19/2022 170.18 cm Tramea Lucy [place] [facility] 01/19/2022 16:59:02 Date Recorded Body mass index (BMI) Body weight Provider Name and Address Organization Details Last Updated DateTime 01/19/2022 25.7 kg/m2 46374.43 g Tramea Lucy [place] [facility] 01/19/2022 16:59:22 Date Recorded Body temperature Provider Name a nd Address Organization Details Last Updated DateTime 01/19/2022 97 [degF] [place] [place] [facility] 01/19/2022 16:59:27 Date Recorded Body height Provider Name an d Address Organization Details Last Updated DateTime 05/17/2022 170.18 cm Darnishejarrodae Jordyn [place] [facility] IV 05/17/2022 14:05:49 Date Recorded Body mass index (BMI) Body weight Provider Name and Address Organization Details Last Updated DateTime 05/17/2022 25.8 kg/m2 85192.74 g Bianca [place] [facility] [place] 05/17/2022 14:06:06 Date Recorded Body temperature Provider Name a nd Address Organization Details Last Updated DateTime 05/17/2022 98.2 [degF] Bianca [place] [facility] IV 05/17/2022 14:06:28 Date Recorded Body height Provider Name an d Address Organization Details Last Updated DateTime 11/29/2022 170.18 cm Namrata Tang [place] [facility] IV 11/29/2022 10:08:54 Date Recorded Body mass index (BMI) Body weight Provider Name and Address Organization Details Last Updated DateTime 11/29/2022 25.5 kg/m2 72760.56 g Namrata Tang [place] [facility] [place] 11/29/2022 10:09:23 Date Recorded Systolic blood pressure Diastolic blood pressure Provider Name and Address Organization Details Last Updated DateTime 11/24/2021 118 mm[Hg] 62 mm[Hg] [facility] IV 11/24/2021 15:44:13 Date Recorded Systolic blood pressure Diastolic blood pressure Provider Name and Address Organization Details Last Updated DateTime 01/06/2022 126 mm[Hg] 70 mm[Hg] Roula Aminsch [place] [facility] [place] 01/06/2022 16:15:24 Date Recorded Systolic blood pressure Diastolic blood pressure Provider Name and Address Organization Details Last Updated DateTime 01/19/2022 100 mm[Hg] 62 mm[Hg] Min Ayala [place] [facility] [place] 01/19/2022 16:59:12 Date Recorded Systolic blood pressure Diastolic blood pressure Provider Name and Address Organization Details Last Updated DateTime 05/17/2022 100 mm[Hg] 80 mm[Hg] Bianca [place] [facility] [place] 05/17/2022 14:10:24 Date Recorded Systolic blood pressure Diastolic blood pressure Provider Name and Address Organization Details Last Updated DateTime 11/29/2022 130 mm[Hg] 72 mm[Hg] Namrata Tang [email or web address] IV 11/29/2022 10:13:35 Social History Question Answer Notes LastModified by Organizat ion Details LastModified Time Tobacco Smoking Status Never Smoker Mary Jo Delvalle null, [email or web address] IV 01/19/2021 09:28:23 What Is Your Level Of Alcohol Consumption? Occasional Information not available 01/19/2021 Are You Blind Or Do You Have Difficulty Seeing? No Information not available 04/13/2021 Are You Deaf Or Do You Have Serious Difficulty Hearing? No Information not available 04/13/2021 What Type Of Diet Are You Following? REGULAR Information not available 04/13/2021 How Many Children Do You Have? 3 Information not available 01/19/2021 What Is Your Relationship Status? Information not available 01/19/2021 Are You Sexually Active? Yes Information not available 01/19/2021 Do You Use Any Illicit Or Recreational Drugs? No Information not available 04/13/2021 Do You Or Have You Ever Used Any Other Forms Of Tobacco Or Nicotine? No [email or web address] Information not available 07/03/2021 Sex: Female Functional Status Question Answer Note LastModified by Organizat ion Details LastModified Time What is your exercise level? Occasional Information not available 04/13/2021 Mental Status None recorded. Family History Relationship Description Onset Age of this Age Resolved Age Notes LastModified by Organization Details LastModified Time Paternal Grandmother Diabetes mellitus Not available 12/23 09:27:33 Father Diabetes mellitus Not available 12/23 09:27:33 Father Hypertensive disorder Not available 12/23 09:27:49 Maternal Grandmother Hypertensive disorder Not available 12/23 09:27:49 Sister Malignant tumor of thyroid gland Not available 12/23 09:28:05 Medical History Condition Response Other Cancer N High Blood Pressure N Colon Cancer N Cytomegalovirus N Hyperthyroidism N MRSA N Herpes (HSV) N Breast Cancer N Blood Transfusion N Lung Cancer N Depression N Hypothyroidism N Incontinence N Panic Attacks N Neurological Disorder N Deep Vein Thrombosis N Anxiety Disorder N Autoimmune disease N Arthritis N Tuberculosis/Positive PPD N Shingles N Polycystic Ovarian Syndrome N Cervical Cancer N Hematuria N Chlamydia N Stroke N Varicosities N Seasonal allergies N Crohn's Disease N Alzheimer's/Dementia N COPD/Emphysema N Endometriosis N HPV/Genital Warts N IBS (Irritable Bowel Syndrome) N History of Abnormal Pap N High Cholesterol N Liver Disease N Kidney Infection N Fibromyalgia N Ulcer N Kidney Disease N HIV N Gallbladder disease N Sickle Cell Disease/Trait N Von Willebrand disease N ADD/ADHD N Eating Disorder N Anemia N Diabetes Mellitus (non-insulin dependent ) N Multiple Sclerosis N Ovarian Problems N Gonorrhea N Frequent Urinary Tract infections N Osteopenia N Headaches/migraines N GERD (reflux) N Ovarian Cancer N Diabetes (insulin dependent) N Seizures/Epilepsy N Fibroids N Asthma N Heart Attack N Lupus N Endometrial Cancer N Rubella N Blood Clotting Disorder N Bipolar Disorder N Diabetes Mellitus (during ) N Ulcerative Colitis N Hepatitis N Heart Disease N Pulmonary Embolism N RPR N Chicken Pox N Osteoporosis N Gynecological History Statement/Question Response Date of LMP 11/22/2022 HPV Vaccine N Date of Last Pap Smear 11/27/2019 Most Recent Mammogram Current Control Method BCPs Age at Menarche 14 Obstetrics History GPAL:G 6 P 3 0 3 3 Type Value Multiple Births 0 Full Term 3 Induced 0 Spontaneous 3 Premature 0 Living 3 Ectopics 0 Total 6 Past Encounters Encounter ID Performer Location Encounter Start Date Encounter Closed Date Diagnosis/Indication Diagnosis SNOMED-CT Code Diagnosis ICD10 Code Diagnosis Note [id number] RUIZ Trinidad [facility] [address] [place] [address] 01/19/2021 09:13:10 01/29/2021 10:44:14 Gynecologic examination 58993676 Z01.419 ASCCP guidelines reviewed with patient. Pap Hx: 10/2016 NILM, HPV neg, 11/2019 NILM, HPV neg. No pap collected today. Pt states understand ing and is amenable to POC. Surveillan ce of contraception 916982618 Z30.40 Pt educated on all available contracept david options. Pt declines interest in initiating hormonal contracept david method at this time. Pt encouraged to use condoms and take PNV daily. Pt to notify HCP if desires hormonal contracept david initiation in the future. Pt states understand ing of POC. Screening for malignant neoplasm of breast 331294545 Z12.31 Pt educated on breast cancer screening guidelines , and discussed recommenda tion for scheduling imaging at hospital of her choice. Reviewed recommenda tion to have imaging done at same facility if possible as previous screenings . Pt states understand ing of POC. Venereal d isease screening 345110069 Z11.3 N89.9 Pt educated on importance of condom use for protection against STD's. Samples collected and sent. Further POC pending lab result review. Pt states understand ing of POC. [id number] RUIZ Lares [facility] [address] [place] [address] 04/13/2021 10:43:58 04/13/2021 12:05:10 Menstrual period late 87420465 N92.6 Reviewed menstrual cycle and possible reasons why period may be late. Advised to keep menstual diary. RTC as needed. [id number] MARIA ALEJANDRA JOHNS MD [facility] [address] [place] [address] 07/03/2021 16:13:24 10/08/2021 13:26:17 Vaginal discharge 312782793 N89.8 N76.0 Increased frequency of urination 276920446 R35.0 [id number] Eusebia Coe CNM [facility] [address] [place] [address] 11/24/2021 15:36:25 11/24/2021 16:37:13 Vaginal discharge 593170697 N89.8 N76.0 Venereal d isease screening 320305915 Z11.3 [id number] RUIZ Lares [facility] [address] [place] [address] 01/06/2022 15:29:21 01/07/2022 09:33:02 Menstrual period late 49047382 N92.6 *UPT (+)*by LMP of 12/03/2021 , 4.6 weeks gestation* 46 yo *nyla shah N/V, abd. pain, vaginal bleeding, or other complaints *PMH significan t for intracrani al hemorrhage (2020); voices concerns re. hx and AMA and wants to discuss risks during ; she is considerin g terminatio n if her risks are too high- MF referral initiated to discuss*Sc hedule visit with US to confirm * SAB precaution s Pain in pelvis 04508688 R10.2 [id number] YUDY NUGENT, [facility] [address] [place] [address] 01/19/2022 16:25:54 01/21/2022 14:28:56 Complete miscarriage 702221019 O03.9 46 yo s/p SAB. -ED demonstrat ed decreasing hcg and patient's bleeding has stopped-Wi ll not proceed with hcg levels as symptoms resolved. If she resumes bleeding within the next week similar to period or she has signs of infection she should be seen in the ER Initial pr escription of oral contraception 210436346 Z30.011 Patient with h/o brain bleeding 18 months ago -Will proceed with progestero ne only pills [id number] RUIZ MORE[facility] [address] [place] [address] 05/17/2022 13:51:06 05/18/2022 13:54:28 Vaginal discharge 502068818 N89.8 N76.0 Venereal d isease screening 620802443 Z11.3 [id number] RUIZ Mclaughlin [facility] [address] [place] [address] 11/29/2022 09:51:39 11/29/2022 10:40:02 Gynecologic examination 11467393 Z01.419 47y.o. here for annual exam.- Pap today . Discussed natural course of HPV infection, ASCCP guidelines .- Routine labs done with PCP- Mammo UTD - RTO for annual or PRN Screening for malignant neoplasm of cervix 584454512 Z12.4 ASCCP guidelines reviewed with pt. Pap collected and sent. Further POC pending lab result review. Pt states understand ing of POC. Depression screening 171 957926 Z13.31 PHQ9: Negative. Pt educated on normal scoring. No further management needed. Screening mammography of bilateral breasts 4597833503 99950 Z12.31 Client advised to perform self-breas t exams and report any changes. Irregular periods 121465 07 N92.6 Patient would like to consider BTL Venereal d isease screening 898726822 Z11.3 Discussed the various types of STDs, related symptoms and the potential consequenc es (including effects on fertility) of STD infections . Reviewed ways to limit exposure and prevention techniques . Health Concerns Section Related Observation LastModified by Organization Detai ls LastModified Time None Recorded Concern Status LastModified by Organization Details LastModified Time None Recorded Advance Directives Directive None Recorded Payers Encounter Date Sequence Insurance Name Policy Number Policy [place] Covered Member ID Palomino Member ID Guarantor Name 11/24/2021 1 [facility] [id number] Carter L Pembina [id number] Minilogsta L Pembina 01/06/2022 1 [facility] - [employer] [id number] Carter L Opener Ver[employer] [id number] Kenyata L Pembina 01/19/2022 1 [facility] [id number] Carter L Opener [employer] [id number] Kenyata L Opener [employer] 05/17/2022 1 [facility] - [employer] [id number] Carter L [place] [id number] Kenyata L [place] 11/29/2022 [facility] [id number] Carter L Opener [employer] [id number] Minilogsta L Opener [employer] Notes Date Note Type Note Provider Name and Address Organization Details Recorded Time 2 text/html Vaginal/Vulvar ProblemReported bypatient.Location:vagina Quality:itching; burning; irritation Context:sexually active Alleviating Factors:none Aggravating Factors:none Associated Symptoms:no vaginal pain; no vulvar swelling/erythema; no vulvar pain; no vulvar lesions; no pelvic pain; no dyspareunia; no dysuria; no fever; no abdominal pain;vaginal itching;vaginal irritation;vulvar itching/irritationNotes:s ome discharge more then normal sometimes it is white sometimes yellowHx of BV Eusebia Coe, CNM [address] [facility], [place], [address], [facility] [facility] 11/24/2021 16:07:11 2 text/html Menstrual IrregularityReported bypatient.Premenopause:LM 12/03/2021; no contraception use and sexually active Edel presents with c/o a missed period. UPT at home was (+). She has a h/o intracranial hemorrhage. She is unclear about the cause. RUIZ Lares [facility] [place], [address], [facility] IV 01/09/2022 09:30:57 2 text/html Patient is here for miscarriage went to ER at [facility] blood levels went down, patient is here for follow up Found out she was 01/05. Pt started bleeding 01/13, was seen in ER and hcg levels have been trended and decreased. Bleeding has since stopped today. YUDY NUGENT, [address] [facility], [place], [address], [facility] IV 01/20/2022 20:22:39 3 text/html Vaginal/Vulvar ProblemReported bypatient.Location:vagina Quality:itching; irritation Severity:mild Context:sexually active Alleviating Factors:none Aggravating Factors:none Associated Symptoms:vaginal itching;vaginal irritation Patient thinks she could possibly have B.V. FRANKIE BRIONES, RUIZ-BC [facility] [place], [address], [email or web address] IV 05/17/2022 14:26:11 3 text/html Annual GYNReported bypatient.Menstrual cycle:Irregular cycle intervals Urinary symptoms:No hematuria; No incontinence Vulva:No genital lesion Vagina:Normal vaginal discharge Breast:No breast pain; No breast lump; No nipple discharge Sexual complaints:No sexual complaints; No pain during intercourse; Normal libido Menopausal Symptoms:No menopausal symptoms; Normal vaginal lubrication Psychological symptoms:No depression; No anxiety; No PMDD Edel is here for her AEX as well as c/o light menses on her OCP. At times they are not every 28daysHer LMP was November, irregular patient is unsureHer last pap was 11/27/19Her current BCM is SARA'Collin last mammogram was he requests STI testing RUIZ Mclaughlin [address] [facility], [place], [address], [facility] 11/29/2022 10:56:58 OBGyn Episode No OBEpisode recorded.
--- OUTSIDE RECORDS SUMMARY | 2024-03-25 10:32 | XMS_ITS | Referral Summary ---
Author Organization [facility] Address [address] [place] [phone] Care Team Providers Care Document Scanner Name Role Phone Juan Ace MD Primary Care Provider [phone] Kalani Ace MD Unavailable [phone] Encounters Date Type Department Care Team Description 03/21/2024 Telephone [facility] Obstetrics and Gynecology [facility] 7th Floor [address] [place] [phone] Mina Nolan RN Abnormal Uterine Bleeding 03/16/2024 6:04 PM REVENUE CYCLE ADMINISTRATOR - 03/16/2024 11:59 PM REVENUE CYCLE ADMINISTRATOR Hospital Encounter [facility] PATHOLOGY [address] [facility] 3rd [place] [address] Discharge Disposition: Discharge to home or self care 03/16/2024 1:30 PM REVENUE CYCLE ADMINISTRATOR Procedure visit [facility] Obstetrics and Gynecology [address] [place] [address] Floor [address] [place] [phone] Carolyne Schroeder MD Atypical squamous cells of undetermined significance (ASCUS) on Papanicolaou smear of cervix (Primary Dx); Surveillance for Depo-Provera contraception; Adenomyosis 03/14/2024 1:00 PM REVENUE CYCLE ADMINISTRATOR Ancillary Procedure [facility] Obstetrics and Gynecology [address] [place] [address] [place] [phone] Abnormal uterine bleeding (AUB) 03/09/2024 2:40 AM REVENUE CYCLE ADMINISTRATOR - 03/09/2024 6:04 AM REVENUE CYCLE ADMINISTRATOR Emergency [facility] Emergency Department [address] [place] [phone] Apryl Mazariegos MD Acute on chronic back pain (Primary Dx); Cervical radiculopathy Discharge Disposition: Discharge to home or self care 02/17/2024 Telephone [facility] Obstetrics and Gynecology [address] [facility] 7th Floor [address] [place] [address] Magalie Blood RN Test Results 02/01/2024 5:27 PM REVENUE CYCLE ADMINISTRATOR - 02/01/2024 11:59 PM REVENUE CYCLE ADMINISTRATOR Hospital Encounter [facility] Lab [address] [place] [address] Cervical cancer screening Discharge Disposition: Discharge to home or self care 02/01/2024 2:00 PM REVENUE CYCLE ADMINISTRATOR Office Visit [facility] Obstetrics and Gynecology [address] [facility] [address] [place] [phone] Carolyne Schroeder MD Encounter for annual routine gynecological examination (Primary Dx); Encounter for screening for malignant neoplasm of breast, unspecified screening modality; Cervical cancer screening; Abnormal uterine bleeding (AUB); Encounter for screening for infections with predominantly sexual mode of transmission; Encounter for general counseling and advice on contraceptive management; Personal history of subarachnoid hemorrhage; Vaginal discharge 01/06/2024 10:15 AM REVENUE CYCLE ADMINISTRATOR Clinical Support [facility] Clinic [address] [facility] 3rd Floor [address] [place] [phone] Depo-Provera contraceptive status (Primary Dx) from Last 3 Months Allergies No known active allergies Medications omeprazole [...] every 4-6 hours by inhalation route. 09/03/19 Active azithromycin (ZITHROMAX) 250 mg tablet TAKE [...] tablet twice a day by oral route. 07/13/20 22 Active lubiprostone (Amitiza) 24 mcg capsule [...] Ended Active Problems No known active problems Immunizations Name Administration Dates Next Due Hep A, Adult 11/27/2009,08/31/2002 Hep B Vaccine 11/27/2009,10/25/2008,08/16/2008 Influenza, Quadrivalent, Spl it, Pediatric, Preservative Free, Intramuscular 01/09/2019 Influenza, Unspecified 12/14/2022 MMR 11/27/2009,11/30/1991 Td, adsorbed 11/27/2009,11/30/1991 Varicella 11/27/2009 Social History Tobacco Use Types Packs/Day Years [...] on file Legal Sex Female 6:11 PM REVENUE CYCLE ADMINISTRATOR Gender Identity Not on file Sexual Orientation Not on file Occupation Industry Job Start Date Job End Date [employer] Not on file Not on file Not on file Last Filed Vital Signs Vital Sign Reading Time Taken Comments Blood Pressure 145/90 03/16/2024 1:13 PM REVENUE CYCLE ADMINISTRATOR Pulse 71 03/09/2024 5:45 AM REVENUE CYCLE ADMINISTRATOR Temperature 36.9 ??C (98.4 ??F) 03/09/2024 5:45 AM CS T Respiratory Rate 18 03/09/2024 5:45 AM REVENUE CYCLE ADMINISTRATOR Oxygen Saturation 100% 03/09/2024 5:45 AM REVENUE CYCLE ADMINISTRATOR Inhaled Oxygen Concentration - - Weight 72.6 kg (160 lb) 03/16/2024 1:13 PM REVENUE CYCLE ADMINISTRATOR Height 170.2 cm (5' 7 ) 03/16/2024 1:13 PM REVENUE CYCLE ADMINISTRATOR Body Mass Index 25.06 03/16/2024 1:13 PM REVENUE CYCLE ADMINISTRATOR Plan of Treatment Not on file Procedures Procedure Name Priority Date/Time Associated Diagnosis Comments SURGICAL PATHOLOGY Routine 03/16/2024 2: 07 PM REVENUE CYCLE ADMINISTRATOR US PELVIS COMPLETE Schedule Routine, Read Routine (OP Routine) 03/14/2024 12:51 PM REVENUE CYCLE ADMINISTRATOR Abnormal uterine bleeding (AUB) ECG 12-LEAD STAT 03/09/2024 4:59 AM REVENUE CYCLE ADMINISTRATOR EGFR STAT 03/09/2024 4:47 AM REVENUE CYCLE ADMINISTRATOR DIFFERENTIAL AUTO STAT 03/09/2024 4:4 7 AM REVENUE CYCLE ADMINISTRATOR TROPONIN T HIGH-SENSITIVITY SERIES (BASELINE, 2HR, 4HR, 6HR) STAT 03/09/2024 4:47 AM REVENUE CYCLE ADMINISTRATOR COMPREHENSIVE METABOLIC PANEL STAT 03/09/2024 4:47 AM REVENUE CYCLE ADMINISTRATOR CBC WITH AUTO DIFFERENTIAL STAT 03/09/2024 4:47 AM REVENUE CYCLE ADMINISTRATOR XR CHEST PA LATERAL 2 VIEWS ED 03/09/2024 4:38 AM REVENUE CYCLE ADMINISTRATOR POCT HCG, URINE Routine 03/09/2024 3:23 AM REVENUE CYCLE ADMINISTRATOR SURESWAB(R), CT/NG, T VAGINALIS Routine 02/01/2024 2:56 PM REVENUE CYCLE ADMINISTRATOR Encounter for screening for infections with predominantly sexual mode of transmission POCT SANTA PREP YEAST/FUNGUS Routine 02/01/2024 2:53 PM REVENUE CYCLE ADMINISTRATOR Vaginal discharge POCT VAGINAL PH Routine 02/01/2024 2:53 PM REVENUE CYCLE ADMINISTRATOR Vaginal discharge POCT WET PREP Routine 02/01/2024 2:53 PM REVENUE CYCLE ADMINISTRATOR Vaginal discharge PAP AND HIGH RISK HPV, REFLEX TO GENOTYPING Routine 02/01/2024 2:52 PM REVENUE CYCLE ADMINISTRATOR Cervical cancer screening HIGH RISK HPV DNA DETECTION WITH GENOTYPING Routine 02/01/2024 2:22 PM REVENUE CYCLE ADMINISTRATOR Cervical cancer screening SCREENING MAMMOGRAM BILATERAL W QUINTIN Schedule Routine, Read Routine (OP Routine) 03/22/2023 10:20 AM REVENUE CYCLE ADMINISTRATOR Screening mammogram, encounter for from Last 3 Months or Most Recently Relevant to Health Maintenance Results * Surgical pathology (03/16/2024 2:07 PM REVENUE CYCLE ADMINISTRATOR) Endometrial biopsy 2:07 PM REVENUE CYCLE ADMINISTRATOR 03/16/2024 3:59 PM REVENUE CYCLE ADMINISTRATOR Narrative 03/19/2024 11:48 AM REVENUE CYCLE ADMINISTRATOR EPIC results best viewed via link to PDF [facility] [place] [address] Note to Patients: This report may contain [...] ??F : ??1975 (Age: 48) Address: ??[address] [place] [address] ??[phone] Hospital #: ??[id number] Taken:03/16/2024 Received:03/16/2024 Reported: 03/19/2024 Patient Type: [facility] [...] Surgical Pathology and Flow Cytometry Departments at [facility] as part of an ongoing quality assurance director program and in compliance with federally mandated [...] Surgical Pathology and Flow Cytometry Departments of [facility]. ??It has not been cleared or approved by the U. S. Food and Drug Administration. IMAGES AND SCANNED DOCUMENTS, IF INCLUDED, ONLY VIEWABLE IN PDF VERSION OF REPORT Carolyne Schroeder MD LAB PATHOLOGY ORDERABLE S Final Result * US Pelvis Complete (03/14/2024 12:51 PM REVENUE CYCLE ADMINISTRATOR) Cul de Sac No free fluid visualized [facility] Endometrial Thickness 4.0 mm&millim eters [facility] Anatomical Region Laterality Modality Pelvis N/A Ultrasound 03/14/2024 12:5 4 PM REVENUE CYCLE ADMINISTRATOR Impressions 03/14/2024 1:17 PM REVENUE CYCLE ADMINISTRATOR 1- Enlarged uterus with suspected adenomyosis. 2- Normal appearing ovaries 3- No adnexal masses are identified. Narrative Procedure Note Juan Coles MD - 03/14/2024 IMPRESSION: 1- Enlarged uterus with suspected adenomyosis. 2- Normal appearing ovaries 3- No adnexal masses are identified. Carolyne Schroeder MD IMG US PROCEDURES Final Result * ECG 12 lead (03/09/2024 4:59 AM REVENUE CYCLE ADMINISTRATOR) Ventricular Rate EKG/Min 62 BPM [facility] Atrial Rate 62 BPM [facility] MA-Interval (MSEC) 154 ms [facility] QRS-Interval (MSEC) 86 ms [facility] QT-Interval (MSEC) 420 ms [facility] QTc 426 ms [facility] P [place] 35 degrees [facility] R [place] 59 degrees [facility] T [place] 39 degrees [facility] Diagnosis Normal sinus rhythm Normal ECG When compared with ECG of 29-OCT-2006 21:47, No significant change was found Confirmed by GITA NELSON M.D. ([id number]) on 03/10/2024 12:54:43 PM [facility] 03/09/2024 4:59 AM REVENUE CYCLE ADMINISTRATOR 03/10/2024 12:54 PM REVENUE CYCLE ADMINISTRATOR Apryl Mazariegos MD ECG ORDERABLES Final Re sult Performing Organization Address [facility] de Phone Number [facility] * Troponin T high-sensitivity series (baseline, 2hr, 4hr, 6hr) (03/09/2024 4:47 AM REVENUE CYCLE ADMINISTRATOR) Trop T hs <6 <=14 ng/L Comment: Interpretive Data For further hscTnT resources including the diagnostic algorithm and an aid in interpretation, copy and paste this link: https://nrl.testcatalog.org/show/hsTrop Current Interpretive Data last revised 2019. Testing performed by: [facility], [address] [place] [address]., [id number] Blood 03/09/2024 4:47 AM REVENUE CYCLE ADMINISTRATOR 03/09/2024 4:50 AM REVENUE CYCLE ADMINISTRATOR Apryl Mazariegos MD LAB BLOOD ORDERABLES Fin al Result Performing Organization Address [facility] de Phone Number [facility] [address] [facility] Department [place] [address] * eGFR (03/09/2024 4:47 AM REVENUE CYCLE ADMINISTRATOR) Pathologist [facility] eGFR >90 >=60 mL/min/1. 73 m2 Comment: [...] was last reviewed 2020. Testing performed by: [address] [address] Blood 03/09/2024 4:47 AM REVENUE CYCLE ADMINISTRATOR 03/09/2024 4:50 AM REVENUE CYCLE ADMINISTRATOR us Apryl Mazariegos MD LAB BLOOD ORDERABLES Fin al Result [facility] [place] [address] * Differential, auto (03/09/2024 4:47 AM REVENUE CYCLE ADMINISTRATOR) Neutrophil abs 2.8 1.5 - 6.5 K/cumm Comment:Testing performed by : [address] [address] Imm gran abs 0.0 0.0 - 0.1 K/cumm [facility] Comment:Testing performed by : [address] [address] Lymphocyte abs 3.0 0.8 - 3.3 K/cumm [facility] Comment:Testing performed by : [address] [address] Monocyte abs 0.4 0.2 - 0.8 K/cumm [facility]NE Comment:Testing performed by : [address] [address] Eosinophil abs 0.2 0.0 - 0.5 K/cumm [facility] Comment:Testing performed by : [address] [address] Basophil abs 0.0 0.0 - 0.1 K/cumm [facility] Comment:Testing performed by : [address] [address] Neutrophil pct 43.7 % CERNER Comment: Interpretive Data Percent cell count reference ranges are not reported, since discordance with absolute values may lead to misinterpretation of CBC data. Current Interpretive Data was last revised on 2017. Testing performed by: [address] [address] Imm gran pct 0.2 % [facility] Comment: Interpretive Data Percent cell count reference ranges are not reported, since discordance with absolute values may lead to misinterpretation of CBC data. Current Interpretive Data was last revised on 2017. Testing performed by: [address] [address] Lymphocyte pct 46.6 % [facility] Comment: Interpretive Data Percent cell count reference ranges are not reported, since discordance with absolute values may lead to misinterpretation of CBC data. Current Interpretive Data was last revised on 2017. Testing performed by: [address] [address] Monocyte pct 6.6 % [facility] Comment: Interpretive Data Percent cell count reference ranges are not reported, since discordance with absolute values may lead to misinterpretation of CBC data. Current Interpretive Data was last revised on 2017. Testing performed by: [address] [address] Eosinophil pct 2.4 % CERNER Comment: Interpretive Data Percent cell count reference ranges are not reported, since discordance with absolute values may lead to misinterpretation of CBC data. Current Interpretive Data was last revised on 2017. Testing performed by: [address] [address] Basophil pct 0.5 % C[facility]ER Comment: Interpretive Data Percent cell count reference ranges are not reported, since discordance with absolute values may lead to misinterpretation of CBC data. Current Interpretive Data was last revised on 2017. Testing performed by: [address] [address] Blood 03/09/2024 4:47 AM REVENUE CYCLE ADMINISTRATOR 03/09/2024 4:50 AM REVENUE CYCLE ADMINISTRATOR us Apryl Mazariegos MD LAB BLOOD ORDERABLES Fin al Result [facility] [address] [facility] Department [place] [address] * (ABNORMAL) CBC with auto differential (03/09/2024 4:47 AM REVENUE CYCLE ADMINISTRATOR) WBC 6.4 3.8 - 9.9 K/cumm Comment:Testing performed by : [address] [address] Hgb 11.4(L) 11.9 - 15.5 g/dL [facility] Comment:Testing performed by : [address] [address] Hct 34.6(L) 35.6 - 45.5 % [facility] Comment:Testing performed by : [address] [address] Plt 295 150 - 400 K/cumm [facility]NE Comment:Testing performed by : [address] [address] MPV 10.4 9.1 - 12.3 fL [facility] Comment:Testing performed by : [address] [address] RBC 4.28 3.90 - 5.20 M/cumm [facility] Comment:Testing performed by : [address] [address] MCV 80.8(L) 81.3 - 96.4 fL [facility] Comment:Testing performed by : [address] [address] MCH 26.6(L) 27.1 - 33.3 pg [facility]NE Comment:Testing performed by : [address] [address] MCHC 32.9 32.3 - 35.7 g/dL [facility] Comment:Testing performed by : [address], [address] RDW CV 13.1 11.1 - 14.9 % [facility] Comment:Testing performed by : [address] [place] [address] RDW SD 38.0 35.7 - 48.1 fL [facility] QIU Comment:Testing performed by : [address] [address] NRBC abs 0.00 0.00 - 0.01 K/cumm [facility] QIU Comment:Testing performed by : [address] [address] Blood 03/09/2024 4:47 AM REVENUE CYCLE ADMINISTRATOR 03/09/2024 4:50 AM REVENUE CYCLE ADMINISTRATOR us Apryl Mazariegos MD LAB BLOOD ORDERABLES Fin al Result [facility] QIU [facility] [place] [address] * (ABNORMAL) Comprehensive metabolic panel (03/09/2024 4:47 AM REVENUE CYCLE ADMINISTRATOR) Sodium 140 135 - 145 mmol/L Comment:Testing performed by : [address] [address] Potassium, pl 3.2(L) 3.3 - 4.9 mmol/L [facility] QIU Comment:Testing performed by : [address] [address] Chloride 103 97 - 110 mmol/L [facility] Comment:Testing performed by : [address] [address] CO2 26 22 - 32 mmol/L [facility] Comment:Testing performed by : [address] [address] Anion gap 11 2 - 15 mmol/L [facility] Comment:Testing performed by : [address] [address] BUN 14 6 - 25 mg/dL [facility] QIU Comment:Testing performed by : [address] [address] Creatinine 0.60 0.60 - 1.10 mg/dL [facility] QIU Comment:Testing performed by : [address] [address] Glucose 126 70 - 199 mg/dL [facility] [...] was last revised 2022. Testing performed by: [address] [address] Calcium 9.4 8.5 - 10.3 mg/dL [facility] Comment:Testing performed by : [address] [address] Bilirubin, total 0.4 0.1 - 1.2 mg/dL [facility] Comment:Testing performed by : [address] [address] Protein, pl 7.3 6.5 - 8.5 g/dL [facility] Comment:Testing performed by : [address] [address] Albumin 4.4 3.5 - 5.0 g/dL [facility] Comment:Testing performed by : [address] [address] Alk phos 69 40 - 130 Units/L [facility] Comment:Testing performed by : [address] [address] ALT 12 7 - 45 Units/L [facility] Comment:Testing performed by : [address] [address] AST 14 10 - 45 Units/L [facility] Comment:Testing performed by : [address] [address] Blood 03/09/2024 4:47 AM REVENUE CYCLE ADMINISTRATOR 03/09/2024 4:50 AM REVENUE CYCLE ADMINISTRATOR us Apryl Mazariegos MD LAB BLOOD ORDERABLES Fin al Result [facility] [address] [facility] [place] [address] * XR Chest Pa Lateral 2 Vw (03/09/2024 4:38 AM REVENUE CYCLE ADMINISTRATOR) Anatomical Region Laterality Modality Body, Chest N/A Computed Radiogr aphy 03/09/2024 4:53 AM REVENUE CYCLE ADMINISTRATOR Narrative 03/09/2024 4:54 AM REVENUE CYCLE ADMINISTRATOR EXAM DESCRIPTION: XR CHEST PA LATERAL 2 VIEWS REASON FOR STUDY: Thoracic back pain ?? Upper back and neck pain since vel on Tuesday. ? TECHNIQUE: ??Frontal and lateral [...] AM T: ??03/09/2024 4:54 AM Report ID: [id number] Reading Location: ??[id number] Procedure Note Waqas Parish MD - 03/09/2024 EXAM DESCRIPTION: XR CHEST PA LATERAL 2 VIEWS REASON FOR STUDY: Thoracic back pain Upper back and neck pain since vel on Tuesday. TECHNIQUE: Frontal and lateral views of the [...] Waqas Parish M.D. AR: ISA Report ID: [id number] Reading Location: [id number] Result [facility] Apryl Mazariegos MD IMG XR PROCEDURES Final Result * POCT hCG, urine (03/09/2024 3:23 AM REVENUE CYCLE ADMINISTRATOR) Pathologist [facility] HCG, ur, POC Negative Negative Lot Number [id number] QC Backgroud Clear Acceptable QC Control Line Acceptable Urine 03/09/2024 3:23 AM REVENUE CYCLE ADMINISTRATOR Apryl Mazariegos MD POINT OF CARE TEST ORDER CRISTINO Final Result * SURESWAB(R), CT/NG, T VAGINALIS (02/01/2024 2:56 PM REVENUE CYCLE ADMINISTRATOR) Pathologist [facility] C. trachomatis RNA NOT DETECTED NOT DETECTED [facility] N. gonorrhoeae RNA NOT DETECTED NOT DETECTED [facility] Comment [facility] Comment: The analytical performance characteristics of this assay, when used to test SurePath(TM) specimens have been determined by [facility]. The modifications have not been cleared or approved by the FDA. This assay has been validated pursuant to the CLIA regulations and is used for clinical purposes. For additional information, please refer to https://Analytics Quotient.Hashable.ReelD[employer]./faq/WLU136 (This link is being provided for information/ educational purposes only.) Trichomonas vaginalis NOT DETECTED NOT DETECTED [facility] Comment: For additional information, please refer to http://education.Hashable.ReelD[employer], [employer] faq/Trichomonastma (This link is being provided for informational/ educational purposes only.) Endocervical/vag inal 02/01/2024 2:56 PM REVENUE CYCLE ADMINISTRATOR 02/02/2024 10:42 AM REVENUE CYCLE ADMINISTRATOR Carolyne Schroeder MD LAB BLOOD ORDERABLES Fi nal Result [facility] [address] [address] [phone] * POCT WET PREP (02/01/2024 2:53 PM REVENUE CYCLE ADMINISTRATOR) Trichomonas, Wet Prep Not present Not present Yeast, Wet Prep Not present Not present Clue Cells, Wet Prep Present Not present Epithelial Cells, Wet Prep Present Not present Bacilli, Wet Prep Present Not present Spermatozoa, Wet Prep Not present Not present RBC, Wet Prep Not present Not present Vaginal 02/01/2024 2:53 PM REVENUE CYCLE ADMINISTRATOR Carolyne Schroeder MD POINT OF CARE TEST ORDE RABLES Final Result * POCT SANTA prep yeast/fungus (02/01/2024 2:53 PM REVENUE CYCLE ADMINISTRATOR) SANTA Prep, POC Yeast/Fungi are Absent Yeast/Khanh i are Absent Swab 02/01/2024 2:53 PM REVENUE CYCLE ADMINISTRATOR Carolyne Schroeder MD POINT OF CARE TEST ORDE RABLES Final Result * POCT vaginal pH (02/01/2024 2:53 PM REVENUE CYCLE ADMINISTRATOR) PH, POC 8 Vaginal 02/01/2024 2:53 PM REVENUE CYCLE ADMINISTRATOR Carolyne Schroeder MD POINT OF CARE TEST ORDE RABLES Final Result * (ABNORMAL) Pap and High Risk HPV and Genotyping (Cytology Component) (02/01/2024 2:52 PM REVENUE CYCLE ADMINISTRATOR) Thin prep (Pap test) 02/01/2024 2:52 PM REVENUE CYCLE ADMINISTRATOR 02/02/2024 12:30 PM REVENUE CYCLE ADMINISTRATOR Narrative PATHOLOGY [facility] - 02/13/2024 11:59 AM REVENUE CYCLE ADMINISTRATOR EPIC results best viewed via link to PDF [facility] [place] [address] Note to Patients: This report may contain [...] ??F : ??1975 (Age: 48) Address: ??[address] [place] [address] ??[phone] Hospital #: ??[id number] Service: ??DEFAULT Location: ?? Patient Type: ??[facility] SPECIMEN Taken: ??02/01/2024 Received: ??02/02/2024 Accessioned: [...] this test have been verified by the [facility] Molecular Infectious Disease laboratory. ??Correlate with reported [...] clinical information and biopsy results as indicated. [facility] Clinical Laboratory Improvement Amendments (CLIA) mandate that cytologic and histologic results be correlated for laboratory quality assurance clerk & improvement standards. ??FOR ALL HIGH-GRADE CASES [...] determined by the Surgical Pathology Department at [facility] as part of an ongoing quality assurance director program and in compliance with federally mandated [...] determined by the Surgical Pathology Department of [facility]. ??It has not been cleared or approved by the U. S. Food and Drug Administration. Carolyne Schroeder MD LAB CYTOLOGY ORDERABLES Final Result PATHOLOGY [facility] * (ABNORMAL) High Risk HPV DNA Detection with Genotyping (Molecular component) (02/01/2024 2:22 PM REVENUE CYCLE ADMINISTRATOR) HPV HR 16 Not Detected Not Detected [facility] Comment:Testing performed by : [facility], [address] [place] [address], [place]., [address] HPV HR 18 Not Detected Not Detected [facility]IU Comment:Testing performed by : [facility], [address] [place]., [address] HPV HR Non 16/18 Detected(A) Not Detected [...] this test have been verified by the [facility] Molecular Infectious Disease laboratory. Correlate with separately reported cytology results, as applicable. Interpretive data last revised 22 Testing performed by: [facility], [address] [facility], [place]., [address] Endocervical 02/01/2024 2:22 PM REVENUE CYCLE ADMINISTRATOR 02/06/2024 10:35 AM REVENUE CYCLE ADMINISTRATOR Narrative [facility] - 02/07/2024 3:05 AM REVENUE CYCLE ADMINISTRATOR Clinical history and diagnosis->screening Number of vials->1 Testing type->Screening Last menstrual period (date if known)->depo Menstrual status->Irregular Contraceptive use->Depo-provera us Carolyne Schroeder MD LAB BODY FLUIDS AND STO OLS ORDERABLES Final Result [facility] [address] [facility] [place] [address] [facility] * Screening Mammogram Bilateral W Quintin (03/22/2023 10:20 AM REVENUE CYCLE ADMINISTRATOR) Anatomical Region Laterality Modality Breast Bilateral Mammography Impressions 03/22/2023 10:57 AM REVENUE CYCLE ADMINISTRATOR BI-RADS?? ATLAS category (overall): 1 - Negative There is no mammographic evidence of malignancy. A 1 year screening mammogram is recommended. The patient has been or will be contacted. We recommend annual screening mammography for women at average risk of breast cancer beginning at age 40, based on guidelines of the [employer] Radiology (ACR Practice Parameter for the Performance of Screening and Diagnostic Mammography) and [employer]. For women with and elevated risk of breast cancer, please refer to the ACR Practice Parameter for specific screening recommendations. The patient will be entered into a reminder system with a target due date of 1 year for her next screening exam. Narrative 03/22/2023 10:57 AM REVENUE CYCLE ADMINISTRATOR Screening Mammogram Bilateral W Quintin: 03/22/23 The [...] Most Recently Relevant to Health Maintenance Insurance [employer] Care Teams Document Scanner Relationship Specialty Start Date End Date Juan Ace MD PCP - General Family Practice 12/14/21 Kalani Ace MD [id number] [facility] [address] [id number] Resident Obstetrics and Gynecology 07/25/23
== END 2024-03-25 10:20 | disposition home or self-care (01) ==
DX: M47.812 Spondylosis without myelopathy or radiculopathy, cervical region (principal)
CPT/HCPCS: 72141